=== PATIENT | female | born 1945 | race Caucasian/White ===

== ENCOUNTER → 2018-07-12 01:59 | Outpatient (CLI) | payer BC, SELFPAY ==
--- NOTE | 2018-07-12 16:19 | DI.REPORT_ITS ---
SYMPTOMS/DIAGNOSIS: SCREENING, Z12.31 MAMMOGRAMS: Mammograms were interpreted according to the usual protocol including computer analysis with CAD system, tomosynthesis and C view imaging. The breast tissue is of moderate radiodensity. There is no evidence of a mass. There are no suspicious calcifications. When compared with a previous examination, there is a question regarding interval development of a tiny area of nodularity in the superior portion of the right breast. Further evaluation of this patient with a mediolateral compression spot film and ultrasound is recommended. SUMMARY: Category 0. Breast density category B. MQSA ASSESSMENT OF FINDINGS: Incomplete: Needs additional imaging evaluation. Category 0. Patient will receive a letter notifying them of these results. BI-RADS category B. There are scattered areas of fibroglandular density.
== END ==
PROVIDERS: PCP Family Medicine; Visit Provider Family Medicine
DX: Z12.31 Encounter for screening mammogram for malignant neoplasm of breast (principal); R92.8 Other abnormal and inconclusive findings on diagnostic imaging of breast
CPT/HCPCS: 77063; 77067

== ENCOUNTER 2018-07-18 06:25 | Outpatient (CLI) | payer BC, SELFPAY ==
--- NOTE | 2018-07-18 13:50 | DI.MAMMO_ITS ---
SYMPTOMS/DIAGNOSIS: F/U MAMMO, NODULARITY ADDITIONAL MAMMOGRAPHIC VIEWS RIGHT BREAST: Additional images are interpreted according to the usual protocol including tomosynthesis and 2D imaging. Additional mammographic views were obtained to evaluate suboptimally defined nodular radiodensity identified on recent mammogram in the superior posterior aspect of the right breast on MLO view. Tomographic spot compression view shows 4 mm in diameter well circumscribed nodule with a clearly defined hilum. This appears to have been present on multiple previous examinations and is unchanged or smaller on today's examination. The findings are consistent with an intramammary lymph node. CONCLUSION: No specific evidence of malignancy. Follow up mammogram requested in 12 months. Category 2. Breast density Category B. SA ASSESSMENT OF FINDINGS: Negative with benign findings. Category 2. Patient will receive a letter notifying them of these results. BI-RADS category B. There are scattered areas of fibroglandular density.
== END 2018-07-18 06:45 ==
PROVIDERS: PCP Family Medicine; Visit Provider Family Medicine
DX: Z12.31 Encounter for screening mammogram for malignant neoplasm of breast (principal); R92.8 Other abnormal and inconclusive findings on diagnostic imaging of breast; N60.81 Other benign mammary dysplasias of right breast
CPT/HCPCS: 77063; 77067

== ENCOUNTER 2018-09-09 00:11 | Outpatient (CLI) | payer BC, SELFPAY ==
[2018-09-09 09:34] LABS: Abs Immature Grans 0.03 k/cumm (0.0-0.09); Absolute Basophil Count 0.03 k/cumm (0.0-0.2); Absolute Eosinophil Count 0.47 k/cumm (0.0-0.7); Absolute Lymphocyte Count 1.67 k/cumm (1.2-3.4); Absolute Monocyte Count 0.69 k/cumm (0.11-0.7); Absolute Neutrophil Count 3.04 k/cumm (1.2-6.7); Basophils % 0.5; Eosinophils % 7.9; HCT 39.7 % (36.0-46.0); HGB 13.2 g/dL (12.0-15.5); Immature Grans % 0.5; Lymphocytes % 28.2; Mean Corp. HGB Concentration 33.2 g/dL (32.0-36.0); Mean Corpuscular Hemoglobin 31.1 pg (27.0-33.0); Mean Corpuscular Volume 93.4 fL (80-95); Mean Platelet Volume 9.2 fL (8.0-11.0); Monocytes % 11.6; Neutrophils % 51.3; Platelet Count 254 x1000/uL (130-400); RBC 4.25 m/cumm (4.00-5.20); RBC Distribution Width 14.2 % (11.7-14.6); White Blood Cell Count 5.93 k/cumm (4.4-10.8)
[2018-09-09 10:47] LABS: ALT 25 U/L (12-78); AST 19 U/L (15-37); Albumin 3.6 g/dL (3.4-5.0); Alkaline Phosphatase 127 U/L (46-116); Anion Gap 10.9 mmol/L (3-11); BUN 13 mg/dL (7-18); Bilirubin, Total 0.6 mg/dL (0.2-1.0); C-Reactive Protein 0.36 mg/dL (0.0-0.3); CO2 28.1 mmol/L (21.0-32.0); CREATININE 0.98 mg/dL (0.55-1.02); Calcium 9.3 mg/dL (8.5-10.1); Chloride 103 mmol/L (98-107); Estimated GFR 55.63 (mL/min/1.73m2); Glucose 82 mg/dL (70-100); Sodium 142 mmol/L (136-145); Total Protein 6.3 g/dL (6.4-8.2)
[2018-09-09 10:50] LABS: ESR 20 MM/HR (0-30)
== END 2018-09-09 00:31 ==
PROVIDERS: PCP Family Medicine; Visit Provider Internal Medicine
DX: M06.00 Rheumatoid arthritis without rheumatoid factor, unspecified site (principal)
CPT/HCPCS: 36415; 80053; 85652; 85025; 86140

== ENCOUNTER 2018-09-19 01:05 | Outpatient (CLI) | payer BC, SELFPAY ==
--- NOTE | 2018-09-19 17:05 | DI.DEXA_ITS ---
SYMPTOM/DIAGNOSIS: BONE DISORDER, M89.9 DEXA SCAN: Dexa scan was performed according to the usual protocol. The scanogram is unremarkable. For the left forearm, a T score of -2.4 and a Z score of -0.2 are consistent with osteoporosis and a high fracture risk. For the left hip, a T score of - 1.4 and a Z score of 0.2 are indicative of osteopenia and an increased fracture risk. For the lumbar spine, a T score of 0.3 and a Z score of 2.6 are within the normal range.
== END 2018-09-19 01:25 ==
PROVIDERS: PCP Family Medicine; Visit Provider Internal Medicine
DX: M81.0 Age-related osteoporosis without current pathological fracture (principal); M85.88 Other specified disorders of bone density and structure, other site
CPT/HCPCS: 77080

== ENCOUNTER 2018-12-12 01:36 | Outpatient (CLI) | payer BC, SELFPAY ==
[2018-12-12 10:09] LABS: Abs Immature Grans 0.02 k/cumm (0.0-0.09); Absolute Basophil Count 0.03 k/cumm (0.0-0.2); Absolute Eosinophil Count 0.32 k/cumm (0.0-0.7); Absolute Monocyte Count 0.55 k/cumm (0.11-0.7); Absolute Neutrophil Count 4.66 k/cumm (1.2-6.7); Basophils % 0.4; Eosinophils % 4.3; HCT 41.6 % (36.0-46.0); HGB 13.9 g/dL (12.0-15.5); Immature Grans % 0.3; Lymphocytes % 24.4; Mean Corp. HGB Concentration 33.4 g/dL (32.0-36.0); Mean Corpuscular Hemoglobin 31.4 pg (27.0-33.0); Mean Corpuscular Volume 94.1 fL (80-95); Monocytes % 7.5; Neutrophils % 63.1; Platelet Count 228 x1000/uL (130-400); RBC 4.42 m/cumm (4.00-5.20); RBC Distribution Width 13.9 % (11.7-14.6); White Blood Cell Count 7.38 k/cumm (4.4-10.8)
[2018-12-12 10:56] LABS: ESR 14 MM/HR (0-30)
[2018-12-12 11:40] LABS: ALT 33 U/L (12-78); AST 27 U/L (15-37); Albumin 3.7 g/dL (3.4-5.0); Alkaline Phosphatase 112 U/L (46-116); BUN 21 mg/dL (7-18); Bilirubin, Total 0.9 mg/dL (0.2-1.0); C-Reactive Protein 0.23 mg/dL (0.0-0.3); CREATININE 0.96 mg/dL (0.55-1.02); Calcium 8.9 mg/dL (8.5-10.1); Chloride 105 mmol/L (98-107); Estimated GFR 56.97 (mL/min/1.73m2); Glucose 77 mg/dL (70-100); Potassium 3.9 mmol/L (3.5-5.1); Sodium 142 mmol/L (136-145); Total Protein 6.6 g/dL (6.4-8.2)
== END 2018-12-12 01:56 ==
PROVIDERS: PCP Family Medicine; Visit Provider Internal Medicine
DX: M06.00 Rheumatoid arthritis without rheumatoid factor, unspecified site (principal)
CPT/HCPCS: 36415; 80053; 85652; 85025; 86140

== ENCOUNTER 2019-01-08 14:44 | Outpatient (CLI) | payer BC, SELFPAY ==
--- NOTE | 2019-01-08 12:00 | DI.RAD_ITS ---
SYMPTOMS/DIAGNOSIS: KNEE PAIN X 1 WEEK, M25.562 LEFT KNEE: The joint spaces are well maintained. There is mild spurring at the articular aspect of the patella and quadriceps insertion on the patella. No joint effusion is seen. The bones appear normally mineralized. IMPRESSION: Mild patellofemoral degenerative changes.
[2019-01-08 13:13] LABS: Hemoglobin A1C 5.6 % (4.5-6.2)
[2019-01-08 14:17] LABS: Vitamin D 25 Total 75.2 ng/ml (30-100)
== END 2019-01-08 15:04 ==
PROVIDERS: PCP Family Medicine; Visit Provider Family Medicine
DX: M25.562 Pain in left knee (principal); M17.12 Unilateral primary osteoarthritis, left knee; R73.09 Other abnormal glucose; E55.9 Vitamin D deficiency, unspecified
CPT/HCPCS: 36415; 73562; 82306; 83036

== ENCOUNTER 2019-03-10 07:28 | Outpatient (CLI) | payer BC, SELFPAY ==
[2019-03-10 09:51] LABS: Abs Immature Grans 0.02 k/cumm (0.0-0.09); Absolute Basophil Count 0.02 k/cumm (0.0-0.2); Absolute Eosinophil Count 0.23 k/cumm (0.0-0.7); Absolute Lymphocyte Count 1.84 k/cumm (1.2-3.4); Absolute Monocyte Count 0.68 k/cumm (0.11-0.7); Absolute Neutrophil Count 2.82 k/cumm (1.2-6.7); Basophils % 0.4; Eosinophils % 4.1; HCT 41.4 % (36.0-46.0); HGB 14.1 g/dL (12.0-15.5); Immature Grans % 0.4; Lymphocytes % 32.8; Mean Corp. HGB Concentration 34.1 g/dL (32.0-36.0); Mean Corpuscular Hemoglobin 31.4 pg (27.0-33.0); Mean Corpuscular Volume 92.2 fL (80-95); Mean Platelet Volume 9.3 fL (8.0-11.0); Monocytes % 12.1; Neutrophils % 50.2; Platelet Count 229 x1000/uL (130-400); RBC 4.49 m/cumm (4.00-5.20); RBC Distribution Width 13.5 % (11.7-14.6); White Blood Cell Count 5.61 k/cumm (4.4-10.8)
[2019-03-10 10:27] LABS: ESR 14 MM/HR (0-30)
[2019-03-10 10:31] LABS: ALT 23 U/L (12-78); AST 19 U/L (15-37); Albumin 3.9 g/dL (3.4-5.0); Alkaline Phosphatase 94 U/L (46-116); Anion Gap 10.4 mmol/L (3-11); BUN 19 mg/dL (7-18); Bilirubin, Total 0.7 mg/dL (0.2-1.0); C-Reactive Protein 0.19 mg/dL (0.0-0.3); CO2 25.6 mmol/L (21.0-32.0); CREATININE 0.94 mg/dL (0.55-1.02); Chloride 106 mmol/L (98-107); Estimated GFR 58.37 (mL/min/1.73m2); Glucose 95 mg/dL (70-100); Potassium 4.3 mmol/L (3.5-5.1); Sodium 142 mmol/L (136-145); Total Protein 6.7 g/dL (6.4-8.2)
== END 2019-03-10 07:48 ==
PROVIDERS: PCP Family Medicine; Visit Provider Internal Medicine
DX: M06.00 Rheumatoid arthritis without rheumatoid factor, unspecified site (principal)
CPT/HCPCS: 36415; 80053; 85652; 85025; 86140

== ENCOUNTER 2019-06-15 07:43 | Outpatient (CLI) | payer BC, SELFPAY ==
[2019-06-15 08:08] LABS: Abs Immature Grans 0.01 k/cumm (0.0-0.09); Absolute Basophil Count 0.02 k/cumm (0.0-0.2); Absolute Eosinophil Count 0.24 k/cumm (0.0-0.7); Absolute Lymphocyte Count 1.64 k/cumm (1.2-3.4); Absolute Monocyte Count 0.64 k/cumm (0.11-0.7); Absolute Neutrophil Count 3.68 k/cumm (1.2-6.7); Basophils % 0.3; Eosinophils % 3.9; HCT 43.6 % (36.0-46.0); HGB 14.5 g/dL (12.0-15.5); Immature Grans % 0.2; Lymphocytes % 26.3; Mean Corp. HGB Concentration 33.3 g/dL (32.0-36.0); Mean Corpuscular Hemoglobin 31.2 pg (27.0-33.0); Mean Corpuscular Volume 93.8 fL (80-95); Mean Platelet Volume 9.3 fL (8.0-11.0); Monocytes % 10.3; Platelet Count 243 x1000/uL (130-400); RBC 4.65 m/cumm (4.00-5.20); RBC Distribution Width 13.7 % (11.7-14.6); White Blood Cell Count 6.23 k/cumm (4.4-10.8)
[2019-06-15 09:35] LABS: ESR 16 mm/hr (0-30)
[2019-06-15 10:01] LABS: ALT 27 U/L (12-78); AST 17 U/L (15-37); Albumin 4.1 g/dL (3.4-5.0); Alkaline Phosphatase 86 U/L (46-116); Anion Gap 8.7 mmol/L (3-11); BUN 21 mg/dL (7-18); Bilirubin, Total 0.8 mg/dL (0.2-1.0); CO2 28.3 mmol/L (21.0-32.0); CREATININE 1.14 mg/dL (0.55-1.02); Calcium 9.1 mg/dL (8.5-10.1); Chloride 103 mmol/L (98-107); Estimated GFR 46.72 (mL/min/1.73m2); Glucose 94 mg/dL (70-100); Potassium 4.2 mmol/L (3.5-5.1); Sodium 140 mmol/L (136-145); Total Protein 6.9 g/dL (6.4-8.2)
== END 2019-06-15 08:03 ==
PROVIDERS: PCP Family Medicine; Visit Provider Internal Medicine
DX: M06.00 Rheumatoid arthritis without rheumatoid factor, unspecified site (principal); Z79.899 Other long term (current) drug therapy
CPT/HCPCS: 36415; 80053; 85652; 85025; 86140

== ENCOUNTER 2019-07-20 03:48 | Outpatient (CLI) | payer BC, SELFPAY ==
[2019-07-20 07:43] LABS: Abs Immature Grans 0.01 k/cumm (0.0-0.09); Absolute Basophil Count 0.02 k/cumm (0.0-0.2); Absolute Eosinophil Count 0.31 k/cumm (0.0-0.7); Absolute Lymphocyte Count 1.53 k/cumm (1.2-3.4); Absolute Monocyte Count 0.53 k/cumm (0.11-0.7); Absolute Neutrophil Count 2.67 k/cumm (1.2-6.7); Basophils % 0.4; Eosinophils % 6.1; HGB 13.4 g/dL (12.0-15.5); Immature Grans % 0.2; Lymphocytes % 30.2; Mean Corp. HGB Concentration 33.5 g/dL (32.0-36.0); Mean Corpuscular Hemoglobin 31.5 pg (27.0-33.0); Mean Corpuscular Volume 94.1 fL (80-95); Mean Platelet Volume 9.3 fL (8.0-11.0); Monocytes % 10.5; Neutrophils % 52.6; Platelet Count 228 x1000/uL (130-400); RBC 4.25 m/cumm (4.00-5.20); RBC Distribution Width 13.4 % (11.7-14.6); White Blood Cell Count 5.07 k/cumm (4.4-10.8)
[2019-07-20 08:30] LABS: ESR 11 mm/hr (0-30)
[2019-07-20 09:13] LABS: ALT 29 U/L (14-59); AST 23 U/L (15-37); Albumin 3.8 g/dL (3.4-5.0); Alkaline Phosphatase 71 U/L (46-116); Anion Gap 8.4 mmol/L (3-11); BUN 15 mg/dL (7-18); Bilirubin, Total 0.6 mg/dL (0.2-1.0); C-Reactive Protein 0.23 mg/dL (0.0-0.3); CO2 27.6 mmol/L (21.0-32.0); CREATININE 1.06 mg/dL (0.55-1.02); Calcium 8.8 mg/dL (8.5-10.1); Chloride 108 mmol/L (98-107); Estimated GFR 50.81 (mL/min/1.73m2); Glucose 91 mg/dL (70-100); Potassium 4.5 mmol/L (3.5-5.1); Sodium 144 mmol/L (136-145); Total Protein 6.5 g/dL (6.4-8.2)
== END 2019-07-20 04:08 ==
PROVIDERS: PCP Family Medicine; Referring Provider Family Medicine; Visit Provider Internal Medicine
DX: M06.00 Rheumatoid arthritis without rheumatoid factor, unspecified site (principal); Z79.899 Other long term (current) drug therapy
CPT/HCPCS: 36415; 80053; 85652; 85025; 86140

== ENCOUNTER 2019-07-30 00:59 | Outpatient (CLI) | payer BC, SELFPAY ==
--- NOTE | 2019-07-30 15:22 | DI.RAD_ITS ---
EXAM: XR LUMBAR SPINE COMPLETE CLINICAL HISTORY: LOW BACK AND LT LEG PAIN,M54.5,G89.29 TECHNIQUE: COMPARISON: No exams were available for comparison FINDINGS: Five views were obtained. There is a mild left convex lumbar scoliosis . There are moderate hypertr ophic degenerative changes of the facet joints and vertebral endplates throughout the lumbar spine. No compression fracture seen. Multilevel disc space loss of height noted. No gross spondylolysis or spondylolisthesis. Mild DJD of the SI joints and hips noted. IMPRESSION: Moderate degenerative changes of the lumbar spine.
--- NOTE | 2019-07-30 15:22 | DI.RAD_ITS ---
EXAM: XR HIP PELVIS ADULT BL CLINICAL HISTORY: BILAT HIP PAIN, M25.559 TECHNIQUE: COMPARISON: No exams were available for comparison FINDINGS: Four views were obtained. There is moderate loss of cartilaginous joint spaces of both hips. Modera te hypertrophic spurring of the acetabula and femoral heads noted. Mild DJD of the SI joints bilater ally. IMPRESSION: Moderate DJD both hands.
== END 2019-07-30 01:19 ==
PROVIDERS: PCP Family Medicine; Visit Provider Family Medicine
DX: M25.551 Pain in right hip (principal); M25.552 Pain in left hip; M16.0 Bilateral primary osteoarthritis of hip; M53.3 Sacrococcygeal disorders, not elsewhere classified; M54.5 Low back pain; M79.605 Pain in left leg; G89.29 Other chronic pain; M47.26 Other spondylosis with radiculopathy, lumbar region
CPT/HCPCS: 73521; 72110

== ENCOUNTER 2019-10-15 00:55 | Outpatient (CLI) | payer BC, SELFPAY ==
[2019-10-15] MEDS: methylPREDNISolone ACETATE 80 MG/ML VIAL IM ×2 (12:58→13:02)
[2019-10-15] MEDS: Bupivacaine 0.5% Pres-Free 10 ML VIAL IJ ×2 (12:59→13:03)
[2019-10-15] MEDS: Omnipaque 300 MG/ML 10 ML BTL IJ ×2 (13:01→13:03)
--- NOTE | 2019-10-15 13:28 | DI.RAD_ITS ---
EXAM: RF JOINT INJECTION FLUORO GUID CLINICAL HISTORY: HIP PAIN, ARTHRITIS, M16.10 TECHNIQUE: 2D and realtime digital imaging was performed. COMPARISON: No exams were available for comparison FINDINGS: Fluoroscopy was utilized by Dr. Hedrick during the performance of a right hip injection. Please ref er to the procedure report for complete details. Fluoro Time: 10.4 seconds
--- NOTE | 2019-10-15 13:32 | DI.RAD_ITS ---
EXAM: RF JOINT INJECTION FLUORO GUID CLINICAL HISTORY: HIP PAIN, ARTHRITIS, M16.10 TECHNIQUE: 2D and realtime digital imaging was performed. COMPARISON: No exams were available for comparison FINDINGS: Fluoroscopy was utilized by Dr. Hedrick during the performance of a left hip injection. Please refe r to the procedure report for complete details. Fluoro Time: 9.9 seconds
--- NOTE | 2019-10-15 17:30 | W.PROCNOTE ---
Date of service: 10/15/19 Time of Service: 12:30 Procedure Note Date of procedure: 10/15/19 Procedure: Bilateral hip Injection with Fluoroscopic Guidance Surgeon/Proceduralist/Physician: Raymond Hedrick Procedure Diagnosis: Bilateral hip Osteoarthritis Procedure Indications: Shona has had persistent pain of both hip and groin. Noninvasive measures have been tried. To serve as both diagnostic and therapeutic, an injection under fluoroscopy was recommended. I had discussed the risks of the procedure and the patient elected to proceed. Procedure Description: Shona was greeted in the flouroscopy room. The consent was reviewed with the patient and signed. The patient was then placed in the supine position on the fluoroscopy table. The LEFT hip was then prepped with Chloraprep. The anterolateral injection starting point was identiifed by bony landmarks and fluoroscopy. The skin and soft tissue in the tract of the injection was anesthetized with 1% Lidocaine. A spinal needle was then inserted deep into the hip joint at the level of the lateral femoral neck under fluoroscopic guidance. A small amount of Omnipaque solution was injected to confirm intraarticular placement. Once confirmed, the hip was injected with 5cc of 0.5% Bupivacaine and 80mg of Depo-Medrol. A bandaid was placed on the injection site. The RIGHT hip was then prepped with Chloraprep. The anterolateral injection starting point was identiifed by bony landmarks and fluoroscopy. The skin and soft tissue in the tract of the injection was anesthetized with 1% Lidocaine. A spinal needle was then inserted deep into the hip joint at the level of the lateral femoral neck under fluoroscopic guidance. A small amount of Omnipaque solution was injected to confirm intraarticular placement. Once confirmed, the hip was injected with 5cc of 0.5% Bupivicaine and 80mg of Depo-Medrol. A bandaid was placed on the injection site. Shona tolerated the procedure well and noted slight improvement in pre-injection pain.
== END 2019-10-15 01:15 ==
PROVIDERS: PCP Family Medicine; Visit Provider Student in an Organized Health Care Education/Training Program
DX: M25.551 Pain in right hip (principal); M25.552 Pain in left hip; M16.0 Bilateral primary osteoarthritis of hip
CPT/HCPCS: 20610 ×2; 77002; J1040

== ENCOUNTER 2019-12-29 01:49 | Outpatient (CLI) | payer BC, SELFPAY ==
[2019-12-29 10:31] LABS: Abs Immature Grans 0.02 k/cumm (0.0-0.09); Absolute Basophil Count 0.02 k/cumm (0.0-0.2); Absolute Eosinophil Count 0.23 k/cumm (0.0-0.7); Absolute Lymphocyte Count 1.57 k/cumm (1.2-3.4); Absolute Monocyte Count 0.68 k/cumm (0.11-0.7); Absolute Neutrophil Count 3.57 k/cumm (1.2-6.7); Basophils % 0.3; Eosinophils % 3.8; HCT 40.3 % (36.0-46.0); HGB 13.3 g/dL (12.0-15.5); Immature Grans % 0.3 %; Lymphocytes % 25.8; Mean Corpuscular Hemoglobin 31.7 pg (27.0-33.0); Mean Platelet Volume 9.3 fL (8.0-11.0); Monocytes % 11.2; Neutrophils % 58.6; Platelet Count 213 x1000/uL (130-400); RBC Distribution Width 13.7 % (11.7-14.6); White Blood Cell Count 6.09 k/cumm (4.4-10.8)
[2019-12-29 10:44] LABS: C-Reactive Protein 0.27 mg/dL (0.0-0.3)
[2019-12-29 10:46] LABS: ALT 29 U/L (14-59); AST 24 U/L (15-37); Albumin 4.1 g/dL (3.4-5.0); Alkaline Phosphatase 66 U/L (46-116); Anion Gap 10.7 mmol/L (3-11); BUN 14 mg/dL (7-18); Bilirubin, Total 0.9 mg/dL (0.2-1.0); CO2 26.3 mmol/L (21.0-32.0); CREATININE 1.03 mg/dL (0.55-1.02); Calcium 8.4 mg/dL (8.5-10.1); Chloride 107 mmol/L (98-107); Estimated GFR 52.38 (mL/min/1.73m2); Glucose 77 mg/dL (74-106); Potassium 4.1 mmol/L (3.5-5.1); Sodium 144 mmol/L (136-145); Total Protein 6.4 g/dL (6.4-8.2)
[2019-12-29 11:59] LABS: ESR 15 mm/hr (0-30)
== END 2019-12-29 02:09 ==
PROVIDERS: Internal Medicine; PCP Family Medicine; Visit Provider Family Medicine
DX: M06.00 Rheumatoid arthritis without rheumatoid factor, unspecified site (principal); Z79.899 Other long term (current) drug therapy; I10 Essential (primary) hypertension; M16.10 Unilateral primary osteoarthritis, unspecified hip
CPT/HCPCS: 36415; 80053; 85652; 85025; 86140

== ENCOUNTER 2020-03-28 02:17 | Outpatient (CLI) | payer BC, SELFPAY ==
[2020-03-28 09:52] LABS: Abs Immature Grans 0.02 k/cumm (0.0-0.09); Absolute Basophil Count 0.02 k/cumm (0.0-0.2); Absolute Eosinophil Count 0.36 k/cumm (0.0-0.7); Absolute Lymphocyte Count 2.02 k/cumm (1.2-3.4); Absolute Monocyte Count 0.85 k/cumm (0.11-0.7); Absolute Neutrophil Count 4.37 k/cumm (1.2-6.7); Basophils % 0.3; Eosinophils % 4.7; HCT 39.9 % (36.0-46.0); HGB 13.4 g/dL (12.0-15.5); Immature Grans % 0.3 %; Lymphocytes % 26.4; Mean Corp. HGB Concentration 33.6 g/dL (32.0-36.0); Mean Corpuscular Hemoglobin 31.9 pg (27.0-33.0); Mean Platelet Volume 9.2 fL (8.0-11.0); Monocytes % 11.1; Neutrophils % 57.2; Platelet Count 232 x1000/uL (130-400); RBC Distribution Width 13.5 % (11.7-14.6); White Blood Cell Count 7.64 k/cumm (4.4-10.8)
[2020-03-28 10:46] LABS: ALT 28 U/L (14-59); AST 24 U/L (15-37); Alkaline Phosphatase 67 U/L (46-116); Anion Gap 5.7 mmol/L (3-11); BUN 21 mg/dL (7-18); Bilirubin, Total 0.7 mg/dL (0.2-1.0); C-Reactive Protein 0.17 mg/dL (0.0-0.3); CO2 28.3 mmol/L (21.0-32.0); CREATININE 1.08 mg/dL (0.55-1.02); Calcium 8.7 mg/dL (8.5-10.1); Chloride 107 mmol/L (98-107); Estimated GFR 49.59 (mL/min/1.73m2); Glucose 81 mg/dL (74-106); Potassium 4.8 mmol/L (3.5-5.1); Sodium 141 mmol/L (136-145); Total Protein 6.5 g/dL (6.4-8.2)
[2020-03-28 10:55] LABS: ESR 16 mm/hr (0-30)
[2020-03-28 10:56] LABS: Calculated LDL 82 mg/dL (<100); Cholesterol 153 mg/dL (<200); HDL Cholesterol 59 mg/dL (40-60); Triglyceride 60 mg/dL (<150)
== END 2020-03-28 02:37 ==
PROVIDERS: PCP Family Medicine; Visit Provider Internal Medicine
DX: M06.00 Rheumatoid arthritis without rheumatoid factor, unspecified site (principal); Z79.899 Other long term (current) drug therapy; I10 Essential (primary) hypertension
CPT/HCPCS: 36415; 80053; 80061; 85652; 85025; 86140

== ENCOUNTER 2020-05-08 12:27 | Outpatient (CLI) | payer BC, SELFPAY ==
--- NOTE | 2020-05-08 12:15 | DI.RAD_ITS ---
EXAM: XR PELVIS AP CLINICAL HISTORY: OA hips TECHNIQUE: COMPARISON: CR XR HIP PELVIS ADULT BL from 07/30/2019 FINDINGS: Single AP view of the hips was. The cartilaginous joint spaces of both hips show moderate narrowing. There is moderate hypertrophic marginal osteophyte formation acetabula and femoral heads bilaterall y. Findings show little if any interval change in comparison with prior films of July 2019. IMPRESSION: Moderate bilateral hip DJD.
== END 2020-05-08 12:47 ==
PROVIDERS: PCP Family Medicine; Referring Provider Family Medicine; Visit Provider Physician Assistant
DX: M16.0 Bilateral primary osteoarthritis of hip (principal)
CPT/HCPCS: 72170

== ENCOUNTER 2020-05-23 06:21 | Day surgery (SDC) | payer BC, SELFPAY ==
[2020-05-23 06:35] VITALS: BP 161/85; PULSE 75; RESP 18; TEMP 36.4; O2SAT 99
[2020-05-23] MEDS: Tetracaine 0.5% 4 ML BTL OS (07:22)
[2020-05-23] MEDS: Lidocaine 2% Jelly 6 ML SYR (07:23)
[2020-05-23] MEDS: Balanced Salt Soln.-PLUS 500 ML BAG (07:32)
[2020-05-23] MEDS: Lidocaine 1% Pres-Free 5 ML VIAL (07:32)
[2020-05-23] MEDS: Moxifloxacin-PF 1 MG/ML VIAL (07:38)
--- NOTE | 2020-05-23 08:07 | W.PM.DSUDISC ---
Discharge Plan Disposition Patient Disposition: HOME Condition: Good Discharge Details Attending Provider: Abisai Kramer Primary Care Provider: Kiera Ji Home Meds and New Rx's Prescriptions: No Action alendronate 70 mg tablet 70 mg PO QWEEK Qty: 24 RF: 3 TheraTears 0.25 % drops 1 drp ophthalmic (eye) BID RF: 0 multivitamin [Daily Multi-Vitamin] 1 EACH tablet 1 ea PO DAILY RF: 0 calcium carbonate-vitamin D3 1 EACH tablet 1 ea PO DAILY RF: 0 vitamin B complex [B Complex-Vitamin B12] 1 EACH tablet 1 ea PO DAILY RF: 0 cholecalciferol (vitamin D3) 5,000 UNIT capsule 5,000 unit PO DAILY RF: 0 aspirin 325 MG tablet,delayed release (DR/EC) 325 mg PO DAILY RF: 0 atorvastatin 10 mg tablet 10 mg PO QHS Qty: 90 RF: 4 magnesium 250 mg tablet 250 mg PO BID RF: 0 losartan 100 mg tablet 100 mg PO DAILY Qty: 90 RF: 12 folic acid 1 MG tablet 1 mg PO DAILY RF: 0 methotrexate sodium 2.5 mg tablet 12.5 mg PO .WEEKLY RF: 0 Discharge Instructions Stand Alone Forms: Post-op Block Cataract, Post-op Topical Cataract, Osman Early (DSU) Discharge Orders Discharge Orders: Discharge Order (Routine); Ordered 05/23/20 Ordered By: Abisai Kramer DS: Diagnosis Discharge Diagnosis (1) Nuclear sclerotic cataract of left eye: Status: Resolved
--- NOTE | 2020-05-23 08:09 | W.PM.OP ---
Date of service: 05/23/20 Time of Service: 08:09 Operative Note Operative Note DATE OF PROCEDURE: 05/23/20 PRE-OP DIAGNOSIS: Nuclear cataract, left eye POST-OP DIAGNOSIS: same PROCEDURE: Cataract extraction using phacoemulsification with intraocular lens implant, left eye SURGEON: Abisai Kramer ANESTHESIA: MAC and local (sub-tenon's anesthetic infiltration) ESTIMATED BLOOD LOSS: 0 PATHOLOGY: none sent COMPLICATIONS: None Patient was transported to: same day Patient's condition: stable Implants: Gurwinder [employer] Gurw[employer] / [employer] Tecnis ZCB00 Indications: Progressive decreased vision due to cataract, left eye Procedure Description: CATARACT SURGERY OPERATIVE REPORT PREOPERATIVE DIAGNOSIS: Nuclear cataract, left eye POSTOPERATIVE DIAGNOSIS: Same OPERATION: Cataract extraction using phacoemulsification with posterior chamber intraocular lens implant, left eye. IOL: IOL Registered Public Health Nurse/Model: [employer] Vision / KYE Tecnis ZCB00 IOL Power: + 22.0 diopters IOL Serial Number: [id number] Optic Diameter: 6.0mm Haptic/Overall Diameter: 13.0mm PHACO INFO: Sher Nanalysisurion Vision System with OZil and Active Fluidics Cumulative Dispersed Energy (CDE): 5.96 seconds SURGEON: Abisai Kramer MD, ÁNGEL ANESTHESIA: Monitored Anesthesia Care (MAC), with local sub-tenon's anesthetic infiltration COMPLICATIONS: None SPECIMENS: None INDICATIONS FOR PROCEDURE: The patient is a 74-year-old lady with history of diminished visual acuity in her left eye. She is noted to have a moderate nuclear cataract. The option of cataract surgery was offered to the patient and she wished to proceed. PROCEDURE: The correct surgical eye was identified and marked as the left eye and the pupil was dilated in the preoperative area using mydriatics and cycloplegics. The dilated pupil size was 7.0 mm. Oral sedation was administered in the form of an Imprimis MKO Melt (midazolam 3mg/ketamine 25mg/ondansetron 2mg). The patient was brought to the operating room where cardiopulmonary monitoring was instituted and surgical time-out was performed, confirming the correct operative eye and IOL power. Topical anesthesia was administered and ophthalmic povidone-iodine 5% was instilled into the conjunctival fornices. Lidocaine gel was applied to the cornea and the joseline-ocular area was prepped with Betadine 10% solution and draped in the usual sterile fashion for intraocular surgery, including an aperture drape. A Tegaderm transparent film dressing was cut in half and used to cover the lashes and lid margins. Care was taken to sequester the lashes and lid margins under the Tegaderm dressing. A lid speculum was placed between the lids of the operative eye and the Cedrick-Randi operating microscope was maneuvered into position. Rigoberto scissors were then used to make a conjunctival buttonhole approximately 6mm posterior to the limbus in the inferonasal quadrant. Blunt dissection was carried out to expose bare sclera, and a blunt-tipped sub-tenon?s anesthesia cannula was introduced and passed posteriorly along the globe where non-preserved plain lidocaine was injected into posterior sub-Tenon?s space. A sideport knife was used to make a paracentesis port superior/superiortemporally. Intraocular phenylephrine/lidocaine was injected into the anterior chamber. The anterior chamber was then filled with Healon Pro. A 2.4mm keratome knife was used to create a half-thickness groove at the limbus and then to construct a three-plane near-clear corneal tunnel extending 2.0mm into clear cornea in the temporal position. . A flap was raised on the anterior capsule and capsulorhexis forceps were used to complete a continuous curvilinear capsulorhexis of 5.0 mm. Balanced salt solution was then used to perform cortical cleaving hydrodissection and nuclear hydrodelineation until the lens could be freely rotated within the capsular bag. The lens nucleus was then disassembled and removed within the capsular bag and iris plane using phacoemulsification. Residual cortical material was removed using the 45-degree angled silicone I/A tip with 0.3mm port. The posterior capsule was carefully polished to remove as much residual lens epithelial cells as safely possible. The capsular bag was then inflated and the anterior chamber deepened with viscoelastic. The lens implant described above was inserted into the capsular bag using the KYE [place] Injector. A Kuglen hook was used to dial the IOL into position. Residual viscoelastic was then removed first from posterior to the IOL, then from the anterior chamber using the I/A handpiece. The lens implant was noted to center nicely within the capsular bag. The incisions were stromally hydrated, and the anterior chamber was reformed using BSS. Then 0.5cc of moxifloxacin 1.0mg/ml were injected into the capsular bag and anterior chamber. The incisions were checked with a Weck spear and found to be secure. Several drops of ophthalmic povidone-iodine 5% were then applied to the eye followed by two drops of Imprimis combination prednisolone/moxifloxacin/nepafenac solution. The drapes were removed and a clear plastic protective eye shield was placed over the eye. The patient was then returned to [facility] Surgery in stable condition.
[2020-05-23 08:30] VITALS: BP 131/66; PULSE 70; RESP 16; TEMP 36.3; O2SAT 99
== END 2020-05-23 08:40 | disposition home or self-care (01) ==
PROVIDERS: PCP Family Medicine; Visit Provider Ophthalmology
PROC: (CPT 66984; principal; 2020-05-23 07:30)
DX: H25.12 Age-related nuclear cataract, left eye (principal); I10 Essential (primary) hypertension
CPT/HCPCS: 66984; V2632

== ENCOUNTER 2020-06-06 02:19 | Outpatient (CLI) | payer BC, SELFPAY ==
[2020-06-06 10:02] LABS: HGB 13.6 g/dL (12.0-15.5); Mean Corp. HGB Concentration 33.2 g/dL (32.0-36.0); Mean Corpuscular Hemoglobin 31.3 pg (27.0-33.0); Mean Corpuscular Volume 94.3 fL (80-95); Mean Platelet Volume 9.1 fL (8.0-11.0); Platelet Count 254 x1000/uL (130-400); RBC 4.35 m/cumm (4.00-5.20); White Blood Cell Count 6.71 k/cumm (4.4-10.8)
[2020-06-06 10:53] LABS: Anion Gap 9.9 mmol/L (3-11); BUN 15 mg/dL (7-18); CO2 26.1 mmol/L (21.0-32.0); CREATININE 1.03 mg/dL (0.55-1.02); Chloride 109 mmol/L (98-107); Estimated GFR 52.38 (mL/min/1.73m2); Glucose 85 mg/dL (74-106); Potassium 4.1 mmol/L (3.5-5.1); Sodium 145 mmol/L (136-145)
== END 2020-06-06 02:39 ==
PROVIDERS: PCP Family Medicine; Visit Provider Student in an Organized Health Care Education/Training Program
DX: M16.0 Bilateral primary osteoarthritis of hip (principal)
CPT/HCPCS: 36415; 80048; 85027; 86850; 86900; 86901

== ENCOUNTER 2020-06-06 09:51 | Day surgery (SDC) | payer BC, SELFPAY ==
[2020-06-06 10:00] VITALS: BP 160/87; PULSE 78; RESP 16; TEMP 36.1; O2SAT 97
[2020-06-06] MEDS: Midazolam/Ketamine/Ondansetron (3/25/2MG) 1 TAB 1 EACH SL (11:10)
--- NOTE | 2020-06-06 11:12 | W.PM.DSUDISC ---
Discharge Plan Disposition Patient Disposition: HOME Condition: Good Discharge Details Reason For Visit: CATARACT OD Attending Provider: Abisai Kramer Primary Care Provider: Kiera Ji Home Meds and New Rx's Prescriptions: No Action alendronate 70 mg tablet 70 mg PO QWEEK Qty: 24 RF: 3 TheraTears 0.25 % drops 1 drp ophthalmic (eye) BID RF: 0 multivitamin [Daily Multi-Vitamin] 1 EACH tablet 1 ea PO DAILY RF: 0 calcium carbonate-vitamin D3 1 EACH tablet 1 ea PO DAILY RF: 0 vitamin B complex [B Complex-Vitamin B12] 1 EACH tablet 1 ea PO DAILY RF: 0 cholecalciferol (vitamin D3) 5,000 UNIT capsule 5,000 unit PO DAILY RF: 0 aspirin 325 MG tablet,delayed release (DR/EC) 325 mg PO DAILY RF: 0 atorvastatin 10 mg tablet 10 mg PO QHS Qty: 90 RF: 4 magnesium 250 mg tablet 250 mg PO BID RF: 0 folic acid 1 MG tablet 1 mg PO DAILY RF: 0 methotrexate sodium 2.5 mg tablet 12.5 mg PO .WEEKLY RF: 0 losartan 100 mg tablet 100 mg PO HS RF: 0 Discharge Instructions Stand Alone Forms: Post-op Topical CataractOsman (DSU) DS: Diagnosis Discharge Diagnosis (1) Nuclear sclerotic cataract of right eye: Status: Resolved
[2020-06-06] MEDS: Lidocaine 2% Jelly 6 ML SYR (11:16)
[2020-06-06] MEDS: Tetracaine 0.5% 4 ML BTL OD (11:16)
[2020-06-06] MEDS: Balanced Salt Soln.-PLUS 500 ML BAG (11:22)
[2020-06-06] MEDS: Lidocaine 1% Pres-Free 5 ML VIAL (11:22)
[2020-06-06] MEDS: Moxifloxacin-PF 1 MG/ML VIAL (11:29)
--- NOTE | 2020-06-06 11:41 | ROE_ITS ---
Date of service: 06/06/20 Time of Service: 11:41 Operative Note Operative Note DATE OF PROCEDURE: 06/06/20 PRE-OP DIAGNOSIS: Nuclear cataract, right eye POST-OP DIAGNOSIS: same PROCEDURE: Cataract extraction using phacoemulsification with intraocular lens implant, right eye SURGEON: Abisai Kramer ANESTHESIA: MAC and local (sub-tenon's anesthetic infiltration) ESTIMATED BLOOD LOSS: 0 PATHOLOGY: none sent COMPLICATIONS: None Patient was transported to: same day Patient's condition: stable Implants: Gurwinder and Gurw[employer] Vision / [employer] Tecnis ZCB00 intr aocular lens Indications: Progressive decreased vision due to cataract, right eye Procedure Description: CATARACT SURGERY OPERATIVE REPORT PREOPERATIVE DIAGNOSIS: Nuclear cataract, right eye POSTOPERATIVE DIAGNOSIS: Same OPERATION: Cataract extraction using phacoemulsification with posterior chamber intraocular lens implant, right eye. 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 Machine Operator/Model: J[employer]J Vision / KYE Tecnis ZCB00 IOL Power: + 21.50 diopters IOL Serial Number: [id number] Optic Diameter: 6.0mm Haptic/Overall Diameter: 13.0mm PHACO INFO: Sher [employer].imurion Vision System with OZil and Active Fluidics Cumulative Dispersed Energy (CDE): 3.87 seconds SURGEON: Abisai Kramer MD, ÁNGEL ANESTHESIA: Monitored Anesthesia Care (MAC), with local sub-tenon's anesthetic infiltration COMPLICATIONS: None SPECIMENS: None INDICATIONS FOR PROCEDURE: The patient is a 74-year-old lady with history of diminished visual acuity in both eyes secondary to the development of bilateral nuclear cataract. She has already undergone cataract surgery in her left eye and is doing well postoperatively. She now presents for cataract surgery in the right eye. PROCEDURE: The correct surgical eye was identified and marked as the right eye and the pupil was dilated in the preoperative area using mydriatics and cycloplegics. The dilated pupil size was 7.0 mm. Oral sedation was administered in the form of an Imprimis MKO Melt (midazolam 3mg/ketamine 25mg/ondansetron 2mg). The patient was brought to the operating room where cardiopulmonary monitoring was instituted and surgical time-out was performed, confirming the correct operative eye and IOL power. Topical anesthesia was administered and ophthalmic povidone-iodine 5% was instilled into the conjunctival fornices. Lidocaine gel was applied to the cornea and the joseline-ocular area was prepped with Betadine 10% solution and drap ed in the usual sterile fashion for intraocular surgery, including an aperture drape. A Tegaderm transparent film dressing was cut in half and used to cover the lashes and lid margins. Care was taken to sequester the lashes and lid margins under the Tegaderm dressing. A lid speculum was placed between the lids of the operative eye and the Cedrick-Randi operating microscope was maneuvered into position. Rigoberto scissors were then used to make a conjunctival buttonhole approximately 6mm posterior to the limbus in the inferonasal quadrant. Blunt dissection was carried out to expose bare sclera, and a blunt-tipped sub-tenon?s anesthesia cannula was introduced and passed posteriorly along the globe where non- preserved plain lidocaine was injected into posterior sub-Tenon?s space. A sideport knife was used to make a paracentesis port inferiortemporally. Intraocular phenylephrine/lidocaine was injected into the anterior chamber. The anterior chamber was then filled with Healon Pro. A 2.4mm keratome knife was used to create a half-thickness groove at the limbus and then to construct a three-plane near-clear corneal tunnel extending 2.0mm into clear cornea in the superiortemporal position. . A flap was raised on the anterior capsule and capsulorhexis forceps were used to complete a continuous curvilinear capsulorhexis of 5.0 mm. Balanced salt solution was then used to perform cortical cleaving hydrodissection and nuclear hydrodelineation until the lens could be freely rotated within the capsular bag. The lens nucleus was then disassembled and removed within the capsular bag and iris plane using phacoemulsification. Residual cortical material was removed using the I/A handpiece. The posterior capsule was carefully polished to remove as much residual lens epithelial cells as safely possible. The capsular bag was then inflated and the anterior chamber deepened with viscoelastic. The lens implant described above was inserted into the capsular bag using the KYE [place] Injector. A Kuglen hook was used to dial the IOL into position. Residual viscoelastic was then removed first from posterior to the IOL, then from the anterior chamber using the I/A handpiece. The lens implant was noted to center nicely within the capsular bag. The incisions were stromally hydrated, and the anterior chamber was reformed using BSS. Then 0.5cc of moxifloxacin 1.0mg/ml were injected into the capsular bag and anterior chamber. The incisions were checked with a Weck spear and found to be secure. Several drops of ophthalmic povidone-iodine 5% were then applied to the eye followed by two drops of Imprimis combination prednisolone/moxifloxacin/nepafenac solution. The drapes were removed and a clear plastic protective eye shield was placed over the eye. The patient was then returned to Same Day Surgery in stable condition.
[2020-06-06 12:22] VITALS: BP 137/68; PULSE 71; RESP 16; TEMP 35.1; O2SAT 96
== END 2020-06-06 12:22 | disposition home or self-care (01) ==
PROVIDERS: PCP Family Medicine; Visit Provider Ophthalmology
PROC: (CPT 66984; principal; 2020-06-06 12:30)
DX: H25.11 Age-related nuclear cataract, right eye (principal); Z96.1 Presence of intraocular lens; Z98.42 Cataract extraction status, left eye; I10 Essential (primary) hypertension
CPT/HCPCS: 66984; V2632

== ENCOUNTER 2020-06-07 07:18 | Outpatient (CLI) | payer BC, SELFPAY ==
[2020-06-11 03:23] LABS: COVID-19 RT-PCR Result NEGATIVE (Negative)
== END 2020-06-07 07:38 ==
PROVIDERS: PCP Family Medicine; Visit Provider Student in an Organized Health Care Education/Training Program
DX: M16.0 Bilateral primary osteoarthritis of hip (principal); Z01.818 Encounter for other preprocedural examination
CPT/HCPCS: U0003

== ENCOUNTER 2020-06-11 06:04 | Inpatient (IN) | payer BC, MEDICARE, SELFPAY ==
[2020-06-11] VITALS (18 sets, daily range): BP systolic 70–131; BP diastolic 36–74; PULSE 62–81; RESP 14–22; TEMP 35.5–36.8; O2SAT 95–99
[2020-06-11] MEDS: Celecoxib 200 MG CAP 400 MG PO (06:34)
[2020-06-11] MEDS: Acetaminophen 500 MG TAB 1000 MG PO ×2 (06:34→14:44)
[2020-06-11] MEDS: Lactated Ringers 1,000 ML 80 ML IV ×2 (06:35→11:34)
[2020-06-11] MEDS: ceFAZolin 2 GM/50 ML BAG IVPB (07:32)
--- NOTE | 2020-06-11 08:55 | DI.RAD_ITS ---
EXAM: XR HIP LT IN OR CLINICAL HISTORY: OSTEOARTHRITIS LEFT HIP. TECHNIQUE: 2D and realtime digital imaging was performed. COMPARISON: CR XR PELVIS AP from 05/08/2020 FINDINGS: Fluoroscopy was provided in the OR. Hard copy images show placement of a right hip prosthesis. The components appear well aligned Please see procedure note for details. Fluoro time: 33.3 sec RADIATION DOSE DELIVERED:
[2020-06-11] MEDS: Ketorolac 30 MG/ML VIAL (09:44)
[2020-06-11] MEDS: Bupivacaine 0.25% Pres-Free 30 ML VIAL (09:44)
--- NOTE | 2020-06-11 10:25 | DI.RAD_ITS ---
EXAM: XR HIP RT IN OR CLINICAL HISTORY: OSTEOARTHRITIS RIGHT HIP. TECHNIQUE: 2D and realtime digital imaging was performed. COMPARISON: No exams were available for comparison FINDINGS: Fluoroscopy was provided in the OR. Hard copy images show placement of a right hip prosthesis. Please see procedure note for details. Fluoro Time: 46.4 seconds RADIATION DOSE DELIVERED:
--- NOTE | 2020-06-11 10:59 | W.PM.DS.N ---
Date of service: 06/11/20 Time of Service: 15:15 DS: Diagnosis Discharge Diagnosis (1) Degenerative joint disease of right hip: Status: Chronic (2) Degenerative joint disease of left hip: Status: Chronic Discharge Plan Disposition Patient Disposition: HOME Condition: Good Discharge Details Reason For Visit: BILAT HIP Admit Date/Time: 06/11/20 06:04 Admit Provider: Raymond Hedrick Attending Provider: Raymond Hedrick Primary Care Provider: Kiera Ji [facility] Hospital Course: Patient was admitted to the medical/surgical floor following the procedure. The surgery was tolerated well without any notable medical, surgical, or anesthetic complications. Mobilization began postoperatively. The lynn catheter was removed and voiding spontaneously. Vitals were stable. Physical therapy worked with the patient and was cleared for discharge home. No acute medical issues. Pain was controlled on oral regimen. Home Meds and New Rx's Prescriptions: New celecoxib 200 mg capsule 200 mg PO BID PRN (Reason: pain) Qty: 60 RF: 1 acetaminophen 500 mg tablet 1,000 mg PO Q8H PRN (Reason: pain) Qty: 90 RF: 3 pantoprazole 40 mg tablet,delayed release (DR/EC) 40 mg PO DAILY Qty: 30 RF: 0 docusate sodium [Colace] 100 mg capsule 100 mg PO BID PRNQty: 10 RF: 0 tramadol 50 mg tablet 50 mg PO Q4H PRN PRNQty: 14 RF: 0 Continued alendronate 70 mg tablet 70 mg PO QWEEK Qty: 24 RF: 3 TheraTears 0.25 % drops 1 drp ophthalmic (eye) BID RF: 0 multivitamin [Daily Multi-Vitamin] 1 EACH tablet 1 ea PO DAILY RF: 0 calcium carbonate-vitamin D3 1 EACH tablet 1 ea PO DAILY RF: 0 vitamin B complex [B Complex-Vitamin B12] 1 EACH tablet 1 ea PO DAILY RF: 0 cholecalciferol (vitamin D3) 5,000 UNIT capsule 5,000 unit PO DAILY RF: 0 atorvastatin 10 mg tablet 10 mg PO QHS Qty: 90 RF: 4 magnesium 250 mg tablet 250 mg PO BID RF: 0 folic acid 1 MG tablet 1 mg PO DAILY RF: 0 methotrexate sodium 2.5 mg tablet 12.5 mg PO .WEEKLY RF: 0 losartan 100 mg tablet 100 mg PO HS RF: 0 Discontinued aspirin 325 MG tablet,delayed release (DR/EC) 325 mg PO DAILY RF: 0 Discharge Instructions Additional Instructions: Dr. Hedrick's Total Hip Discharge Instructions Activity: The most important activity is to walk. You should try to take short walks a few times a day. You have no restrictions on movement or positioning, but do not try to force what you do. You will find some stiffness and weakness with hip flexion (lifting your knee). Do not try to strengthen this too early, continue to practice walking and stairs and this will come. - Outpatient physical therapy can be helpful to help return you to a normal gait and improve your flexibility and strength. This can start around 2 weeks. For most patients, it?s not necessary. Usually this is determined at the time of discharge or at the first post-operative visit. - You should wear the LATONYA hose on both legs for 2 weeks. You may remove those at night. These prevent blood pooling and swelling. Dressing: Keep the surgical dressing in place for at least one week, although it may stay in place untill follow-up. It may get wet after 3 days but avoid soaking the dressing. If it gets wet, just lightly pat dry. Most people prefer to cover the dressing with some ClingWrap, Saran Wrap, to keep it dry. After the first week it may be removed if desired and then replaced with light gauze and tape or nothing. It is important to always keep some gauze or the dressing between skin folds, especially when you are sitting, so the incision is not folded over on itself at the belly fold. Medications: - You should take Tylenol and an anti-inflammatory Celebrex as your primary pain control medications - You have been prescribed a stronger pain medication Tramadol for breakthrough pain, take as needed as prescribed. This is a very light pain medication, and if it is not enough, please call Dr. Hedrick. - You have also been prescribed a stomach acid reduction agent Pantoprozole to help reduce stomach acid and reflux. - You will be taking Rivaroxaban 10mg daily for DVT prevention for 30 days. This is a stronger blood clot preventer given your surgery and history of DVT. - If you have constipation you should take Colace or Miralax (both [id number]). It takes most people 3-4 days to have a bowel movement. Follow-up: 2 weeks. If you have any acute concerns or questions, please do not hesitate to contact the office at [phone]. You may contact Dr. Hedrick with any questions after hours through the hospital at [phone] or on his cell phone at [phone]. Referrals: Raymond Hedrick MD [ [facility] STAFF PHYSICIAN] - 06/26/20 11:00 am Activity:: Activity as Tolerated Equipment/Supplies:: Walker Diet:: As Tolerated Discharge Orders Discharge Orders: Discharge Order (Routine); Ordered 06/11/20 Ordered By: Raymond Hedrick DS: Summary Status at Discharge Functional status at discharge: uses cane/walker Overall status at discharge: patient is progressing back to baseline Mental Status: mental status grossly normal Speech and Movement: speech and movement normal Mood: congruent mood Affect: normal affect Exam Psych Mental Status: mental status grossly normal Speech and Movement: speech and movement normal Mood: congruent mood Affect: normal affect DS: Data Vitals/I&O Vitals and I&O: Vital Signs Temperature 36.3 C L 06/11/20 06:18 Pulse 77 06/11/20 06:18 Pulse Rhythm Regular 06/11/20 06:18 Respiratory Rate 18 06/11/20 06:18 Blood Pressure 131/74 06/11/20 06:18 Pulse Oximetry 97 06/11/20 06:18 Oxygen Delivery Method Room Air 06/11/20 06:18 Oxygen Flow Rate 0 06/11/20 06:18 Intake & Output 06/10/20 06/10/20 06/11/20 11:59 23:59 11:59 Intake Total 970 / 970 Output Total 550 / 550 Balance 420 / 420 Weight 67.3 kg Intake: IV 970 / 970 Output: Urine 200 / 200 Estimated Blood Loss 350 / 350 Other: Urine Color Yellow Urine Appearance Cloudy [facility] Medical History Cough due to JONNY inhibitor (Resolved) 10/24/17 Degenerative joint disease of left hip (Chronic) Degenerative joint disease of right hip (Chronic) Disturbance of skin sensation (Resolved) Diverticulosis (Chronic) DVT of lower extremity (deep venous thrombosis) (Resolved) 08/29/17 Family history of diabetes mellitus (Chronic) Hyperlipidemia (Chronic) Hypertension (Chronic) Impacted cerumen of both ears (Inactive) Lumbar stenosis with neurogenic claudication (Chronic 05/03/17) Osteopenia (Chronic) Overweight (Resolved) Overweight (Inactive) Pain in posterior left lower extremity (Resolved) 07/06/17 Pain in right shoulder (Chronic) Polymyalgia rheumatica (Chronic) 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 MEJIA 10/31/17 B/L; DR. MEJIA Pyoderma and Abcesses Sinus Endoscopy resulting in all teeth being pulled VAGINAL 1965 1967 1972 Family History Mother , age 57 Diabetes Heart disease Hyperlipidemia Stroke Sister Diabetes Heart disease Hyperlipidemia Breast cancer Sister Diabetes Breast cancer Heart disease Hyperlipidemia Brother Diabetes Myocardial infarction Lozano's lung Heart disease Hypertension Brother Diabetes Myocardial infarction Heart disease Hyperlipidemia Maternal Aunt Breast cancer FAMILY HISTORY Essential hypertension Father , age 82 Heart disease Myocardial infarction Diabetes Stroke Son No problems noted. Son No problems noted. Daughter No problems noted. Social History Smoking/Tobacco Use Status: Never Alcohol Intake: never Drug use: Never Substance use type: does not use Caregiver/Support person: Yes Household members: spouse Do you need help understanding health information?: Often Pets and animals: Yes Pets and animals: dog(s) Sexually active: No Current gender identity: female What is your relationship status?: How often do you talk on the phone with friends or family?: twice per week How often do you get together with friends or relatives?: decline to answer How often do you attend mormon or religion services?: decline to answer Do you belong to any clubs or organized social groups?: yes Panel score (0-1 are the most socially isolated patients): 2 What type of physical activity do you participate in: decline to answer Duration: decline to answer Frequency: decline to answer Pooja/Buddhist: No preference Special pooja needs: No Seatbelt use: always Helmet use: Yes Helmet use: always Drive intox or ride w/intox route driver coin machines: No Do you feel safe at home: Yes Do you feel safe in your relationship?: Yes
[2020-06-11] MEDS: Phenylephrine 800 MCG/10 ML SYR 160 MCG IVP (11:40)
--- NOTE | 2020-06-11 13:45 | PT.INIE ---
Date of service: 06/11/20 Time of Service: 13:45 PT Notes Visit Reasons: BILAT HIP Physical Therapy Inpatient Initial Evaluation Date: 06/11/2020 Referring Doctor: Raymond Hedrick MD PT Orders: PT CONSULT: Status post Ortho surgery. Status post bilateral SWATHI. Precautions: Fall. Standard. WBAT on BLE. Patient Profile/Admitting Diagnosis: Jayda is a 74-year-old female with degenerative joint disease of B hip status post bilateral total hip arthroplasty on postoperative day 0. PMHX: Medical History (Updated 05/30/20 @ 10:35 by Brionna Hoffman) Cough due to JONNY inhibitor (Resolved) 10/24/17 Degenerative joint disease of left hip (Chronic) Degenerative joint disease of right hip (Chronic) Disturbance of skin sensation (Resolved) Diverticulosis (Chronic) DVT of lower extremity (deep venous thrombosis) (Resolved) 08/29/17 Family history of diabetes mellitus (Chronic) Hyperlipidemia (Chronic) Hypertension (Chronic) Impacted cerumen of both ears (Inactive) Lumbar stenosis with neurogenic claudication (Chronic 05/03/17) Osteopenia (Chronic) Overweight (Resolved) Overweight (Inactive) Pain in posterior left lower extremity (Resolved) 07/06/17 Pain in right shoulder (Chronic) Polymyalgia rheumatica (Chronic) 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 MEJIA 10/31/17 B/L; DR. MEJIA Pyoderma and Abcesses Sinus Endoscopy resulting in all teeth being pulled VAGINAL 1965 1967 1972 Social History/Home Situation: Lives with in private home with 2 steps to enter. Independent with all ADLs prior to surgery without assistive ambulatory device nor adaptive equipment. Worked at the [email or web address] for over 20 years. Has very good family support. Equipment Owned/DME: 4-wheeled walker Subjective: Patient reports 1?2/10 pain in bilateral hips which she describes as a pulling sensation especially with ambulation and stair negotiation. She denies headache, chest pain, and dizziness throughout session. She stated that she has been having injections to bilateral hip but has been having difficulty with weightbearing and mobility ADL performance for the past couple of years bbut she decided to have surgery to both hips. Objective: General Observation: Mepilex Ag over surgical incisions. Simon catheter in place. IV in the right UE. Mental Status: Alert and oriented x4 Pain: 1?2/10 in B hips ROM: Right Upper Extremity: Shoulder Flexion WFL. Shoulder abduction WFL. Elbow flexion WFL. Wrist flexion WFL. Opening and closing of hand WFL. Left Upper Extremity: Shoulder Flexion WFL. Shoulder abduction WFL. Elbow flexion WFL. Wrist flexion WFL. Opening and closing of hand WFL. Right Lower Extremity: Hip flexion WFL. Hip abduction WFL. Knee flexion WFL. Ankle dorsiflexion WFL. Ankle plantarflexion WFL. Left Lower Extremity: Hip flexion WFL. Hip abduction WFL. Knee flexion WFL. Ankle dorsiflexion WFL. Ankle plantarflexion WFL. Strength: Right Upper Extremity: Shoulder flexors 5/5. Shoulder abductors 5/5. Elbow flexors 5/5. Elbow extensors 5/5. Blood Bank Coordinator strong. Left Upper Extremity: Shoulder flexors 5/5. Shoulder abductors 5/5. Elbow flexors 5/5. Elbow extensors 5/5. Blood Bank Coordinator strong. Right Lower Extremity: Hip flexors 4/5. Hip abductors 4/5. Knee flexors 4/5. Knee extensors 4/5. Ankle dorsiflexors 5/5. Ankle plantarflexors 5/5. Left Lower Extremity:Hip flexors 4/5. Hip abductors 4/5. Knee flexors 4/5. Knee extensors 4/5. Ankle dorsiflexors 5/5. Ankle plantarflexors 5/5. Sensation: Intact as to pain and pressure on bilateral lower extremities. Denies numbness and tingling from hips down the feet. Bed Mobility/Transfers: Rolling supervision Supine to sit supervision Sit to supine supervision Sit to stand standby assist Stand to sit standby assist Bed to chair standby assist Chair to bed standby assist Gait: 50 feet x 2 using front wheeled walker with a step through gait pattern requiring IV pole management and contact-guard assist of PT. Patient appeared hesitant with each leg advancement at the start but was able to feel more comfortable during her second trip back from the therapy room to her room. Patient also tolerated up-and-down six 4-inch steps and four 6-inch steps while holding onto bilateral rails requiring standby assist with step to gait pattern.No increase in pain reported. No dizziness, headache, and chest pain reported. THERA EX: Patient tolerated seated level exercises consisting of LA cues x10, hip flexion x10, and ankle pumping x 10 as well asked standing level exercises consisting of bilateral heel raises x10, high marches x10, and partial knee bends x10 without undue difficulty and shortness of breath. Balance: Static Sitting: Normal Dynamic Sitting: Normal Static Standing: Fair Dynamic Standing: Fair Special Tests: Mobility Limitations Standardized Measure [facility] AM-PAC 6 clicks Basic Mobility Inpatient Short Form: Raw Score: 22 CMS Score: 21% deficit Informed Consent/Education: Patient instructed in purpose of PT consult and plan of care. Assessment: Wood demonstrates functional mobility decline requiring the use of walker for all mobility ADL performance, limited activity tolerance, difficulty with walking, and impairment with balance resulting from postoperative status. Jayda is a 74-year-old female with degenerative joint disease of B hip status post bilateral total hip arthroplasty on postoperative day 0. Patient presents with clinical signs and symptoms consistent with current/admitting diagnoses that have resulted to mobility limitations, gait instability, generalized weakness, and impairment of motor control as demonstrated by the following impairment level findings: 1. Decreased strength to B hips/knees major muscle groups 2. Impaired sitting/standing balance 3. Impaired activity tolerance Impairments are contributing to the following functional limitations: 1. Inability to safely ambulate without assistive device and physical assistance 2. Increase completion time for mobility ADL performance 3. Increased fall risk 4. Inability to negotiate steps alone safely Patient is assessed as a 55427 moderate complexity based on the following: History: 74 [id number] with impairment level findings, functional limitations, and past medical history as indicated above Examination: Demonstrable impairment in strength, balance, and mobility level with underlying impairments and functional limitations as documented above Presentation:Evolving Decision Makin moderate complexity Goals: N/A. PT consult only. Plan of Care/Treatment Plan: N/A. PT consult only. DISCHARGE RECOMMENDATIONS: May discharge to home once medically cleared by orthopedic surgeon. Outpatient PT services to facilitate return to premorbid independent level. TREATMENT CODE/TIME: 74253 x 20 minutes, 48429 x 25 minutes, and 7110 x 10 minutes beginning at 13:45 PM. Thank you for the opportunity to participate in the care of this patient. Sonia Borrego PT, DPT, CLT [facility] [place], [place]
[2020-06-11] MEDS: ceFAZolin 1 GM/50 ML BAG IVPB (14:45)
--- NOTE | 2020-06-11 16:06 | ROE_ITS ---
Date of service: 06/11/20 Time of Service: 10:51 Operative Note Operative Note DATE OF PROCEDURE: 06/11/20 PRE-OP DIAGNOSIS: Bilateral Hip Osteoarthritis POST-OP DIAGNOSIS: same PROCEDURE: Bilateral Anterior Total Hip Arthroplasty SURGEON: Raymond Hedrick [employer] SET UP OPERATOR: Brionna Hoffmna ANESTHESIA: spinal ESTIMATED BLOOD LOSS: 350 PATHOLOGY: none sent COMPLICATIONS: None Patient was transported to: PACU Patient's condition: stable Implants: RIGHT: 1. Depuy Redrock Acetabular Component, 50 mm 2. Depuy Acetabular Liner, [id number] 3. Depuy Corail coxa vara femoral Stem, Size 12 4. Depuy Altrx Ceramic Femoral Head, Size 32+9mm LEFT: 1. Depuy Redrock Acetabular Component, 50mm 2. Depuy Acetabular Liner, [id number] 3. Depuy Corail High Offset Femoral Stem, Size 12 4. Depuy Altrx Ceramic Femoral Head, Size 32+5mm Indications: I have seen Shona in clinic for symptoms of hip arthritis, confirmed with radiographic findings. Shona has exhausted nonoperative methods and was having significant limitations in daily function and desired better function and less pain. I discussed the technical details of a hip replacement. I explained the risks of the procedure to include, but not limited to, bleeding, infection, pain, stiffness, fracture, damage to nerves and vessels, damage to muscles and tendons, loosening, instability, leg length inequality, need for repeat procedure, blood clot and cardiopulmonary demise. Despite these risks, Shona elected to proceed. Findings: There was significant signs of arthritis throughout both hips. Procedure Description: Shona was greeted in the preoperative holding area where the correct side was identified and marked. The consent was reviewed with the patient and signed. The history and physical was updated. All questions were answered. Shona was taken back to the operating room. A spinal anesthestic was then administered. The patient was placed into the supine position on the operating room table. The patient was then positioned onto the ARCH table. Both feet were wrapped with Webrill cotton wrap along with Coban. LEFT Side The feet were placed in specialized boots for the ARCH table, well seated within the boot and secured. SCDs were applied. The patient was then slid down onto a peroneal post and the nonoperative leg was secured in a leg tse attached to the table. The operative side was placed into the ARCH table attachment and bed height and positioning was secured. A preoperative AP pelvis was obtained to serve as a reference for determining leg lengths. Prophylactic antibiotics in the form of Cefazolin were administered. 1g of Tranxemic Acid was given intravenously within 30 minutes of incision. The left leg was then prepped with Chloraprep and draped in a standard fashion. A second prep with Chloraprep was performed prior to placement of a shower-curtain type drape with Iodine impregnated skin protection. A timeout to confirm correct identity, side and site, procedure, allergies, anesthesia, and medical concerns was performed. An obliquely oriented incision was made starting lateral to the ASIS and running distal over the Tensor Fascia Rebecca (TFL) muscle belly toward the fibular head, approximately 10cm. The skin and soft tissue was dissected sharply, through Khari?s fascia, and to the fascia of the TFL. With the fascia and superior border of the IT band identified, the fascia was incised with a new knife just above any perforators from the IT band. The TFL muscle belly was bluntly dissected away from the fascia and moved laterally. The fat between TFL and rectus was identified to ensure the dissection was not within the TFL. Blunt dissection created space between abductors and the capsule and retractor was placed over the lateral femoral neck. The fibers of the rectus femoris tendon were identified and these were freed from the anterior capsule. A second cobra retractor was placed around the medial femoral neck. The TFL was further retracted laterally to show the deep fascia. Careful dissection through this layer identified three main crossing vessels of the lateral femoral circumflex. These were cauterized in multiple locations and then cut without any noticeable bleeding. The TFL was further released bluntly from the deep fascia to expose anterior hip capsule and fat The Eduardo orthopaedic retractor was then placed beneath the TFL and against sartorius and medial soft tissues to protect and retract the soft tissues. A T-capsulotomy was then performed starting at the superior lateral acetabulum and moving distally to the intertrochanteric ridge. These capsular flaps were tagged with a No. 1 Ethibond and elevated from within. The capsular flaps were released to the shoulder of the lateral neck and to the lesser trochanter to give excellent visualization of the proximal femur. A neck osteotomy was performed using an oscillating saw based on preoperative templates. This cut started in the shoulder and of the lateral neck and exited medially. The saw was at all times directed medially to avoid injury to the greater trochanter. 6cm of traction was applied to the leg and the osteotomy opened. The femoral head was removed with a corkscrew, making sure to protect the TFL on its exit. This was measured on the back table to determing the starting reamer size. Portions of the rectus obscuring visualization were minimally elevated off the superior acetabulum. An anterior retractor was placed over the anterior wall between capsule and labrum and attached to the Gripper retraction system. A posterior retractor was placed similarly. This provided excellent visualization. The contents of the cotyloid fossa were removed with electrocautery and the labrum was removed with a knife. There was a notable floor osteophyte. Acetabular reaming began with a 46mm reamer. This first reaming was directed anterior to posterior and medial to get down to the true floor. This was i nspected and reamed until the true floor was reached. The anterior retractor was then released and entry and exit was provided by traction on the capsular flaps. I then reamed sequentially up to a 50mm reamer where good fit was obtained. The larger reamers were oriented based on anatomical reference of the anterior and lateral torres to ensure proper abduction and anteversion. Positioning and size was confirmed with the fluoroscopy. A 50mm Depuy Redrock acetabular component was selected. The acetabulum was reamed around the periphery with the selected acetabular size to prevent a rim fit. The deep tissues were irrigated. The acetabular component was then impacted in a position of about 40-45 degrees of abduction and 15-20 degrees of anteversion, using the patient?s anatomy as the ultimate landmark. Fluoroscopy was used to confirm this. There was excellent annealing furnace operator of the acetabular component and the inserting handle was removed. A primary acetabular screw was placed into the ilium by drilling through one of the holes in the acetabular component. This was measured and an approrpriately sized screw was placed with excellent purchase. It was checked not to be proud. The acetabular liner, Depuy [id number] polyethylene liner, was inserted and lined up with the tines of the acetabular component. There was no soft tissue interposition. The liner was then impacted into position and confirmed to be well-seated. A portion of the joseline-articular cocktail was then injected around the acetabulum into the capsule and periosteum. This cocktail consisted of 50cc of 0.25% Bupivicaine and 20cc of Exparel, expanded to a total of 120cc. Traction was released from the femur. The leg was rotated to 120 degrees. Any remaining medial capsule was released until the lesser trochanter was easily palpable. A Quintanilla retractor was placed medially. The lateral capsule was further released into the shoulder to allow access to the greater trochanter. A Quintanilla retractor was placed over the greater trochanter which allowed the trochanter to flip in front of the capsule for excellent exposure. The leg was brought down into maximal extension and 20 degrees of adduction while ensuring there was no impingement on the acetabulum. Any remnant capsule within the trochanter was released. Piriformis and obturator externis were identified and protected. There was excellent access to the proximal femur. The lateral neck remnant was removed with a rongeur. A blunt canal probe was used to identify the canal and trajectory for later broaching. A box osteotome initiated the broach course. A small curved rasp and a curved curette were used to work laterally. Broaching then began with a size 8 Corail broach. This was inserted manually around the trochanter and into the canal before mallet blows. The broach was seated to a few millimeters below the cut level based on the neck cut and the preoperative template. Sequential broaching was continued with the Gini [employer] Jonyse pneumatic broaching device until a tight fit was obtained with good rotational control of the femur. A trial standard 125 neck was inserted along with a +5 trial head. The leg was brought out of extension and adduction and then reduced with traction and internal rotation. The leg was only partially stable anteriorly in a position of 30 degrees of extension and 90 degrees of external rotation. So I changed the neck option to a high offset to add leg length and offset. Fluoroscopy was used to ensure there was no fracture and the stem was seated well. Leg lengths were checked with an AP pelvis and pelvic reference points. ThisNext navigation system was used to confirm appropriate positioning and leg length and offset. Once content with the desired offset and leg lengths, the leg was brought back into extension, external rotation and adduction. These values were used to match for the right side to follow. The periosteum and surrounding tissue was injected with remaining portion of the joseline-articular cocktail. The proximal femur was irrigated as well as the deep tissues. The Depuy Corail High Offset stem, size 12, was then manually inserted into the proximal femur making sure to control rotation. It was then malleted into position with light blows, giving breaks to allow bone expansion and decrease risk of fracture. The selected Depuy Altrx Ceramic Head, size 32+5mm, was then placed onto the clean and dry trunnion and secured with impaction onto the tapered fit. The leg was brought back out of extension and adduction and reduced with traction and internal rotation. Stability was confirmed with no shuck at 90 degrees of external rotation and 30 degrees of extension. No impingement through range of motion arc. Final x-ray images were obtained with fluoroscopy to confirm adequate positioning and no intraoperative fracture. The deep tissues were thoroughly irrigated with Irrisept chlorhexadine solution. The capsule was then reapproximated with the previously placed Ethibond sutures. The TFL fascia was finally closed with a No. 2 Stratafix, barbed suture. Deep tissues were then reapproximated with 0 Vicryl and a running 2-0 Vicryl. The skin was closed with a running 4-0 Monocryl in a subcuticular fashion. This was reinforced with skin glue. A Mepilex silver dressing was applied. RIGHT Side Keeping the back table sterile, the drapes were removed, light handles changed, and fluoroscopy switched rooms sides. The arch table was disconnected and the legs were placed back onto the bed extension. The boots were switched, placing the operative side into ARCH table attachment and the other boot into the well leg tse. A preoperative AP pelvis was obtained to serve as a reference for determining leg lengths. The right leg was then prepped with Chloraprep and draped in a standard fashion. A second prep with Chloraprep was performed prior to placement of a shower-curtain type drape with Iodine impregnated skin protection. A timeout was once again performed to ensure that there were no issues to proceed. The second dose of TXA 1g was administered intravenously. An obliquely oriented incision was made starting lateral to the ASIS and running distal over the Tensor Fascia Rebecca (TFL) muscle belly toward the fibular head, approximately 10cm. The skin and soft tissue was dissected sharply, through Khari?s fascia, and to the fascia of the TFL. With the fascia and superior border of the IT band identified, the fascia was incised with a new knife just above any perforators from the IT band. The TFL muscle belly was bluntly dissected away from the fascia and moved laterally. The fat between TFL and rectus was identified to ensure the dissection was not within the TFL. Blunt dissection created space between abductors and the capsule and retractor was placed over the lateral femoral neck. The fibers of the rectus femoris tendon were identified and these were freed from the anterior capsule. A second cobra retractor was placed around the medial femoral neck. The TFL was further retracted laterally to show the deep fascia. Careful dissection through this layer identified three main crossing vessels of the lateral femoral circumflex. These were cauterized in multiple locations and then cut without any noticeable bleeding. The TFL was further released bluntly from the deep fascia to expose anterior hip capsule and fat The Eduardo orthopaedic retractor was then placed beneath the TFL and against sartorius and medial soft tissues to protect and retract the soft tissues. A T-capsulotomy was then performed starting at the superior lateral acetabulum and moving distally to the intertrochanteric ridge. These capsular flaps were tagged with a No. 1 Ethibond and elevated from within. The capsular flaps were released to the shoulder of the lateral neck and to the lesser trochanter to give excellent visualization of the proximal femur. A neck osteotomy was performed using an oscillating saw based on preoperative templates. This cut started in the shoulder and of the lateral neck and exited medially. The saw was at all times directed medially to avoid injury to the greater trochanter. 6cm of traction was applied to the leg and the osteotomy opened. The femoral head was removed with a corkscrew, making sure to protect the TFL on its exit. This was measured on the back table to determing the starting reamer size. Portions of the rectus obscuring visualization were minimally elevated off the superior acetabulum. An anterior retractor was placed over the anterior wall between capsule and labrum and attached to the Gripper retraction system. A posterior retractor was placed similarly. This provided excellent visualization. The contents of the cotyloid fossa were removed with electrocautery and the labrum was removed with a knife. There was a notable floor osteophyte. There was significant chondromalacia of the superior acetabulum. Acetabular reaming began with a 46mm reamer. This first reaming was directed anterior to posterior and medial to get down to the true floor. This was inspected and reamed until the true floor was reached. The anterior retractor was then released and entry and exit was provided by traction on the capsular flaps. I then reamed sequentially up to a 49mm reamer where good fit was obtained. The larger reamers were oriented based on anatomical reference of the anterior and lateral torres to ensure proper abduction and anteversion. Positioning and size was confirmed with the fluoroscopy. A 50mm Depuy Redrock acetabular component was selected. The acetabulum was reamed around the periphery with the selected acetabular size to prevent a rim fit. The deep tissues were irrigated. The acetabular component was then impacted in a position of about 40-45 degrees of abduction and 15-20 degrees of anteversion, using the patient?s anatomy as the ultimate landmark. Fluoroscopy was used to confirm this. There was excellent annealing furnace operator of the acetabular component and the inserting handle was removed. The acetabular liner, Depuy [id number] polyethylene liner, was inserted and lined up with the tines of the acetabular component. There was no soft tissue interposition. The liner was then impacted into position and confirmed to be well-seated. A portion of the joseline-articular cocktail was then injected around the acetabulum into the capsule and periosteum. This cocktail consisted of 50cc of 0.25% Bupivicaine and 20cc of Exparel, expanded to a total of 120cc. Traction was released from the femur. The leg was rotated to 120 degrees. Any remaining medial capsule was released until the lesser trochanter was easily palpable. A Quintanilla retractor was placed medially. The lateral capsule was fur ther released into the shoulder to allow access to the greater trochanter. A Quinatnilla retractor was placed over the greater trochanter which allowed the trochanter to flip in front of the capsule for excellent exposure. The leg was brought down into maximal extension and 20 degrees of adduction while ensuring there was no impingement on the acetabulum. Any remnant capsule within the trochanter was released. Piriformis and obturator externis were identified and protected. There was excellent access to the proximal femur. The lateral neck remnant was removed with a rongeur. A blunt canal probe was used to identify the canal and trajectory for later broaching. A box osteotome initiated the broach course. A small curved rasp and a curved curette were used to work laterally. Broaching then began with a size 8 Corail broach. This was inserted manually around the trochanter and into the canal before mallet blows. The broach was seated to a few millimeters below the cut level based on the neck cut and the preoperative template. Sequential broaching was continued with the Gini & Jonyse pneumatic broaching device until a tight fit was obtained with good rotational control of the femur. A trial Cox[place]ara neck was inserted along with a +5 trial head. The leg was brought out of extension and adduction and then reduced with traction and internal rotation. The leg was stable anteriorly in a position of 30 degrees of extension and 90 degrees of external rotation. Fluoroscopy was used to ensure there was no fracture and the stem was seated well. Leg lengths were checked with an AP pelvis and pelvic reference points. ThisNext navigation system was used to confirm appropriate positioning and leg length and offset. +9 head would better match this side to the other. Once content with the desired offset and leg lengths, the leg was brought back into extension, external rotation and adduction. The periosteum and surrounding tissue was injected with remaining portion of the joseline-articular cocktail. The proximal femur was irrigated as well as the deep tissues. The Depuy Corail Cox[place] stem, size 12, was then manually inserted into the proximal femur making sure to control rotation. It was then malleted into position with light blows, giving breaks to allow bone expansion and decrease risk of fracture. The selected Depuy Altrx Ceramic Head, size 32+9mm, was then placed onto the clean and dry trunnion and secured with impaction onto the tapered fit. The leg was brought back out of extension and adduction and reduced with traction and internal rotation. Stability was confirmed with no shuck at 90 degrees of external rotation and 30 degrees of extension. No impingement through range of motion arc. Final x-ray images were obtained with fluoroscopy to confirm adequate positioning and no intraoperative fracture. The deep tissues were thoroughly irrigated with Irrisept chlorhexadine solution. The capsule was then reapproximated with the previously placed Ethibond sutures. The TFL fascia was finally closed with a No. 2 Stratafix, barbed suture. Deep tissues were then reapproximated with 0 Vicryl and a running 2-0 Vicryl. The skin was closed with a running 4-0 Monocryl in a subcuticular fashion. This was reinforced with skin glue. A Mepilex silver dressing was applied. At the end of the case, all counts were correct. Shona was transferred to the hospital bed without difficulty and suffering no apparent complication. Shona has a good prognosis. Physical therapy will start today and without restrictions, weight-bearing as tolerated. Rivaroxaban 10mg daily will be used for DVT prophylaxis.
== END 2020-06-11 16:35 | disposition home or self-care (01) | DRG 462 ==
LOC: PDS 11:02 → MS 11:17
PROVIDERS: Admitting Provider Student in an Organized Health Care Education/Training Program; PCP Family Medicine; Visit Provider Student in an Organized Health Care Education/Training Program
PROC: 0SR90JZ Replacement of Right Hip Joint with Synthetic Substitute, Open Approach (ICD-10-PCS; CPT 27130; principal; 2020-06-11 07:30)
DX: M16.11 Unilateral primary osteoarthritis, right hip (principal); M16.12 Unilateral primary osteoarthritis, left hip; M25.551 Pain in right hip; M25.552 Pain in left hip; Z96.641 Presence of right artificial hip joint; Z96.642 Presence of left artificial hip joint; Z86.718 Personal history of other venous thrombosis and embolism; Z79.82 Long term (current) use of aspirin; I10 Essential (primary) hypertension
CPT/HCPCS: 27130; 97110; 97162; 97530; NC; 73501; J0171; J0690; J1885; J2001; J2250; J2370; J2405; J3010

== ENCOUNTER 2020-06-20 15:04 | Outpatient (CLI) | payer BC, MEDICARE, SELFPAY ==
--- NOTE | 2020-06-20 11:30 | DI.US_ITS ---
EXAM: US EXTREMITY VENOUS BI CLINICAL HISTORY: LLE swelling, pain, h/o bilateral SWATHI, I82.409, M79.605, ? DVT. TECHNIQUE: Ultrasound performed using standard protocol. COMPARISON: US LEFT EXTREMITY ULTRASOUND from 12/26/2017 FINDINGS: Duplex venous ultrasound was performed according to the usual protocol. The deep veins are freely com pressible throughout and there is normal flow augmentation with manual calf compression. 2D and Doppl er evaluation are unremarkable. IMPRESSION: No evidence of deep venous thrombosis of the right or left lower extremity DATA REPOSITORY:
== END 2020-06-20 15:24 ==
PROVIDERS: PCP Family Medicine; Visit Provider Student in an Organized Health Care Education/Training Program
DX: R60.0 Localized edema (principal); M79.605 Pain in left leg
CPT/HCPCS: 93970

== ENCOUNTER 2020-06-26 09:31 | Outpatient (CLI) | payer BC, SELFPAY ==
--- NOTE | 2020-06-26 11:00 | DI.RAD_ITS ---
EXAM: XR HIP PELVIS ADULT BL CLINICAL HISTORY: s/p SWATHI TECHNIQUE: COMPARISON: CR XR PELVIS AP from 05/08/2020 FINDINGS: Three views were obtained. There are hip prostheses in position bilaterally. The components appear well seated bilaterally. There is mild sclerosis at the pubic symphysis. No other significant bony abnormality seen. IMPRESSION:
== END 2020-06-26 09:51 ==
PROVIDERS: PCP Family Medicine; Visit Provider Physician Assistant
DX: Z96.643 Presence of artificial hip joint, bilateral (principal)
CPT/HCPCS: 73521

== ENCOUNTER 2020-07-30 11:49 | Outpatient (CLI) | payer BC, SELFPAY ==
--- NOTE | 2020-07-30 15:35 | DI.MAMMO_ITS ---
EXAM: MAMMO SCREENING CLINICAL HISTORY: screening,Z12.39 TECHNIQUE: Mammograms were interpreted according to the usual protocol including computer analysis w [employer] CAD system, tomosynthesis and C-view imaging. COMPARISON: FINDINGS: The breasts are of moderate density with fairly symmetrical distribution of fibroglandular tissue. N o dominant mass or clumped microcalcification is identified in either breast. Current examination is compared with previous examinations including June 2018 and there has been no gross interval colon e appearance in comparison with previous studies. IMPRESSION: No specific evidence of malignancy at this time. Routine screening examinations are suggested at yea rly intervals due to the family history of breast carcinoma. BI-RADS Category 1 - Negative Breast Density - Category B - Scattered areas of fibroglandular density
== END 2020-07-30 12:09 ==
PROVIDERS: PCP Family Medicine; Visit Provider Family Medicine
DX: Z12.31 Encounter for screening mammogram for malignant neoplasm of breast (principal); R92.2 Inconclusive mammogram; Z80.3 Family history of malignant neoplasm of breast
CPT/HCPCS: 77063; 77067

== ENCOUNTER 2021-06-11 11:03 | Outpatient (CLI) | payer BC, SELFPAY ==
--- NOTE | 2021-06-11 09:15 | DI.RAD_ITS ---
Exam(s) XR HIP RT COMPLETE AP PELVIS EXAM: XR HIP RT COMPLETE AP PELVIS CLINICAL HISTORY: 1 year fu. TECHNIQUE: 2D digital imaging was performed. COMPARISON: CR XR HIP PELVIS ADULT BL from 06/26/2020 FINDINGS: Compared to June 2020 there are bilateral hip prostheses again noted. The left hip acetabular cup is again noted be supported by a singular vertical screw. Appearance prostheses unchanged. No fract ures or loosening. There is no radiographic evidence of osteomyelitis. 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 IMPRESSION: DATA REPOSITORY: RADIATION DOSE DELIVERED:
--- NOTE | 2021-06-11 09:15 | DI.RAD_ITS ---
Exam(s) XR HIP LT 1V EXAM: XR HIP LT 1V CLINICAL HISTORY: follow up. TECHNIQUE: 2D digital imaging was performed. COMPARISON: CR XR HIP PELVIS ADULT BL from 06/26/2020 CR XR HIP RT COMPLETE AP PELVIS from 06/11/2021 FINDINGS: Left hip prostheses components appears satisfactory position alignment. No fracture or loosening mitch dent. No significant change compared to June 2020. IMPRESSION: DATA REPOSITORY: RADIATION DOSE DELIVERED:
== END 2021-06-11 11:04 | disposition home or self-care (01) ==
LOC: DIORS 11:03
PROVIDERS: PCP Family Medicine; Referring Provider Family Medicine; Visit Provider Physician Assistant Surgical
DX: M86.68 Other chronic osteomyelitis, other site; Z96.643 Presence of artificial hip joint, bilateral
CPT/HCPCS: 73501; 73502

== ENCOUNTER 2021-08-11 04:29 | Outpatient (CLI) | payer BC, SELFPAY ==
[2021-08-11 10:33] LABS: ALT 26 U/L (14-59); AST 23 U/L (15-37); Albumin 3.9 g/dL (3.4-5.0); Alkaline Phosphatase 76 U/L (46-116); Anion Gap 9.2 mmol/L (3-11); BUN 20 mg/dL (7-18); Bilirubin, Total 0.9 mg/dL (0.2-1.0); CO2 26.8 mmol/L (21.0-32.0); CREATININE 1.1 mg/dL (0.55-1.02); Calcium 9.1 mg/dL (8.5-10.1); Calculated LDL 146 mg/dL (<100); Chloride 106 mmol/L (98-107); Cholesterol 217 mg/dL (<200); Estimated GFR 48.29 (mL/min/1.73m2); Glucose 88 mg/dL (74-106); HDL Cholesterol 51 mg/dL (40-60); Potassium 4.1 mmol/L (3.5-5.1); Sodium 142 mmol/L (136-145); Total Protein 6.6 g/dL (6.4-8.2); Triglyceride 100 mg/dL (<150)
== END 2021-08-11 04:30 | disposition home or self-care (01) ==
LOC: LBO 04:29
PROVIDERS: PCP Family Medicine; Visit Provider Family Medicine
DX: I10 Essential (primary) hypertension (principal); E78.2 Mixed hyperlipidemia
CPT/HCPCS: 36415; 80053; 80061

== ENCOUNTER 2021-10-13 21:30 | Emergency (ER) | payer BC, SELFPAY ==
[2021-10-13 21:34] VITALS: BP 159/67; PULSE 76; RESP 18; TEMP 36.4; O2SAT 98
--- NOTE | 2021-10-13 22:02 | W.ED.GENAD ---
Discharge Plan Disposition Patient Disposition: HOME Condition: Stable Discharge Details Clinical Impression: Edema, peripheral Primary Care Provider: Kiera Ji ED Provider: Julianna Flores Home Meds and New Rx's Prescriptions: Continued TheraTears 0.25 % drops 1 drp ophthalmic (eye) BID RF: 0 folic acid 1 mg tablet 1 mg PO DAILY Qty: 90 RF: 4 hydrochlorothiazide 12.5 mg tablet 12.5 mg PO QAM Qty: 90 RF: 4 losartan 100 mg tablet 100 mg PO HS Qty: 90 RF: 4 oxybutynin chloride 10 mg tablet extended release 24hr 10 mg PO DAILY Qty: 90 RF: 12 atorvastatin 10 mg tablet 10 mg PO QHS Qty: 90 RF: 4 Hold Instructions: Home Medication placed on hold at Doctor's office methotrexate sodium 2.5 mg tablet 10 mg PO .WEEKLY Qty: 75 RF: 5 multivitamin [Daily Multi-Vitamin] 1 EACH tablet 1 ea PO DAILY RF: 0 calcium carbonate-vitamin D3 1 EACH tablet 1 ea PO DAILY RF: 0 cholecalciferol (vitamin D3) 5,000 UNIT capsule 5,000 unit PO DAILY RF: 0 magnesium 250 mg tablet 250 mg PO BID RF: 0 acetaminophen 500 mg tablet 1,000 mg PO Q8H PRN (Reason: pain) Qty: 90 RF: 3 Discharge Instructions Additional Instructions: You have declined taking a blood thinner after a preliminary ultrasound, you are pending formal ultrasound, ultrasound will contact you tomorrow, please go to the appointment If you do not hear from US by 9:00am, I recommend calling ultrasound to be sure you are evaluated Should you develop chest pain, shortness of breath, please. Evaluated in the emergency room Please call your doctor after appointment regarding the swelling in your extremities if you tested negative for DVT or blood clot blood pressure rechecked by pcp Referrals: Kiera Ji MD, [place] [Primary Care Provider] - Medical Decision Making <IVANA Ramirez - Last Filed: 10/13/21 22:40> Thank to Dr. Hook documentation Preliminary ultrasound was performed in the emergency room, pending formal evaluation tomorrow I recommended Eliquis administration in the interim, however patient has declined, her son-in-law, Cheo, nurse area field worker with this facility does not question her decision She will be stable from tomorrow present to the emergency room for repeat assessment post ultrasound She has not been supplied with any anticoagulation at this time, she does understand the risk associated with DVT including pulmonary embolism She is alert, oriented, of decisional capacity Her vitals are stable aside from mild hypertension There is no significant evidence of volume overload on today's exam, her lungs are clear to auscultation, she is not hypoxic, and her vitals are essentially within normal limits Should she have a normal ultrasound, she will need to follow-up with her primary care physician regarding peripheral edema, compression stockings recommended and elevation of lower extremity with continuation of her hctz Medical Records Medical records reviewed: Yes I reviewed the patient's medical records. Lab Data Lab results reviewed: Yes I reviewed the patient's lab results. <Eduardo Hook DO - Last Filed: 10/13/21 22:23> Case was managed by IVANA Flores. I was asked to evaluate the patient after the patient's son specifically requested that I evaluate the patient for possible DVT. I did discuss with the patient and the patient's son who is at bedside that this is only a notably limited ultrasound evaluation and certainly not a formal ultrasound evaluation. Bedside ultrasound was performed, and I evaluated both legs for evidence of DVT. Ultrasound was performed up to the midshaft thigh from the foot, and no evidence of large DVT was noted. No evidence of arterial compromise was noted. Dorsalis pedis pulses were +1 bilaterally, and good color flow was noted on the film. No evidence of cellulitis on exam, no evidence of other significant clinical abnormality. No severe pitting edema. No focal neurologic deficit in the lower extremities. Please refer to the remainder of the management of the case by Julianna Flores. HPI <IVANA Ramirez - Last Filed: 10/13/21 22:40> General Mode of arrival: ambulatory. Date/Time Provider Initiated Documentation: 10/13/21 21:32. Limitations to Documentation: no limitations. Information obtained by: patient. HPI Narrative: 76-year-old female presents with report of bilateral peripheral edema. Patient denies any calf pain or shortness of breath. She denies any dizziness or weakness. She has a history of DVT and has been off her Eliquis for approximately 1 year and doing quite well. Today when she arrived home from work she took off her socks and noticed some swelling. She has been paresthesias at her right lower extremity overlying the area of swelling. She is taking her hydrochlorothiazide as prescribed. She denies known history of CHF. She denies any recent flights, surgeries, long drives. She otherwise feels quite well. Related Data Home Medications Medication Instructions Recorded Confirmed calcium carbonate-vitamin D3 1 ea PO DAILY 03/28/17 10/13/21 multivitamin [Daily Multi-Vitamin] 1 ea PO DAILY 03/28/17 10/13/21 cholecalciferol (vitamin D3) 5,000 unit PO DAILY 08/29/17 10/13/21 magnesium 250 mg tablet 250 mg PO BID tab 09/28/19 10/13/21 carboxymethylcellulose sodium 0.25 1 drp OPHTHALMIC (EYE) BID 05/15/20 10/13/21 % eye drops acetaminophen 500 mg tablet 1,000 mg PO Q8H PRN #90 tab 06/11/20 10/13/21 atorvastatin 10 mg tablet 10 mg PO QHS #90 tab 04/28/21 10/13/21 methotrexate sodium 2.5 mg tablet 10 mg PO .WEEKLY #75 tab 06/08/21 10/13/21 folic acid 1 mg tablet 1 mg PO DAILY #90 tab 08/18/21 10/13/21 hydrochlorothiazide 12.5 mg tablet 12.5 mg PO QAM #90 tab 08/18/21 10/13/21 losartan 100 mg tablet 100 mg PO HS #90 tab 08/18/21 10/13/21 oxybutynin chloride 10 mg 10 mg PO DAILY #90 tab 08/18/21 10/13/21 tablet,extended release 24 hr Previous Rx's Medication Instructions Recorded acetaminophen 500 mg tablet 1,000 mg PO Q8H PRN #90 tab 06/11/20 atorvastatin 10 mg tablet 10 mg PO QHS #90 tab 04/28/21 methotrexate sodium 2.5 mg tablet 10 mg PO .WEEKLY #75 tab 06/08/21 folic acid 1 mg tablet 1 mg PO DAILY #90 tab 08/18/21 hydrochlorothiazide 12.5 mg tablet 12.5 mg PO QAM #90 tab 08/18/21 losartan 100 mg tablet 100 mg PO HS #90 tab 08/18/21 oxybutynin chloride 10 mg 10 mg PO DAILY #90 tab 08/18/21 tablet,extended release 24 hr Allergies Allergy/AdvReac Type Severity Reaction Status Date / Time lisinopril AdvReac Intermediate cough Verified 10/13/21 21:38 hydrocodone bitartrate AdvReac Unknown [place] like Verified 10/13/21 21:38 [From Vicodin] worms were climbing on her legs Penicillins AdvReac Unknown Gets yeast Verified 10/13/21 21:38 infections tetracycline AdvReac per pt. Verified 10/13/21 21:38 I get very bad infections General Stated Complaint: Vascular KATHARINA: 3 Review of Systems <IVANA Ramirez - Last Filed: 10/13/21 22:40> All systems reviewed & are unremarkable except as noted in HPI and below PFSH <IVANA Ramirez - Last Filed: 10/13/21 22:40> Medical History Cough due to JONNY inhibitor 10/24/17 Degenerative joint disease of right hip Disturbance of skin sensation Diverticulosis DVT of lower extremity (deep venous thrombosis) 08/29/17 Family history of diabetes mellitus Hyperlipidemia Hypertension Impacted cerumen of both ears Lumbar stenosis with neurogenic claudication (05/03/17) Osteopenia Overweight Overweight Pain in posterior left lower extremity 07/06/17 Pain in right shoulder Polymyalgia rheumatica Pronation of both feet (07/03/18) Right rotator cuff tendonitis Sciatica, right side Urge incontinence Vitamin D deficiency (05/31/17) Surgical History History of bilateral total hip arthroplasty (06/11/20) History of cataract surgery Bilateral cataract 05/2020 Left ankle fracture 2003 Nuclear sclerotic cataract of left eye s/p cataract Open Carpal Tunnel release 06/09/17 B/L;DR. MEJIA 10/31/17 B/L; DR. MEJIA Pyoderma and Abcesses Sinus Endoscopy resulting in all teeth being pulled VAGINAL 1965 1967 1972 Family History Mother , age 57 Diabetes Heart disease Hyperlipidemia Stroke Sister Diabetes Heart disease Hyperlipidemia Breast cancer Sister Diabetes Breast cancer Heart disease Hyperlipidemia Brother Diabetes Myocardial infarction Lozano's lung Heart disease Hypertension Brother Diabetes Myocardial infarction Heart disease Hyperlipidemia Maternal Aunt Breast cancer FAMILY HISTORY Essential hypertension Father , age 82 Heart disease Myocardial infarction Diabetes Stroke Son No problems noted. Son No problems noted. Daughter No problems noted. Social History (Updated 08/22/21 @ 11:19 by Yocasta Marroquin) Smoking/Tobacco Use Status: Never Second Hand Exposure: Yes Smoking risk assessment performed?: Yes Alcohol Intake: never Drug use: Never Substance use type: does not use Household members: spouse Pets and animals: Yes Pets and animals: dog(s) Sexually active: No Do you think of yourself as: straight/heterosexual Current gender identity: female What is your relationship status?: How often do you talk on the phone with friends or family?: twice per week How often do you get together with friends or relatives?: once per week How often do you attend confucianism or alevism services?: 4 or more times per year Do you belong to any clubs or organized social groups?: yes Panel score (0-1 are the most socially isolated patients): 4 Seatbelt use: always Helmet use: Yes Helmet use: always 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 Do you feel safe at home: Yes Do you feel safe in your relationship?: Yes Exam <IVANA Ramirez - Last Filed: 10/13/21 22:40> Const General: cooperative, comfortable and no acute distress Neck Neck: no JVD Resp Effort & Inspection: normal respiratory effort Auscultation: clear to auscultation bilaterally Cardio Rate: regular rate Rhythm: regular rhythm Skin General skin exam: no rashes or lesions noted Neuro General: patient alert and patient oriented x3 Cranial Nerves: CN's II-XI intact bilaterally Cognition: normal cognition Speech: speech normal Gait: normal gait Sensory Exam: no sensory deficits noted Other: Strength and sensation intact distally Extrem Other: Dorsalis pedis pulse intact bilateral lower extremities, 1+ edema to bilateral lower extremities, no calf tenderness Course <IVANA Ramirez - Last Filed: 10/13/21 22:40> Vital Signs Vital signs: Vital Signs Temperature 36.4 C L 10/13/21 21:34 Pulse 76 10/13/21 21:34 Respiratory Rate 18 10/13/21 21:34 Blood Pressure 159/67 H 10/13/21 21:34 Pulse Oximetry 98 10/13/21 21:34 Temperature 36.4 C L 10/13/21 21:34 Temperature Source Temporal Artery Scan 10/13/21 21:34 Pulse 76 10/13/21 21:34 Respiratory Rate 18 10/13/21 21:34 Respiratory Effort Non-Labored 10/13/21 21:38 Blood Pressure 159/67 H 10/13/21 21:34 Pulse Oximetry 98 10/13/21 21:34 Oxygen Delivery Method Room Air 10/13/21 21:34 Oxygen Flow Rate 0 10/13/21 21:34 Pain Level 4 10/13/21 21:34
--- NOTE | 2021-10-13 22:34 | NUR.NOTE ---
Requisition for bilat us faxed to for 10/14/21 appt for hx of DVT. Patient will f/u in ED.Nursing Note:
== END 2021-10-13 22:56 | disposition home or self-care (01) ==
PROVIDERS: Emergency Provider Physician Assistant; PCP Family Medicine
DX: R60.0 Localized edema (principal); R20.2 Paresthesia of skin; Z86.718 Personal history of other venous thrombosis and embolism
CPT/HCPCS: 99282; 99283

== ENCOUNTER 2021-11-12 03:12 | Outpatient (CLI) | payer BC, SELFPAY ==
[2021-11-12 07:43] LABS: Abs Immature Grans 0.03 10^3/uL (0.0-0.06); Absolute Basophil Count 0.03 10^3/uL (0.0-0.2); Absolute Lymphocyte Count 1.75 10^3/uL (1.2-3.4); Absolute Neutrophil Count 3.39 10^3/uL (1.2-6.7); Basophils % 0.5; Eosinophils % 4.9; HCT 44.6 % (36.0-46.0); HGB 14.7 g/dL (11.2-15.7); Immature Grans % 0.5; Lymphocytes % 28.7; MCH 31.3 pg (27.0-33.0); MCV 95.1 fL (80-95); MPV 9.5 fL (8.0-11.0); Monocytes % 9.8; Neutrophils % 55.6; Nucleated RBC 0 %; Platelet Count 207 10^3/uL (130-400); RBC 4.69 10^6/uL (3.93-5.22); RDW 13.4 % (11.7-14.6); RDW-SD 46.5 fL
[2021-11-12 08:03] LABS: ALT 26 U/L (14-59); AST 23 U/L (15-37); Albumin 3.8 g/dL (3.4-5.0); Alkaline Phosphatase 76 U/L (46-116); Anion Gap 8.7 mmol/L (3-11); BUN 21 mg/dL (7-18); Bilirubin, Total 0.7 mg/dL (0.2-1.0); CO2 28.3 mmol/L (21.0-32.0); CREATININE 1.3 mg/dL (0.55-1.02); Calcium 10.4 mg/dL (8.5-10.1); Chloride 105 mmol/L (98-107); Estimated GFR 39.82 (mL/min/1.73m2); Glucose 94 mg/dL (74-106); Potassium 4.2 mmol/L (3.5-5.1); Sodium 142 mmol/L (136-145); Total Protein 7.1 g/dL (6.4-8.2)
== END 2021-11-12 03:13 | disposition home or self-care (01) ==
LOC: LBO 03:13
PROVIDERS: PCP Family Medicine; Visit Provider Internal Medicine
DX: M06.09 Rheumatoid arthritis without rheumatoid factor, multiple sites (principal)
CPT/HCPCS: 36415; 80053; 85025

== ENCOUNTER 2022-02-15 04:22 | Outpatient (CLI) | payer BC, SELFPAY ==
[2022-02-15 13:11] LABS: HCT 40.6 % (36.0-46.0); HGB 13.2 g/dL (11.2-15.7); MCH 31.5 pg (27.0-33.0); MCHC 32.5 % (32.0-36.0); MCV 96.9 fL (80-95); MPV 8.5 fL (8.0-11.0); Platelet Count 204 10^3/uL (130-400); RBC 4.19 10^6/uL (3.93-5.22); RDW 13.3 % (11.7-14.6); RDW-SD 47.3 fL; WBC 7.43 10^3/uL (4.4-10.8)
[2022-02-15 14:50] LABS: ALT 29 U/L (14-59); AST 23 U/L (15-37); Alkaline Phosphatase 85 U/L (46-116); BUN 24 mg/dL (7-18); Bilirubin, Total 0.7 mg/dL (0.2-1.0); CREATININE 1.2 mg/dL (0.55-1.02); Calcium 9.2 mg/dL (8.5-10.1); Chloride 104 mmol/L (98-107); Estimated GFR 43.68 (mL/min/1.73m2); Glucose 94 mg/dL (74-106); Potassium 3.5 mmol/L (3.5-5.1); Sodium 143 mmol/L (136-145); Total Protein 6.8 g/dL (6.4-8.2)
== END 2022-02-15 04:23 | disposition home or self-care (01) ==
LOC: LBO 04:22
PROVIDERS: PCP Family Medicine; Visit Provider Internal Medicine
DX: I10 Essential (primary) hypertension (principal)
CPT/HCPCS: 36415; 80053; 85027

== ENCOUNTER 2022-05-28 02:03 | Outpatient (CLI) | payer BC, SELFPAY ==
[2022-05-28 09:56] LABS: Abs Immature Grans 0.03 10^3/uL (0.0-0.06); Absolute Basophil Count 0.04 10^3/uL (0.0-0.2); Absolute Eosinophil Count 0.36 10^3/uL (0.0-0.7); Absolute Lymphocyte Count 1.94 10^3/uL (1.2-3.4); Absolute Neutrophil Count 3.78 10^3/uL (1.2-6.7); Basophils % 0.6; Eosinophils % 5.2; HCT 36.8 % (36.0-46.0); HGB 12.5 g/dL (11.2-15.7); Immature Grans % 0.4; Lymphocytes % 27.9; MCH 31.8 pg (27.0-33.0); MCV 94 fL (80-95); MPV 9.1 fL (8.0-11.0); Monocytes % 11.5; Neutrophils % 54.4; Platelet Count 245 10^3/uL (130-400); RBC 3.93 10^6/uL (3.93-5.22); RDW-SD 47.4 fL; WBC 6.95 10^3/uL (4.4-10.8)
[2022-05-28 10:13] LABS: ALT 24 U/L (14-59); AST 22 U/L (15-37); Albumin 3.6 g/dL (3.4-5.0); Alkaline Phosphatase 82 U/L (46-116); Anion Gap 7.2 mmol/L (3-11); BUN 16 mg/dL (7-18); Bilirubin, Total 0.6 mg/dL (0.2-1.0); CO2 28.8 mmol/L (21.0-32.0); CREATININE 1.1 mg/dL (0.55-1.02); Calcium 8.9 mg/dL (8.5-10.1); Chloride 105 mmol/L (98-107); Estimated GFR 48.29 (mL/min/1.73m2); Glucose 89 mg/dL (74-106); Potassium 3.7 mmol/L (3.5-5.1); Sodium 141 mmol/L (136-145); Total Protein 6.7 g/dL (6.4-8.2)
== END 2022-05-28 02:04 | disposition home or self-care (01) ==
LOC: LBO 02:03
PROVIDERS: PCP Family Medicine; Visit Provider Internal Medicine
DX: M06.09 Rheumatoid arthritis without rheumatoid factor, multiple sites (principal)
CPT/HCPCS: 36415; 80053; 85025

== ENCOUNTER 2022-07-15 05:20 | Outpatient (CLI) | payer BC, SELFPAY ==
[2022-07-15 14:49] LABS: Abs Immature Grans 0.03 10^3/uL (0.0-0.06); Absolute Basophil Count 0.04 10^3/uL (0.0-0.2); Absolute Eosinophil Count 0.31 10^3/uL (0.0-0.7); Absolute Lymphocyte Count 2.01 10^3/uL (1.2-3.4); Absolute Monocyte Count 0.91 10^3/uL (0.1-0.8); Absolute Neutrophil Count 4.96 10^3/uL (1.2-6.7); Basophils % 0.5; Eosinophils % 3.8; HGB 13.3 g/dL (11.2-15.7); Immature Grans % 0.4; Lymphocytes % 24.3; MCH 31.8 pg (27.0-33.0); MCHC 34.1 % (32.0-36.0); MCV 93 fL (80-95); MPV 9.1 fL (8.0-11.0); Platelet Count 237 10^3/uL (130-400); RBC 4.18 10^6/uL (3.93-5.22); RDW 13.7 % (11.7-14.6); RDW-SD 46.4 fL; WBC 8.26 10^3/uL (4.4-10.8)
[2022-07-15 15:10] LABS: ALT 31 U/L (14-59); AST 25 U/L (15-37); Albumin 3.8 g/dL (3.4-5.0); Alkaline Phosphatase 87 U/L (46-116); BUN 18 mg/dL (7-18); Bilirubin, Total 0.4 mg/dL (0.2-1.0); Calcium 9.1 mg/dL (8.5-10.1); Chloride 106 mmol/L (98-107); Glucose 77 mg/dL (74-106); Sodium 143 mmol/L (136-145); Total Protein 7.1 g/dL (6.4-8.2)
[2022-07-15 15:15] LABS: CREATININE 1.1 mg/dL (0.55-1.02); Estimated GFR 52.08 (mL/min/1.73m2)
== END 2022-07-15 05:21 | disposition home or self-care (01) ==
LOC: LBO 05:20
PROVIDERS: PCP Family Medicine; Visit Provider Internal Medicine
DX: M06.09 Rheumatoid arthritis without rheumatoid factor, multiple sites (principal)
CPT/HCPCS: 36415; 80053; 85025

== ENCOUNTER 2022-11-04 02:22 | Outpatient (CLI) | payer BC, SELFPAY ==
[2022-11-04 16:14] LABS: Abs Immature Grans 0.04 10^3/uL (0.0-0.06); Absolute Basophil Count 0.09 10^3/uL (0.0-0.2); Absolute Eosinophil Count 0.43 10^3/uL (0.0-0.7); Absolute Lymphocyte Count 2.42 10^3/uL (1.2-3.4); Absolute Monocyte Count 0.98 10^3/uL (0.1-0.8); Absolute Neutrophil Count 4.45 10^3/uL (1.2-6.7); Basophils % 1.1; Eosinophils % 5.1; HCT 38.1 % (36.0-46.0); HGB 12.7 g/dL (11.2-15.7); Immature Grans % 0.5; Lymphocytes % 28.8; MCH 31.4 pg (27.0-33.0); MCHC 33.3 % (32.0-36.0); MCV 94 fL (80-95); MPV 8.6 fL (8.0-11.0); Monocytes % 11.7; Neutrophils % 52.8; Platelet Count 285 10^3/uL (130-400); RBC 4.05 10^6/uL (3.93-5.22); RDW 13.9 % (11.7-14.6); RDW-SD 46.9 fL; WBC 8.41 10^3/uL (4.4-10.8)
[2022-11-04 16:36] LABS: ALT 24 U/L (14-59); AST 24 U/L (15-37); Albumin 3.7 g/dL (3.4-5.0); Alkaline Phosphatase 93 U/L (46-116); Anion Gap 11.3 mmol/L (3-11); BUN 26 mg/dL (7-18); Bilirubin, Total 0.4 mg/dL (0.2-1.0); CO2 23.7 mmol/L (21.0-32.0); CREATININE 1.3 mg/dL (0.55-1.02); Calcium 9.4 mg/dL (8.5-10.1); Chloride 105 mmol/L (98-107); Estimated GFR 42.35 (mL/min/1.73m2); Glucose 114 mg/dL (74-106); Sodium 140 mmol/L (136-145); Total Protein 7.2 g/dL (6.4-8.2)
== END 2022-11-04 02:23 | disposition home or self-care (01) ==
LOC: LBO 02:22
PROVIDERS: PCP Family Medicine; Visit Provider Internal Medicine
DX: M06.09 Rheumatoid arthritis without rheumatoid factor, multiple sites (principal)
CPT/HCPCS: 36415; 80053; 85025

== ENCOUNTER 2022-11-16 04:01 | Outpatient (CLI) | payer BC, SELFPAY ==
[2022-11-16 12:45] LABS: Anion Gap 9.6 mmol/L (3-11); BUN 19 mg/dL (7-18); CO2 25.4 mmol/L (21.0-32.0); CREATININE 1.2 mg/dL (0.55-1.02); Calcium 9.4 mg/dL (8.5-10.1); Chloride 107 mmol/L (98-107); Estimated GFR 46.62 (mL/min/1.73m2); Glucose 108 mg/dL (74-106); Sodium 142 mmol/L (136-145)
== END 2022-11-16 04:02 | disposition home or self-care (01) ==
LOC: LOS 04:01
PROVIDERS: PCP Family Medicine; Visit Provider Family Medicine
DX: E87.6 Hypokalemia (principal)
CPT/HCPCS: 36415; 80048

== ENCOUNTER 2023-03-07 01:36 | Outpatient (CLI) | payer BC, SELFPAY ==
[2023-03-07 14:48] LABS: Abs Immature Grans 0.05 10^3/uL (0.0-0.06); Absolute Basophil Count 0.06 10^3/uL (0.0-0.2); Absolute Eosinophil Count 0.42 10^3/uL (0.0-0.7); Basophils % 0.7; Eosinophils % 4.8; HCT 41.5 % (36.0-46.0); HGB 14.1 g/dL (11.2-15.7); Immature Grans % 0.6; Lymphocytes % 28.6; MCV 94 fL (80-95); MPV 8.7 fL (8.0-11.0); Monocytes % 10.3; Platelet Count 232 10^3/uL (130-400); RDW 12.9 % (11.7-14.6); RDW-SD 44.3 fL; WBC 8.73 10^3/uL (4.4-10.8)
[2023-03-07 15:48] LABS: ALT 24 U/L (14-59); AST 21 U/L (15-37); Albumin 3.8 g/dL (3.4-5.0); Alkaline Phosphatase 103 U/L (46-116); Anion Gap 8.7 mmol/L (3-11); BUN 18 mg/dL (7-18); Bilirubin, Total 0.6 mg/dL (0.2-1.0); CO2 29.3 mmol/L (21.0-32.0); CREATININE 1.2 mg/dL (0.55-1.02); Chloride 103 mmol/L (98-107); Estimated GFR 46.62 (mL/min/1.73m2); Glucose 94 mg/dL (74-106); Sodium 141 mmol/L (136-145); Total Protein 7.4 g/dL (6.4-8.2)
== END 2023-03-07 01:37 | disposition home or self-care (01) ==
LOC: LBO 01:36
PROVIDERS: PCP Family Medicine; Visit Provider Internal Medicine
DX: M06.09 Rheumatoid arthritis without rheumatoid factor, multiple sites (principal)
CPT/HCPCS: 36415; 80053; 85025

== ENCOUNTER 2023-03-30 00:36 | Outpatient (CLI) | payer BC, SELFPAY ==
--- NOTE | 2023-03-30 15:15 | DI.RAD_ITS ---
Exam(s) XR LUMBAR SPINE COMPLETE EXAM: XR LUMBAR SPINE COMPLETE CLINICAL HISTORY: LOW BACK PAIN and left leg pain,SPINAL STENOSIS,M48.062. TECHNIQUE: 2D digital imaging was performed. Five views. COMPARISON: CR XR LUMBAR SPINE COMPLETE from 07/30/2019 FINDINGS: BONES: No fracture or destructive lesion. Vertebral body heights are maintained. Endplate osteophyte s throughout, greatest on the right side which are bridging at L1-2 and L2-3. Prominent facet hypert rophy identified L2-3 through L5-S1, greater on the left.. Bilateral hip prostheses now present. DISKS: narrowing of the L1-2 through L5-S1 disc spaces. The narrowing is asymmetric toward the rig ht from L 1 2 through L 4 5 and asymmetric toward the left at L5-S1. ALIGNMENT: Stable mild levoscoliosis. SOFT TISSUE: Calcification in the aorta which is not dilated. IMPRESSION: Grossly stable severe degenerative disc changes and facet degenerative changes. DATA REPOSITORY: RADIATION DOSE DELIVERED:
== END 2023-03-30 00:56 ==
LOC: DI 00:36
PROVIDERS: PCP Family Medicine; Visit Provider Family Medicine
DX: M47.816 Spondylosis without myelopathy or radiculopathy, lumbar region (principal); R41.3 Other amnesia
CPT/HCPCS: 72110

== ENCOUNTER 2023-03-30 03:30 | Outpatient (CLI) | payer BC, SELFPAY ==
[2023-03-30 15:45] LABS: TSH (W/Ref FT4) 1.29 uIU/mL (0.36-3.74)
== END 2023-03-30 03:31 | disposition home or self-care (01) ==
LOC: LBO 03:30
PROVIDERS: PCP Family Medicine; Visit Provider Family Medicine
DX: I10 Essential (primary) hypertension (principal); R41.3 Other amnesia
CPT/HCPCS: 36415; 84443

== ENCOUNTER 2023-06-13 14:55 | Outpatient (CLI) | payer BC, SELFPAY ==
--- NOTE | 2023-06-13 | DI.RAD_ITS ---
Exam(s) XR FOOT RT COMPLETE EXAM: XR FOOT RT COMPLETE CLINICAL HISTORY: RHEUMATOID ARTHRITIS OF MULTIPLE SITES WI NEGATIVE RHEUMATOID FACTOR,M06.09. TECHNIQUE: 2D digital imaging was performed. COMPARISON: No exams were available for comparison FINDINGS: 3 views No evidence of fracture or diastasis of the Lisfranc joint. Bone density normal. No osseous lesions nor erosions. No pes planus. Great toe metatarsophalangeal joint appears unremarkable. No vascula r calcification evident in the foot. IMPRESSION: No significant osseous findings in the foot. DATA REPOSITORY: RADIATION DOSE DELIVERED:
== END 2023-06-13 15:15 ==
LOC: DI 14:56
PROVIDERS: PCP Family Medicine; Visit Provider Internal Medicine
DX: M06.09 Rheumatoid arthritis without rheumatoid factor, multiple sites (principal)
CPT/HCPCS: 73630

== ENCOUNTER 2023-06-14 04:07 | Outpatient (CLI) | payer BC, SELFPAY ==
[2023-06-14 12:15] LABS: Abs Immature Grans 0.03 10^3/uL (0.0-0.06); Absolute Basophil Count 0.06 10^3/uL (0.0-0.2); Absolute Eosinophil Count 0.27 10^3/uL (0.0-0.7); Absolute Lymphocyte Count 2.01 10^3/uL (1.2-3.4); Absolute Monocyte Count 0.96 10^3/uL (0.1-0.8); Absolute Neutrophil Count 4.71 10^3/uL (1.2-6.7); Basophils % 0.7; Eosinophils % 3.4; HCT 39.8 % (36.0-46.0); HGB 13.4 g/dL (11.2-15.7); Immature Grans % 0.4; MCHC 33.7 % (32.0-36.0); MCV 95 fL (80-95); MPV 8.7 fL (8.0-11.0); Monocytes % 11.9; Neutrophils % 58.6; Platelet Count 238 10^3/uL (130-400); RBC 4.19 10^6/uL (3.93-5.22); RDW 12.8 % (11.7-14.6); RDW-SD 44.2 fL; WBC 8.04 10^3/uL (4.4-10.8)
[2023-06-14 12:50] LABS: ALT 19 U/L (14-59); AST 20 U/L (15-37); Albumin 3.6 g/dL (3.4-5.0); Alkaline Phosphatase 87 U/L (46-116); Anion Gap 7.1 mmol/L (3-11); BUN 15 mg/dL (7-18); Bilirubin, Total 0.7 mg/dL (0.2-1.0); CO2 28.9 mmol/L (21.0-32.0); Calcium 8.9 mg/dL (8.5-10.1); Chloride 105 mmol/L (98-107); Estimated GFR 58.02 (mL/min/1.73m2); Glucose 80 mg/dL (74-106); Potassium 3.5 mmol/L (3.5-5.1); Sodium 141 mmol/L (136-145); Total Protein 6.6 g/dL (6.4-8.2)
== END 2023-06-14 04:08 | disposition home or self-care (01) ==
PROVIDERS: PCP Family Medicine; Visit Provider Internal Medicine
DX: M06.09 Rheumatoid arthritis without rheumatoid factor, multiple sites (principal); E87.6 Hypokalemia
CPT/HCPCS: 36415; 80053; 85025

== ENCOUNTER 2023-08-30 17:33 | Outpatient (CLI) | payer BC, SELFPAY ==
[2023-08-30 15:14] LABS: Abs Immature Grans 0.03 10^3/uL (0.0-0.06); Absolute Basophil Count 0.06 10^3/uL (0.0-0.2); Absolute Eosinophil Count 0.37 10^3/uL (0.0-0.7); Absolute Lymphocyte Count 2.29 10^3/uL (1.2-3.4); Absolute Monocyte Count 0.87 10^3/uL (0.1-0.8); Absolute Neutrophil Count 4.08 10^3/uL (1.2-6.7); Basophils % 0.8; Eosinophils % 4.8; HCT 39.6 % (36.0-46.0); HGB 13.2 g/dL (11.2-15.7); Immature Grans % 0.4; Lymphocytes % 29.7; MCH 31.4 pg (27.0-33.0); MCHC 33.3 % (32.0-36.0); MCV 94 fL (80-95); MPV 9.4 fL (8.0-11.0); Monocytes % 11.3; Platelet Count 238 10^3/uL (130-400); RDW 13.4 % (11.7-14.6); RDW-SD 45.9 fL
[2023-08-30 16:41] LABS: ALT 19 U/L (14-59); AST 17 U/L (15-37); Albumin 3.7 g/dL (3.4-5.0); Alkaline Phosphatase 98 U/L (46-116); Anion Gap 9.1 mmol/L (3-11); BUN 21 mg/dL (7-18); Bilirubin, Total 0.4 mg/dL (0.2-1.0); CO2 27.9 mmol/L (21.0-32.0); CREATININE 1.4 mg/dL (0.55-1.02); Calcium 9.6 mg/dL (8.5-10.1); Chloride 104 mmol/L (98-107); Estimated GFR 38.51 (mL/min/1.73m2); Glucose 113 mg/dL (74-106); Potassium 3.6 mmol/L (3.5-5.1); Sodium 141 mmol/L (136-145); Total Protein 6.9 g/dL (6.4-8.2)
== END 2023-08-30 17:34 | disposition home or self-care (01) ==
LOC: LBO 17:33
PROVIDERS: PCP Family Medicine; Visit Provider Internal Medicine
DX: M06.09 Rheumatoid arthritis without rheumatoid factor, multiple sites (principal)
CPT/HCPCS: 36415; 80053; 85025

== ENCOUNTER 2023-12-01 05:02 | Outpatient (CLI) | payer BC, SELFPAY ==
[2023-12-01 15:33] LABS: Abs Immature Grans 0.03 10^3/uL (0.0-0.06); Absolute Basophil Count 0.04 10^3/uL (0.0-0.2); Absolute Eosinophil Count 0.37 10^3/uL (0.0-0.7); Absolute Lymphocyte Count 2.06 10^3/uL (1.2-3.4); Absolute Monocyte Count 0.64 10^3/uL (0.1-0.8); Absolute Neutrophil Count 3.86 10^3/uL (1.2-6.7); Basophils % 0.6; Eosinophils % 5.3; HCT 40.1 % (36.0-46.0); HGB 13.6 g/dL (11.2-15.7); Immature Grans % 0.4; Lymphocytes % 29.4; MCH 32.2 pg (27.0-33.0); MCHC 33.9 % (32.0-36.0); MCV 95 fL (80-95); MPV 9.1 fL (8.0-11.0); Monocytes % 9.1; Neutrophils % 55.2; Platelet Count 233 10^3/uL (130-400); RBC 4.23 10^6/uL (3.93-5.22); RDW 13.2 % (11.7-14.6); RDW-SD 45.5 fL
[2023-12-01 16:04] LABS: ALT 23 U/L (14-59); AST 20 U/L (15-37); Albumin 3.8 g/dL (3.4-5.0); Alkaline Phosphatase 90 U/L (46-116); Anion Gap 8.2 mmol/L (3-11); BUN 22 mg/dL (7-18); Bilirubin, Total 0.7 mg/dL (0.2-1.0); CO2 28.8 mmol/L (21.0-32.0); CREATININE 1.4 mg/dL (0.55-1.02); Calcium 9.6 mg/dL (8.5-10.1); Chloride 103 mmol/L (98-107); Estimated GFR 38.51 (mL/min/1.73m2); Glucose 157 mg/dL (74-106); Sodium 140 mmol/L (136-145); Total Protein 7.3 g/dL (6.4-8.2)
[2023-12-01 16:32] LABS: Potassium 2.9 mmol/L (3.5-5.1)
== END 2023-12-01 05:03 | disposition home or self-care (01) ==
LOC: LBO 05:02
PROVIDERS: PCP Family Medicine; Visit Provider Internal Medicine
DX: E87.6 Hypokalemia (principal); M06.09 Rheumatoid arthritis without rheumatoid factor, multiple sites
CPT/HCPCS: 36415; 80053; 85025

== ENCOUNTER 2023-12-05 09:03 | Outpatient (CLI) | payer BC, SELFPAY ==
[2023-12-05 12:34] LABS: ALT 22 U/L (14-59); AST 23 U/L (15-37); Albumin 3.6 g/dL (3.4-5.0); Alkaline Phosphatase 83 U/L (46-116); Anion Gap 3.9 mmol/L (3-11); BUN 14 mg/dL (7-18); Bilirubin, Total 0.7 mg/dL (0.2-1.0); CO2 29.1 mmol/L (21.0-32.0); CREATININE 1.1 mg/dL (0.55-1.02); Calcium 9.2 mg/dL (8.5-10.1); Chloride 107 mmol/L (98-107); Estimated GFR 51.43 (mL/min/1.73m2); Glucose 95 mg/dL (74-106); Potassium 4.7 mmol/L (3.5-5.1); Sodium 140 mmol/L (136-145); Total Protein 6.9 g/dL (6.4-8.2)
== END 2023-12-05 09:04 | disposition home or self-care (01) ==
LOC: LOS 09:03
PROVIDERS: PCP Family Medicine; Referring Provider Family Medicine; Visit Provider Family Medicine
DX: I10 Essential (primary) hypertension (principal)
CPT/HCPCS: 36415; 80053

== ENCOUNTER 2024-03-20 05:49 | Outpatient (CLI) | payer BC, SELFPAY ==
[2024-03-20 15:16] LABS: Abs Immature Grans 0.03 10^3/uL (0.0-0.06); Absolute Basophil Count 0.05 10^3/uL (0.0-0.2); Absolute Eosinophil Count 0.39 10^3/uL (0.0-0.7); Absolute Lymphocyte Count 2.13 10^3/uL (1.2-3.4); Absolute Monocyte Count 0.55 10^3/uL (0.1-0.8); Basophils % 0.8 %; Eosinophils % 6.3 %; HCT 39.5 % (36.0-46.0); HGB 13.5 g/dL (11.2-15.7); Immature Grans % 0.5 %; Lymphocytes % 34.6 %; MCHC 34.2 % (32.0-36.0); MCV 94 fL (80-95); Monocytes % 8.9 %; Neutrophils % 48.9 %; Platelet Count 214 10^3/uL (130-400); RBC 4.22 10^6/uL (3.93-5.22); RDW 13.2 % (11.7-14.6); RDW-SD 44.9 fL; WBC 6.15 10^3/uL (4.4-10.8)
[2024-03-20 15:54] LABS: ALT 27 U/L (14-59); AST 22 U/L (15-37); Albumin 3.6 g/dL (3.4-5.0); Alkaline Phosphatase 93 U/L (46-116); Anion Gap 9.7 mmol/L (3-11); BUN 17 mg/dL (7-18); Bilirubin, Total 0.5 mg/dL (0.2-1.0); CO2 26.3 mmol/L (21.0-32.0); Calcium 9.1 mg/dL (8.5-10.1); Chloride 110 mmol/L (98-107); Estimated GFR 57.66 (mL/min/1.73m2); Glucose 104 mg/dL (74-106); Potassium 4.1 mmol/L (3.5-5.1); Sodium 146 mmol/L (136-145); Total Protein 6.6 g/dL (6.4-8.2)
== END 2024-03-20 05:50 | disposition home or self-care (01) ==
LOC: LBO 05:49
PROVIDERS: PCP Family Medicine; Visit Provider Internal Medicine
DX: E87.6 Hypokalemia (principal); M06.09 Rheumatoid arthritis without rheumatoid factor, multiple sites
CPT/HCPCS: 36415; 80053; 85025

== ENCOUNTER 2024-06-25 08:13 | Day surgery (SDC) | payer BC, SELFPAY ==
[2024-06-25 08:54] VITALS: BP 174/68; PULSE 70; RESP 18; TEMP 36.4; O2SAT 98
[2024-06-25] MEDS: Lactated Ringers 1,000 ML 80 ML IV (09:20)
--- NOTE | 2024-06-25 10:14 | W.ANESPRE ---
General Info Date of Service Date Performed: 06/25/24 Height: 5 ft 1.5 in Weight: 68.1 kg Body Mass Index (BMI): 27.8 Surgical Procedure: Operation Date: 06/25/24 10:10 Proposed Procedure Side Surgeon p Bladder Installation- Botox Jonas Farah MD Meds Allergies and Home Medications Allergies Allergy/AdvReac Type Severity Reaction Status Date / Time lisinopril AdvReac Intermediate cough Verified 06/25/24 08:46 hydrocodone bitartrate (From AdvReac Unknown [place] like Verified 06/25/24 08:46 Vicodin) worms were climbing on her legs Penicillins AdvReac Unknown Gets yeast Verified 06/25/24 08:46 infections tetracycline AdvReac per pt. Verified 06/25/24 08:46 I get very bad infections Home Medication ?Medication ?Instructions ?Recorded calcium carbonate 1,000 mg-vitamin 1 ea PO DAILY 03/28/17 D3 20 mcg (800 unit) tablet multivitamin (Daily Multi-Vitamin 1 ea PO DAILY 03/28/17 tablet) magnesium 250 mg tablet 250 mg PO BID 09/28/19 carboxymethylcellulose sodium 0.25 1 drp ophthalmic (eye) BID 05/15/ % eye drops (TheraTears) methotrexate sodium 2.5 mg tablet 10 mg (4 x 2.5 mg) PO .WEEKLY #75 11/04/22 tabs atorvastatin 40 mg tablet 40 mg PO QHS #90 tabs 10/03/23 folic acid 1 mg tablet 1 mg PO DAILY #90 tabs 10/03/23 losartan 100 mg tablet 100 mg PO HS #90 tabs 10/03/23 potassium chloride 10 mEq 10 - 20 meq (1 - 2 x 10 mEq) PO 12/06/23 capsule,extended release DAILY #180 caps acetaminophen 500 mg tablet 500 mg PO Q6H PRN 06/25/24 (Tylenol Extra Strength) Current Visit Medications: Current Medications Generic Name Dose Route Start Last Admin Trade Name Freq PRN Reason Stop Dose Admin OnabotulinumtoxinA 100 units/ 0 units 06/25/24 06:00 Sodium Chloride 20 ml IJ 06/25/24 16:00 TODAY TICO Ringer's Solution 1,000 mls @ 80 mls/hr 06/25/24 06:00 06/25/24 09:20 IV 07/22/24 23:59 80 mls/hr INFUSION TICO Administration Cefazolin Sodium/Dextrose 2 gm in 50 mls @ 100 mls/hr 06/25/24 06:00 Ancef Duplex IVPB 06/25/24 16:00 PREOP TICO IV Miscellaneous Supplies 1 each 06/25/24 06:00 Iv Access IV 07/22/24 23:59 DIRECTED TICO Sodium Chloride 0 ml 06/25/24 06:00 Normal Saline Flush 10 Ml Syr IV 07/22/24 23:59 PRN PRN Sodium Chloride 0 ml 06/25/24 06:00 Normal Saline 10 Ml Vial IJ 07/22/24 23:59 DIRECTED PRN Sterile Water 0 ml 06/25/24 06:00 Water,Injection,Sterile 10 Ml Vial IJ 07/22/24 23:59 DIRECTED PRN PFSH Active Problems Active Problems: Problem Status Onset Code Asymmetrical sensorineural hearing loss Acute H90.3 Cerumen impaction Acute H61.20 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 Eye abnormality Acute Q15.9 Memory changes Acute R41.3 Urinary incontinence Acute R32 Deep vein thrombosis (DVT) of lower extremity Acute 08/29/17 I82.409 Diverticulosis Chronic K57.90 Hypertension Chronic I10 Lumbar stenosis with neurogenic claudication Chronic 05/03/17 M48.062 Osteopenia Chronic M85.80 Vitamin D deficiency Chronic 05/31/17 E55.9 Medical History Medical History Hypokalemia Edema, peripheral Right rotator cuff tendonitis Degenerative joint disease of right hip Impacted cerumen of both ears Bilateral edema of lower extremity (04/01/17) Overweight Pain in posterior left lower extremity (07/06/17) Skin sensation disturbance Disturbance of skin sensation Overweight Pain in posterior left lower extremity 07/06/17 DVT of lower extremity (deep venous thrombosis) 08/29/17 Cough due to JONNY inhibitor 10/24/17 Knee pain, bilateral Family history of diabetes mellitus Hyperlipidemia Pain in right shoulder Polymyalgia rheumatica Pronation of both feet (07/03/18) Sciatica, right side Urge incontinence Surgical History Surgical History History of nasal surgery Nasal Reconstruction due to breathing issues History of bilateral total hip arthroplasty (06/11/20) History of cataract surgery Bilateral cataract 05/2020 Nuclear sclerotic cataract of right eye Nuclear sclerotic cataract of left eye s/p cataract VAGINAL 1965 1967 1972 Sinus Endoscopy resulting in all teeth being pulled Pyoderma and Abcesses Open Carpal Tunnel release 06/09/17 B/L;DR. MEJIA 10/31/17 B/L; DR. MEJIA Left ankle fracture 2003 Tobacco Smoking/Tobacco Use Status: Never Passive smoking exposure: Yes Second hand exposure: Yes Alcohol Alcohol Intake: never Substance Use Substance use: Never Substance use type: does not use Vital Signs and Lab Results Vital Signs Most Recent Vital Signs in EMR: Most Recent Vital Signs Temp Pulse Resp BP Pulse Ox 36.4 C L 70 18 174/68 H 98 06/25/24 08:54 06/25/24 08:54 06/25/24 08:54 06/25/24 08:54 06/25/24 08:54 Lab Results Blood Type / Crossmatch: No Data to Display Complete Blood Count: No Data to Display Complete Metabolic Panel: No Data to Display Liver Function Panel: No Data to Display Coagulation Panel: No Data to Display Cardiac Panel: No Data to Display Arterial Blood Gas: No Data to Display Venous Blood Gas: No Data to Display Pancreas Panel: No Data to Display Thyroid Panel: No Data to Display Infectious Disease: No Data to Display Blood Cultures: No Data to Display Toxicology Panel: No Data to Display Imaging and Studies Imaging and Studies Study information below may be from another EMR and interpreted by another provider. Please see original notes in EMR for more complete details. Echocardiogram Summary: 04/19/2017: Summary: 1. Left ventricle: The cavity size was normal. There was mild focal basal hypertrophy of the septum. Systolic function was normal. The estimated ejection fraction was 55-60%. Wall motion was normal; there were no regional wall motion abnormalities. 2. Right ventricle: The cavity size was normal. Systolic function was normal. 3. Mitral valve: There was mild regurgitation. 4. Pulmonary arteries: Pulmonary systolic pressure was within the normal range, in the range of 25mm Hg to 30mm Hg. 5. Inferior vena cava: The vessel was normal in size. The respirophasic diameter changes were in the normal range (greater than or equal to 50%), consistent with normal central venous pressure. Anesthesia Assessment and Plan Anesthesia History Personal History: No History of Anesthesia Complications Family History: No Family History of Anesthesia Complications Exercise Tolerance Exercise Tolerance: Metabolic Equivalents>4 Pertinent Negatives Pertinent Negatives: No Symptoms of GERD, No Major Cardiovascular Symptoms or Complaints and No Major Pulmonary Symptoms or Complaints Cardiac & Pulmonary Exam Cardiac Exam: Normal S1/S2 Heart Sounds Pulmonary Exam: Clear Bilateral Breath Sounds Implantable Cardiac Device Does patient have a Pacemaker or an ICD?: No Airway Exam Known Difficult Airway: No Mallampati Class: 2 Mouth Opening: Normal (> 3cm) Thyromental Distance: Less than 3 cm Neck Range of Motion: Full ROM Neck Circumference: Normal Teeth Condition: Removable Dentures/Plates Upper and Removable Dentures/Plates Lower ASA Classification ASA Score: ASA 2 Emergency Case?: No NPO Status NPO Status: NPO Clears >2 hours, Solids >8 hours Anesthesia Plan Resuscitation Status: Full Code Anesthesia Technique: General Anesthesia Airway Planned: Natural Airway Monitors Used: Standard Monitors
--- NOTE | 2024-06-25 11:21 | HPE_ITS ---
Date of service: 06/25/24 Time of Service: 11:21 Assessment and Plan Assessment and plan (1) Urinary incontinence: Status: Acute Assessment and plan: Her most bothersome symptom is urgency incontinence due to overactive bladder. She has failed behavioral modification, pelvic floor physical therapy and oral medications. 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 History of Present Illness History of Present Illness Chief Complaint: Urgency Incontinence due to overactive bladder Narrative: This is a 78-year-old woman who has a long history of urinary incontinence. She has features of both urgency incontinence and stress incontinence, but it is the urgency incontinence that is most bothersome for her. She has no neurologic issues. In the past, she has tried behavioral modification and pelvic floor physical therapy. She was unable to tolerate anticholinergics due to side effects. She was unable to tolerate beta 3 agonist due to prohibitive cost. 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 Review of Systems Narrative: No fevers or chills Hearing loss. No vision change or dysphasia No diabetes or thyroid No shortness of breath, cough or hemoptysis No chest pain or palpitations No nausea, vomiting, hepatitis, ulcers, jaundice, diarrhea or constipation No seizures, strokes or peripheral neuropathy Hx DVT. No bleeding disorders or anemia Lumbar stenosis. Hx PMR. No gout PFSH All Active Problems Asymmetrical sensorineural hearing loss (Acute) Cerumen impaction (Acute) Grief (Chronic) Eye abnormality (Acute) Memory changes (Acute) MMSE 29/30 Urinary incontinence (Acute) Deep vein thrombosis (DVT) of lower extremity (Acute 08/29/17) Left leg - 3 years ago Diverticulosis (Chronic) Hypertension (Chronic) Lumbar stenosis with neurogenic claudication (Chronic 05/03/17) Osteopenia (Chronic) Vitamin D deficiency (Chronic 05/31/17) Medical History Hypokalemia Edema, peripheral Right rotator cuff tendonitis Degenerative joint disease of right hip Impacted cerumen of both ears Bilateral edema of lower extremity (04/01/17) Overweight Pain in posterior left lower extremity (07/06/17) Skin sensation disturbance Disturbance of skin sensation Overweight Pain in posterior left lower extremity 07/06/17 DVT of lower extremity (deep venous thrombosis) 08/29/17 Cough due to JONNY inhibitor 10/24/17 Knee pain, bilateral Family history of diabetes mellitus Hyperlipidemia Pain in right shoulder Polymyalgia rheumatica Pronation of both feet (07/03/18) Sciatica, right side Urge incontinence Surgical History History of nasal surgery Nasal Reconstruction due to breathing issues History of bilateral total hip arthroplasty (06/11/20) History of cataract surgery Bilateral cataract 05/2020 Nuclear sclerotic cataract of right eye Nuclear sclerotic cataract of left eye s/p cataract VAGINAL 1965 1967 1972 Sinus Endoscopy resulting in all teeth being pulled Pyoderma and Abcesses Open Carpal Tunnel release 06/09/17 B/L;DR. MEJIA 10/31/17 B/L; DR. MEJIA Left ankle fracture 2003 Family History Mother , age 57 Diabetes Heart disease Hyperlipidemia Stroke Sister Diabetes Heart disease Hyperlipidemia Breast cancer Sister Diabetes Breast cancer Heart disease Hyperlipidemia Brother Diabetes Myocardial infarction Lozano's lung Heart disease Hypertension Brother Diabetes Myocardial infarction Heart disease Hyperlipidemia Maternal Aunt Breast cancer FAMILY HISTORY Essential hypertension Father , age 82 Heart disease Myocardial infarction Diabetes Stroke Son No problems noted. Son No problems noted. Daughter No problems noted. Social History Smoking/Tobacco Use Status: Never Second Hand Exposure: Yes Smoking risk assessment performed?: Yes Alcohol Intake: never Drug use: Never Substance use type: does not use Adopted: No Caregiver/Support person: No Foster care: No Household members: spouse Housing: house Number of Children: 8 number of grandchildren: 15 Communication Needs: None Education Level: college Do you need help understanding health information?: Often Pets and animals: Yes Pets and animals: dog(s) Sexually active: No Do you think of yourself as: straight/heterosexual Current gender identity: female What is your relationship status?: How often do you talk on the phone with friends or family?: once per week How often do you get together with friends or relatives?: once per week How often do you attend confucianist or lutheran services?: 1-3 times per year Do you belong to any clubs or organized social groups?: yes Panel score (0-1 are the most socially isolated patients): 2 What type of physical activity do you participate in: walking Duration: 15-30 minutes/day Pooja/Evangelical: Latter-Day Special pooja needs: No Agree to transfusion: Yes Seatbelt use: always Helmet use: Yes Helmet use: always Drive intox or ride w/intox courtesy driver: No Working smoke detector in home: Yes Carbon monox detector in home: Yes Firearms in home: Yes Firearms unloaded and locked: Yes Do you feel safe at home: Yes Do you feel safe in your relationship?: Yes Would you like helpful sources: No Meds Allergies and Home Medications Allergies Allergy/AdvReac Type Severity Reaction Status Date / Time lisinopril AdvReac Intermediate cough Verified 06/25/24 08:46 hydrocodone bitartrate (From AdvReac Unknown [place] like Verified 06/25/24 08:46 Vicodin) worms were climbing on her legs Penicillins AdvReac Unknown Gets yeast Verified 06/25/24 08:46 infections tetracycline AdvReac per pt. Verified 06/25/24 08:46 I get very bad infections Home Medications ?Medication ?Instructions ?Recorded ?Confirmed ?Type calcium carbonate 1,000 mg-vitamin 1 ea PO DAILY 03/28/17 06/25/24 History D3 20 mcg (800 unit) tablet multivitamin (Daily Multi-Vitamin 1 ea PO DAILY 03/28/17 06/25/24 History tablet) magnesium 250 mg tablet 250 mg PO BID 09/28/19 06/25/24 History carboxymethylcellulose sodium 0.25 1 drp ophthalmic (eye) BID 05/15/20 06/25/24 History % eye drops (TheraTears) methotrexate sodium 2.5 mg tablet 10 mg (4 x 2.5 mg) PO .WEEKLY #75 11/04/22 06/25/24 Rx tabs atorvastatin 40 mg tablet 40 mg PO QHS #90 tabs 10/03/23 06/25/24 Rx folic acid 1 mg tablet 1 mg PO DAILY #90 tabs 10/03/23 06/25/24 Rx losartan 100 mg tablet 100 mg PO HS #90 tabs 10/03/23 06/25/24 Rx potassium chloride 10 mEq 10 - 20 meq (1 - 2 x 10 mEq) PO 12/06/23 06/25/24 Rx capsule,extended release DAILY #180 caps acetaminophen 500 mg tablet 500 mg PO Q6H PRN 06/25/24 06/25/24 History (Tylenol Extra Strength) Exam Const General: cooperative and comfortable Neck Neck: supple Resp Auscultation: clear to auscultation bilaterally Cardio Rate: regular rate Rhythm: regular rhythm GI Palpation: soft and no masses Neuro General: patient alert, patient awake and patient oriented x3 Results Last Vital Signs Temp 36.4 C L 06/25/24 08:54 Pulse 70 06/25/24 08:54 Resp 18 06/25/24 08:54 BP 174/68 H 06/25/24 08:54 Pulse Ox 98 06/25/24 08:54 Time Spent Time spent with Patient: <40 minutes Time was spent: other
[2024-06-25 11:24] VITALS: BMI 27.8
[2024-06-25] MEDS: ceFAZolin 2 GM/50 ML BAG IVPB (12:06)
[2024-06-25] MEDS: BOTULINUM TOXIN TYPE A 100 UNITS, Normal Saline 20 ML IJ (12:19)
[2024-06-25] MEDS: Lidocaine 2% Jelly 11 ML SYR (12:19)
--- NOTE | 2024-06-25 12:23 | W.PM.DSUDISC ---
Date of service: 06/25/24 Time of Service: 12:23 Discharge Plan Disposition Patient Disposition: Home Discharge Details Reason For Visit: cystoscopy with Botox injection Attending Provider: Jonas Farah Primary Care Provider: Kiera Ji Home Meds and New Rx's Prescriptions: No Action TheraTears 0.25 % drops 1 drp ophthalmic (eye) BID folic acid 1 mg tablet 1 mg PO DAILY Qty: 90 4RF losartan 100 mg tablet 100 mg PO HS Qty: 90 4RF atorvastatin 40 mg tablet 40 mg PO QHS Qty: 90 4RF multivitamin [Daily Multi-Vitamin] 1 EACH tablet 1 ea PO DAILY calcium carbonate-vitamin D3 1 EACH tablet 1 ea PO DAILY magnesium 250 mg tablet 250 mg PO BID methotrexate sodium 2.5 mg tablet 10 mg PO .WEEKLY Qty: 75 5RF potassium chloride 10 mEq capsule, extended release 10 - 20 meq PO DAILY Qty: 180 4RF Rx Instructions: take more if advised by JMTunde. acetaminophen [Tylenol Extra Strength] 500 mg tablet 500 mg PO Q6H PRN Discharge Instructions Additional Instructions: call office in 1 week to give us a progress report followup appt 6 months Discharge Orders Discharge Orders: Discharge Order (Routine); Ordered 06/25/24 Ordered By: Jonas Farah DS: Diagnosis Discharge Diagnosis (1) Urinary incontinence: Status: Acute
--- NOTE | 2024-06-25 12:25 | ROE_ITS ---
Date of service: 06/25/24 Time of Service: 12:26 Operative Note Operative Note DATE OF PROCEDURE: 06/25/24 PRE-OP DIAGNOSIS: Overactive bladder POST-OP DIAGNOSIS: same PROCEDURE: Cystoscopy, transurethral injection of Botox into the detrusor muscle SURGEON: Jonas Farah ANESTHESIA TYPE: Local By Surgeon and General:No Airway Refer to Anesthesia Record ESTIMATED BLOOD LOSS: 5 PATHOLOGY: none sent COMPLICATIONS: None Patient was transported to: same day Patient's condition: stable Implants: 100 units of Botox into the detrusor muscle Indications: This is a 78-year-old woman who has a history of mixed urinary incontinence. Her urgency incontinence related to overactive bladder is her most significant symptom. She has failed behavioral modification, pelvic floor physical therapy and oral medications. She presents now for Botox injection into the detrusor muscle Findings: Cystocele Normal bladder mucosa Procedure Description: The patient was given IV antibiotics and brought to the operating room on 06/25/2024. After successful induction of general anesthesia, she was placed in the dorsal lithotomy position. Her genitalia is prepped and draped. Pelvic examination revealed a moderate cystocele. 2% Xylocaine jelly was instilled into the urethra to act as a local anesthetic. A 20 Arabic urethrotome sheath was passed through the urethra into the bladder. We utilized a 30 degree lens to inspect the bladder mucosa. Both ureteral orifices were identified at the base of the bladder. No papillary or nodular lesions were seen. No blood was seen coming from either orifice. Using a transurethral injection system, we injected a total of 100 units of Botox into the detrusor muscle. The Botox was diluted in 20 mL solution. 1 mL was injected in 20 different locations in the bladder. We used a grid pattern of 5 horizontal injection sites and 4 vertical rows. Care was taken to avoid the ureteral orifices and bladder neck. The patient tolerated the procedure well with no complications. She was taken back to the day surgery unit in stable condition.
[2024-06-25 12:30] VITALS: BP 116/73; PULSE 68; RESP 16; TEMP 36.3; O2SAT 97
--- NOTE | 2024-06-25 12:49 | W.ANESPOSTOP ---
Postoperative Evaluation Date, Time and Location Date Performed: 06/25/24 Time Performed: 12:40 Patient Location: Day Surgery Unit Vital Signs Most Recent Imported Vital Signs: Most Recent Vital Signs Temp Pulse Resp BP Pulse Ox 36.3 C L 68 16 116/73 97 06/25/24 12:30 06/25/24 12:30 06/25/24 12:30 06/25/24 12:30 06/25/24 12:30 Pain Score Most Recent Pain Score: Most Recent Pain Score Pain Level 0 06/25/24 12:30 Assessment Mental Status: Awake (Alert & Oriented to Patient Baseline) Airway and Respiratory Function: Patent airway with normal (patient baseline) respiratory exam Cardiovascular Function: Hemodynamically Stable Hydration Status: Adequately Hydrated Nausea & Vomiting: No Nausea or Vomiting Pain: Pt. Denies Any Pain Peripheral Nerve Block: Patient did not receive a nerve block
[2024-06-25 12:55] VITALS: BP 144/59; PULSE 76; RESP 16; TEMP 36.2; O2SAT 96
== END 2024-06-25 13:20 | disposition home or self-care (01) ==
PROVIDERS: PCP Family Medicine; Visit Provider Urology
PROC: (CPT 52287; principal; 2024-06-25 10:00)
DX: N32.81 Overactive bladder (principal); N39.46 Mixed incontinence; R33.8 Other retention of urine; I10 Essential (primary) hypertension; Z86.718 Personal history of other venous thrombosis and embolism
CPT/HCPCS: 52287; J0585; J0690; J2001; J2405; J2704

== ENCOUNTER 2024-08-20 14:51 | Outpatient (CLI) | payer BC, SELFPAY ==
[2024-08-20 15:03] LABS: Abs Immature Grans 0.03 10^3/uL (0.0-0.06); Absolute Basophil Count 0.05 10^3/uL (0.0-0.2); Absolute Eosinophil Count 0.29 10^3/uL (0.0-0.7); Absolute Lymphocyte Count 2.15 10^3/uL (1.2-3.4); Absolute Monocyte Count 0.92 10^3/uL (0.1-0.8); Absolute Neutrophil Count 4.95 10^3/uL (1.2-6.7); Basophils % 0.6 %; Eosinophils % 3.5 %; HCT 40.3 % (36.0-46.0); Immature Grans % 0.4 %; Lymphocytes % 25.6 %; MCH 31.6 pg (27.0-33.0); MCHC 32.3 % (32.0-36.0); MCV 98 fL (80-95); MPV 8.8 fL (8.0-11.0); Neutrophils % 58.9 %; Platelet Count 224 10^3/uL (130-400); RBC 4.12 10^6/uL (3.93-5.22); RDW 13.1 % (11.7-14.6); RDW-SD 46.8 fL; WBC 8.39 10^3/uL (4.4-10.8)
[2024-08-20 15:49] LABS: ALT 25 U/L (14-59); AST 22 U/L (15-37); Albumin 3.5 g/dL (3.4-5.0); Alkaline Phosphatase 103 U/L (46-116); BUN 16 mg/dL (7-18); Bilirubin, Total 0.48 mg/dL (0.2-1.0); Calcium 8.9 mg/dL (8.5-10.1); Chloride 109 mmol/L (98-107); Estimated GFR 57.31 (mL/min/1.73m2); Glucose 85 mg/dL (74-106); Potassium 4.6 mmol/L (3.5-5.1); Sodium 146 mmol/L (136-145); Total Protein 6.9 g/dL (6.4-8.2)
== END 2024-08-20 14:52 | disposition home or self-care (01) ==
LOC: LBO 14:52
PROVIDERS: PCP Family Medicine; Visit Provider Internal Medicine
DX: M06.09 Rheumatoid arthritis without rheumatoid factor, multiple sites (principal)
CPT/HCPCS: 36415; 80053; 85025

== ENCOUNTER 2024-11-01 13:47 | Outpatient (CLI) | payer BC, SELFPAY ==
--- NOTE | 2024-11-01 12:15 | DI.RAD_ITS ---
Exam(s) XR SHOULDER RT COMPLETE 2+V EXAM: XR SHOULDER RT COMPLETE 2+V CLINICAL HISTORY: M25.511, M25.512 BL shoulder pain. TECHNIQUE: 2D digital imaging was performed. COMPARISON: CR XR SHOULDER LT COMPLETE 2+V from 11/01/2024 FINDINGS: Five views No evidence of fracture or dislocation or abnormal soft tissue calcifications in the subacromial spac e. Subacromial space appears unremarkable although there are downgoing osteophytes on both sides of the AC joint evident which may be causing an element of impingement on the rotator cuff mechanism. There are mild degenerative changes in the glenohumeral joint. No subluxation of the humeral head ev ident in the osseous glenoid. Bone density normal. No osseous lesions. On the axial view there is a corticated density anteriorly which probably related to the coracoid process but does not appear ac eyak IMPRESSION: No acute osseous findings in the shoulder. Degenerative changes in the AC joint noted with downgoing osteophytes as described above. DATA REPOSITORY: RADIATION DOSE DELIVERED:
--- NOTE | 2024-11-01 12:15 | DI.RAD_ITS ---
Exam(s) XR SHOULDER LT COMPLETE 2+V EXAM: XR SHOULDER LT COMPLETE 2+V CLINICAL HISTORY: M25.511, M25.512 BL shoulder pain. TECHNIQUE: 2D digital imaging was performed. COMPARISON: CR RIGHT SHOULDER COMPLETE from 05/12/2017 FINDINGS: Five views. No evidence of fracture or dislocation nor abnormal soft tissue calcifications. Subacromial space is not diminished but there are downgoing osteophytes on both sides of the AC joint which may be causin g an element of impingement upon the rotator cuff mechanism at this level. There is some degenerative changes in the glenohumeral joint with mild joint space narrowing and ther e is no osteophyte on the inferior articular surface of the humeral head noted. There is no subluxat ion of the humeral head within the osseous glenoid. No osseous lesions. Bone density normal. IMPRESSION: Degenerative changes in the AC joint, similar to the opposite side. Degenerative changes in the glenohumeral joint. The size of the osteophyte on the inferior articular surface of the humeral head on this side is larger than on the opposite-right side. DATA REPOSITORY: RADIATION DOSE DELIVERED:
== END 2024-11-01 14:07 ==
LOC: DI 13:47
PROVIDERS: PCP Family Medicine; Visit Provider Family Medicine
DX: M25.511 Pain in right shoulder (principal); M25.512 Pain in left shoulder
CPT/HCPCS: 73030

== ENCOUNTER 2024-11-28 02:53 | Outpatient (CLI) | payer OTHER, SELFPAY ==
[2024-11-28 15:04] LABS: Abs Immature Grans 0.03 10^3/uL (0.0-0.06); Absolute Basophil Count 0.06 10^3/uL (0.0-0.2); Absolute Eosinophil Count 0.26 10^3/uL (0.0-0.7); Absolute Lymphocyte Count 2.56 10^3/uL (1.2-3.4); Absolute Monocyte Count 0.85 10^3/uL (0.1-0.8); Basophils % 0.8 %; Eosinophils % 3.3 %; HCT 43.5 % (36.0-46.0); HGB 14.1 g/dL (11.2-15.7); Immature Grans % 0.4 %; Lymphocytes % 32.2 %; MCH 31.5 pg (27.0-33.0); MCHC 32.4 % (32.0-36.0); MCV 97 fL (80-95); MPV 8.8 fL (8.0-11.0); Monocytes % 10.7 %; Neutrophils % 52.6 %; Platelet Count 199 10^3/uL (130-400); RBC 4.47 10^6/uL (3.93-5.22); RDW 13.2 % (11.7-14.6); RDW-SD 46.7 fL; WBC 7.96 10^3/uL (4.4-10.8)
[2024-11-28 15:48] LABS: ALT 25 U/L (14-59); AST 26 U/L (15-37); Albumin 4.1 g/dL (3.4-5.0); Alkaline Phosphatase 100 U/L (46-116); Anion Gap 8.5 mmol/L (3-11); BUN 14 mg/dL (7-18); Bilirubin, Total 0.71 mg/dL (0.2-1.0); CO2 29.5 mmol/L (21.0-32.0); CREATININE 1.3 mg/dL (0.55-1.02); Calcium 9.3 mg/dL (8.5-10.1); Chloride 107 mmol/L (98-107); Estimated GFR 41.83 (mL/min/1.73m2); Glucose 72 mg/dL (74-106); Potassium 3.8 mmol/L (3.5-5.1); Sodium 145 mmol/L (136-145); Total Protein 7.4 g/dL (6.4-8.2)
== END 2024-11-28 02:54 | disposition home or self-care (01) ==
LOC: LBO 02:53
PROVIDERS: PCP Family Medicine; Visit Provider Internal Medicine
DX: M06.09 Rheumatoid arthritis without rheumatoid factor, multiple sites (principal)
CPT/HCPCS: 36415; 80053; 85025

== ENCOUNTER 2025-03-19 01:56 | Outpatient (CLI) | payer OTHER, SELFPAY ==
[2025-03-19 11:34] LABS: Abs Immature Grans 0.09 10^3/uL (0.0-0.06); Absolute Basophil Count 0.03 10^3/uL (0.0-0.2); Absolute Lymphocyte Count 3.16 10^3/uL (1.2-3.4); Absolute Monocyte Count 1.25 10^3/uL (0.1-0.8); Basophils % 0.2 %; Eosinophils % 0.5 %; HCT 40.4 % (36.0-46.0); HGB 13.6 g/dL (11.2-15.7); Immature Grans % 0.6 %; Lymphocytes % 21.2 %; MCH 31.9 pg (27.0-33.0); MCHC 33.7 % (32.0-36.0); MCV 95 fL (80-95); MPV 8.9 fL (8.0-11.0); Monocytes % 8.4 %; Neutrophils % 69.1 %; Platelet Count 258 10^3/uL (130-400); RBC 4.27 10^6/uL (3.93-5.22); RDW 13.6 % (11.7-14.6); RDW-SD 47.2 fL
[2025-03-19 11:36] LABS: Absolute Eosinophil Count 0.07 10^3/uL (0.0-0.7); ESR 4 mm/hr (0-30)
[2025-03-19 12:23] LABS: ALT 29 U/L (14-59); AST 21 U/L (15-37); Albumin 3.9 g/dL (3.4-5.0); Alkaline Phosphatase 93 U/L (46-116); Anion Gap 8.5 mmol/L (3-11); BUN 36 mg/dL (7-18); Bilirubin, Total 0.7 mg/dL (0.2-1.0); CO2 27.5 mmol/L (21.0-32.0); CREATININE 1.1 mg/dL (0.55-1.02); Calcium 9.5 mg/dL (8.5-10.1); Chloride 103 mmol/L (98-107); Estimated GFR 51.11 (mL/min/1.73m2); Glucose 105 mg/dL (74-106); Potassium 3.8 mmol/L (3.5-5.1); Sodium 139 mmol/L (136-145); Total Protein 6.9 g/dL (6.4-8.2)
[2025-03-19 12:27] LABS: Calculated LDL 54 mg/dL (<100); Cholesterol 149 mg/dL (<200); HDL Cholesterol 62 mg/dL (>or=50); Triglyceride 167 mg/dL (<150)
[2025-03-19 12:38] LABS: C-Reactive Protein < 0.50 mg/dL (<or=0.5); LDH 222 U/L (81-234)
[2025-03-19 13:01] LABS: Magnesium 2.3 mg/dL (1.8-2.4); Vitamin D 25 Total 61 ng/mL (30-100)
[2025-03-20 14:02] LABS: Albumin 62.6 % (55.8-66.1); Total Protein 6.4 g/dL (6.3-8.2)
== END 2025-03-19 01:57 | disposition home or self-care (01) ==
LOC: LBO 01:56
PROVIDERS: Internal Medicine; PCP Family Medicine; Visit Provider Family Medicine
DX: E55.9 Vitamin D deficiency, unspecified (principal); I10 Essential (primary) hypertension; M06.09 Rheumatoid arthritis without rheumatoid factor, multiple sites
CPT/HCPCS: 36415; 80053; 80061; 82306; 85652; 83615; 83735; 84165; 85025; 86140

== ENCOUNTER 2025-04-22 05:57 | Day surgery (SDC) | payer OTHER, SELFPAY ==
[2025-04-22 06:10] VITALS: BP 179/84; PULSE 75; RESP 16; TEMP 36.3; O2SAT 98
--- NOTE | 2025-04-22 06:48 | W.ANESPRE ---
General Info Date of Service Date Performed: 04/22/25 Height: 5 ft 1.5 in Weight: 70.125 kg Body Mass Index (BMI): 28.7 Surgical Procedure: Operation Date: 04/22/25 07:40 Proposed Procedure Side Surgeon p Cystoscopy/Injection of Botox Jonas Farah MD Actual Procedure Side Surgeon p Cystoscopy/Injection of Botox Jonas Farah MD Pre-Op Diagnosis Post-Op Diagnosis Urinary incontinence Meds Allergies and Home Medications Allergies Allergy/AdvReac Type Severity Reaction Status Date / Time lisinopril AdvReac Intermediate cough Verified 04/22/25 06:29 hydrocodone bitartrate (From AdvReac Unknown [place] like Verified 04/22/25 06:29 Vicodin) worms were climbing on her legs Penicillins AdvReac Unknown Gets yeast Verified 04/22/25 06:29 infections tetracycline AdvReac per pt. Verified 04/22/25 06:29 I get very bad infections Home Medication ?Medication ?Instructions ?Recorded calcium 1,000 mg (as 1 ea PO DAILY 03/28/17 carbonate)-vitamin D3 20 mcg (800 unit) tablet multivitamin (Daily Multi-Vitamin 1 ea PO DAILY 03/28/17 tablet) magnesium 250 mg tablet 250 mg PO BID 09/28/19 carboxymethylcellulose sodium 0.25 1 drp ophthalmic (eye) BID 05/15/20 % eye drops (TheraTears) acetaminophen 500 mg tablet 500 mg PO Q6H PRN 06/25/24 (Tylenol Extra Strength) atorvastatin 40 mg tablet 40 mg PO QHS #90 tabs 11/01/24 folic acid 1 mg tablet 1 mg PO DAILY #90 tabs 11/01/24 methotrexate sodium 2.5 mg tablet 10 mg (4 x 2.5 mg) PO .WEEKLY #75 11/01/24 tabs losartan 100 mg tablet 100 mg PO HS #90 tabs 11/21/24 prednisone 10 mg tablet 10 mg PO DAILY 04/19/25 potassium chloride 10 mEq 10 - 20 meq PO BID 04/22/25 capsule,extended release Current Visit Medications: Current Medications Generic Name Dose Route Start Last Admin Trade Name Freq PRN Reason Stop Dose Admin OnabotulinumtoxinA 100 units/ 0 units 04/22/25 06:00 Sodium Chloride 10 ml IJ 04/22/25 23:59 DIRECTED TICO Ringer's Solution 1,000 mls @ 80 mls/hr 04/22/25 06:00 IV 04/22/25 23:59 INFUSION [facility] IV Miscellaneous Supplies 1 each 04/22/25 06:00 Iv Access IV 04/22/25 23:59 DIRECTED TICO Sodium Chloride 0 ml 04/22/25 06:00 Normal Saline Flush 10 Ml Syr IV 04/22/25 23:59 PRN PRN Sodium Chloride 0 ml 04/22/25 06:00 Normal Saline 10 Ml Vial IJ 04/22/25 23:59 DIRECTED PRN Sterile Water 0 ml 04/22/25 06:00 Water,Injection,Sterile 10 Ml Vial IJ 04/22/25 23:59 DIRECTED PRN Trimethoprim/Sulfamethoxazole 1 tab 04/22/25 06:00 Sulfameth/Trimeth Ds Tab PO 04/22/25 23:59 PREOP TICO PFSH Active Problems Active Problems: Problem Status Onset Code Arthritis of both glenohumeral joints Acute M19.011, M19.012 Bilateral shoulder pain Acute M25.511, M25.512 Asymmetrical sensorineural hearing loss Acute H90.3 Cerumen impaction Acute H61.20 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 Eye abnormality Acute Q15.9 Memory changes Acute R41.3 Urinary incontinence Acute R32 Deep vein thrombosis (DVT) of lower extremity Acute 08/29/17 I82.409 Diverticulosis Chronic K57.90 Hypertension Chronic I10 Lumbar stenosis with neurogenic claudication Chronic 05/03/17 M48.062 Osteopenia Chronic M85.80 Vitamin D deficiency Chronic 05/31/17 E55.9 Medical History Medical History Hypokalemia Edema, peripheral Right rotator cuff tendonitis Degenerative joint disease of right hip Impacted cerumen of both ears Bilateral edema of lower extremity (04/01/17) Overweight Pain in posterior left lower extremity (07/06/17) Skin sensation disturbance Disturbance of skin sensation Overweight Pain in posterior left lower extremity 07/06/17 DVT of lower extremity (deep venous thrombosis) 08/29/17 Cough due to JONNY inhibitor 10/24/17 Knee pain, bilateral Family history of diabetes mellitus Hyperlipidemia Pain in right shoulder Polymyalgia rheumatica Pronation of both feet (07/03/18) Sciatica, right side Urge incontinence Surgical History Surgical History History of nasal surgery Nasal Reconstruction due to breathing issues History of bilateral total hip arthroplasty (06/11/20) History of cataract surgery Bilateral cataract 05/2020 Nuclear sclerotic cataract of right eye Nuclear sclerotic cataract of left eye s/p cataract VAGINAL 1965 1967 1972 Sinus Endoscopy resulting in all teeth being pulled Pyoderma and Abcesses Open Carpal Tunnel release 06/09/17 B/L;DR. MEJIA 10/31/17 B/L; DR. MEJIA Left ankle fracture 2003 Tobacco Smoking/Tobacco Use Status: Never Passive smoking exposure: Yes Second hand exposure: Yes Alcohol Alcohol Intake: never Substance Use Substance use: Never Substance use type: does not use Vital Signs and Lab Results Vital Signs Most Recent Vital Signs in EMR: Most Recent Vital Signs Temp Pulse Resp BP Pulse Ox 36.3 C L 75 16 179/84 H 98 04/22/25 06:10 04/22/25 06:10 04/22/25 06:10 04/22/25 06:10 04/22/25 06:10 Lab Results Blood Type / Crossmatch: No Data to Display Complete Blood Count: No Data to Display Complete Metabolic Panel: No Data to Display Liver Function Panel: No Data to Display Coagulation Panel: No Data to Display Cardiac Panel: No Data to Display Arterial Blood Gas: No Data to Display Venous Blood Gas: No Data to Display Pancreas Panel: No Data to Display Thyroid Panel: No Data to Display Infectious Disease: No Data to Display Blood Cultures: No Data to Display Toxicology Panel: No Data to Display Imaging and Studies Imaging and Studies Study information below may be from another EMR and interpreted by another provider. Please see original notes in EMR for more complete details. Echocardiogram Summary: 04/19/2017: Summary: 1. Left ventricle: The cavity size was normal. There was mild focal basal hypertrophy of the septum. Systolic function was normal. The estimated ejection fraction was 55-60%. Wall motion was normal; there were no regional wall motion abnormalities. 2. Right ventricle: The cavity size was normal. Systolic function was normal. 3. Mitral valve: There was mild regurgitation. 4. Pulmonary arteries: Pulmonary systolic pressure was within the normal range, in the range of 25mm Hg to 30mm Hg. 5. Inferior vena cava: The vessel was normal in size. The respirophasic diameter changes were in the normal range (greater than or equal to 50%), consistent with normal central venous pressure. Anesthesia Assessment and Plan Anesthesia History Personal History: No History of Anesthesia Complications Family History: No Family History of Anesthesia Complications Exercise Tolerance Exercise Tolerance: Metabolic Equivalents>4 Pertinent Negatives Pertinent Negatives: No Symptoms of GERD Cardiac & Pulmonary Exam Cardiac Exam: Normal S1/S2 Heart Sounds Pulmonary Exam: Clear Bilateral Breath Sounds Implantable Cardiac Device Does patient have a Pacemaker or an ICD?: No Airway Exam Known Difficult Airway: No Mallampati Class: 2 Mouth Opening: Normal (> 3cm) Thyromental Distance: Less than 3 cm Neck Range of Motion: Full ROM Neck Circumference: Normal Teeth Condition: Removable Dentures/Plates Upper and Removable Dentures/Plates Lower ASA Classification ASA Score: ASA 2 Emergency Case?: No NPO Status NPO Status: NPO Clears >2 hours, Solids >8 hours Anesthesia Plan Resuscitation Status: Full Code Anesthesia Technique: General Anesthesia Airway Planned: Natural Airway Monitors Used: Standard Monitors
[2025-04-22 06:49] VITALS: BMI 28.7
--- NOTE | 2025-04-22 06:55 | W.PM.HP.N ---
Date of service: 04/22/25 Time of Service: 06:55 Assessment and Plan Assessment and plan (1) Urinary incontinence: Status: Acute Assessment and plan: She has mixed urinary incontinence, but the urgency component (due to overactive bladder) is the most bothersome for her. 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 History of Present Illness History of Present Illness Chief Complaint: Overactive bladder Narrative: This is a 79-year-old woman who has a history of mixed urinary incontinence. Her urgency incontinence which is due to an overactive bladder is most bothersome for her. 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 Her last injection was over 6 months ago. As her symptoms have progressed, she is interested in a repeat injection. She is not having any dysuria or gross hematuria. Review of Systems Narrative: No fevers or chills Decreased hearing acuity. No dysphasia No diabetes or thyroid dysfunction No shortness of breath, cough or hemoptysis No chest pain or palpitations No nausea, vomiting, hepatitis, ulcers, jaundice, diarrhea or constipation No seizures, strokes or peripheral neuropathy Hx DVT. No bleeding disorders or anemia No gout PFSH All Active Problems Arthritis of both glenohumeral joints (Acute) POCUS INJECTION 12/28/24 Bilateral shoulder pain (Acute) Asymmetrical sensorineural hearing loss (Acute) Cerumen impaction (Acute) Grief (Chronic) Eye abnormality (Acute) Memory changes (Acute) MMSE 29/30 Urinary incontinence (Acute) Deep vein thrombosis (DVT) of lower extremity (Acute 08/29/17) Left leg - 3 years ago Diverticulosis (Chronic) Hypertension (Chronic) Lumbar stenosis with neurogenic claudication (Chronic 05/03/17) Osteopenia (Chronic) report says oateoporosis but the numbers are osteopenia Vitamin D deficiency (Chronic 05/31/17) Medical History Hypokalemia Edema, peripheral Right rotator cuff tendonitis Degenerative joint disease of right hip Impacted cerumen of both ears Bilateral edema of lower extremity (04/01/17) Overweight Pain in posterior left lower extremity (07/06/17) Skin sensation disturbance Disturbance of skin sensation Overweight Pain in posterior left lower extremity 07/06/17 DVT of lower extremity (deep venous thrombosis) 08/29/17 Cough due to JONNY inhibitor 10/24/17 Knee pain, bilateral Family history of diabetes mellitus Hyperlipidemia Pain in right shoulder Polymyalgia rheumatica Pronation of both feet (07/03/18) Sciatica, right side Urge incontinence Surgical History History of nasal surgery Nasal Reconstruction due to breathing issues History of bilateral total hip arthroplasty (06/11/20) History of cataract surgery Bilateral cataract 05/2020 Nuclear sclerotic cataract of right eye Nuclear sclerotic cataract of left eye s/p cataract VAGINAL 1965 1967 1972 Sinus Endoscopy resulting in all teeth being pulled Pyoderma and Abcesses Open Carpal Tunnel release 06/09/17 B/L;DR. MEJIA 10/31/17 B/L; DR. MEJIA Left ankle fracture 2003 Family History (Updated 11/01/24 @ 11:26 by Pinky Coffey) Mother , age 57 Diabetes Heart disease Hyperlipidemia Stroke Hypertension Sister Diabetes Heart disease Hyperlipidemia Breast cancer Sister Diabetes Breast cancer Heart disease Hyperlipidemia Brother Diabetes Myocardial infarction Lozano's lung Heart disease Hypertension Brother Diabetes Myocardial infarction Heart disease Hyperlipidemia Maternal Aunt Breast cancer FAMILY HISTORY Essential hypertension Father , age 82 Heart disease Myocardial infarction Diabetes Stroke Hyperlipidemia Hypertension Son No problems noted. Son No problems noted. Daughter No problems noted. Maternal Grandmother No problems noted. Maternal Grandfather No problems noted. Paternal Grandmother No problems noted. Paternal Grandfather No problems noted. 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[employer] Pets and animals: Yes Pets and animals: dog(s) Sexually active: No Do you think of yourself as: straight/heterosexual Current gender identity: female What is your relationship status?: How often do you talk on the phone with friends or family?: twice per week How often do you get together with friends or relatives?: once per week How often do you attend faith or nondenominational services?: 1-3 times per year Do you belong to any clubs or organized social groups?: yes Panel score (0-1 are the most socially isolated patients): 3 What type of physical activity do you participate in: walking and regular exercise Duration: 30-45 minutes/day Frequency: daily Pooja/Scientologist: Zoroastrian Special pooja needs: No Agree to transfusion: Yes Seatbelt use: always Helmet use: Yes Helmet use: always Drive intox or ride w/intox car pick up driver: No Working smoke detector in home: Yes Carbon monox detector in home: Yes Firearms in home: Yes Firearms unloaded and locked: Yes Do you feel safe at home: Yes Do you feel safe in your relationship?: Yes Victim of physical abuse: No Victim of emotional abuse: No Victim of sexual abuse: No Would you like helpful sources: No Meds Allergies and Home Medications Allergies Allergy/AdvReac Type Severity Reaction Status Date / Time lisinopril AdvReac Intermediate cough Verified 04/22/25 06:29 hydrocodone bitartrate (From AdvReac Unknown [place] like Verified 04/22/25 06:29 Vicodin) worms were climbing on her legs Penicillins AdvReac Unknown Gets yeast Verified 04/22/25 06:29 infections tetracycline AdvReac per pt. Verified 04/22/25 06:29 I get very bad infections Home Medications ?Medication ?Instructions ?Recorded ?Confirmed ?Type calcium 1,000 mg (as 1 ea PO DAILY 03/28/17 04/22/25 History carbonate)-vitamin D3 20 mcg (800 unit) tablet multivitamin (Daily Multi-Vitamin 1 ea PO DAILY 03/28/17 04/22/25 History tablet) magnesium 250 mg tablet 250 mg PO BID 09/28/19 04/22/25 History carboxymethylcellulose sodium 0.25 1 drp ophthalmic (eye) BID 05/15/20 04/22/25 History % eye drops (TheraTears) acetaminophen 500 mg tablet 500 mg PO Q6H PRN 06/25/24 04/22/25 History (Tylenol Extra Strength) atorvastatin 40 mg tablet 40 mg PO QHS #90 tabs 11/01/24 04/22/25 Rx folic acid 1 mg tablet 1 mg PO DAILY #90 tabs 11/01/24 04/22/25 Rx methotrexate sodium 2.5 mg tablet 10 mg (4 x 2.5 mg) PO .WEEKLY #75 11/01/24 04/22/25 Rx tabs losartan 100 mg tablet 100 mg PO HS #90 tabs 11/21/24 04/22/25 Rx prednisone 10 mg tablet 10 mg PO DAILY 04/19/25 04/22/25 History potassium chloride 10 mEq 10 - 20 meq PO BID 04/22/25 04/22/25 History capsule,extended release Exam Const General: cooperative Neck Neck: supple Resp Effort & Inspection: normal respiratory effort Auscultation: clear to auscultation bilaterally Cardio Rate: regular rate Rhythm: regular rhythm GI Inspection: normal to inspection Palpation: soft Neuro General: patient alert, patient awake and patient oriented x3 Results Last Vital Signs Temp 36.3 C L 04/22/25 06:10 Pulse 75 04/22/25 06:10 Resp 16 04/22/25 06:10 BP 179/84 H 04/22/25 06:10 Pulse Ox 98 04/22/25 06:10 Time Spent Time spent with Patient: <40 minutes Time was spent: preparing to see the patient(eg.review tests) and care coordination
[2025-04-22] MEDS: Sulfameth/Trimeth DS TAB 1 TAB PO (06:57)
[2025-04-22] MEDS: Lactated Ringers 1,000 ML 80 ML IV (07:15)
[2025-04-22] MEDS: [UNRECOGNIZED DRUG - OTHER] IJ (07:47)
[2025-04-22] MEDS: Lidocaine 2% Jelly 6 ML SYR (07:47)
[2025-04-22] MEDS: NORMAL SALINE IJ (07:47)
--- NOTE | 2025-04-22 07:57 | W.PM.DSUDISC ---
Date of service: 04/22/25 Discharge Plan Disposition Patient Disposition: Home Condition: Stable Discharge Details Reason For Visit: cystoscopy with Botox injection Attending Provider: Jonas Farah Primary Care Provider: Kiera Ji Home Meds and New Rx's Prescriptions: No Action TheraTears 0.25 % drops 1 drp ophthalmic (eye) BID methotrexate sodium 2.5 mg tablet 10 mg PO .WEEKLY Qty: 75 5RF atorvastatin 40 mg tablet 40 mg PO QHS Qty: 90 4RF folic acid 1 mg tablet 1 mg PO DAILY Qty: 90 4RF multivitamin [Daily Multi-Vitamin] 1 EACH tablet 1 ea PO DAILY calcium carbonate-vitamin D3 1 EACH tablet 1 ea PO DAILY magnesium 250 mg tablet 250 mg PO BID losartan 100 mg tablet 100 mg PO HS Qty: 90 4RF acetaminophen [Tylenol Extra Strength] 500 mg tablet 500 mg PO Q6H PRN prednisone 10 mg tablet 10 mg PO DAILY Patient Comments: TAKE 3 TABLETS BY MOUTH DAILY FOR 3 DAYS THEN 2 TABLETS DAILY FOR 3 DAYS THEN 1 TABLET DAILY FOR 3 DAYS potassium chloride 10 mEq capsule, extended release 10 - 20 meq PO BID Rx Instructions: take more if advised by JMTunde. Discharge Instructions Additional Instructions: call 1 week to give us a prgress report about symptoms followup appt 6 months Activity:: Activity as Tolerated Shower/Bathe:: 24 hours Diet:: As Tolerated Discharge Orders Discharge Orders: Discharge Order (Routine); Ordered 04/22/25 Ordered By: Jonas Farah DS: Diagnosis Discharge Diagnosis (1) Urinary incontinence: Status: Acute
--- NOTE | 2025-04-22 07:59 | ROE_ITS ---
Operative Note Operative Note PRE-OP DIAGNOSIS: Urgency Incontinence due to overactive bladder POST-OP DIAGNOSIS: same PROCEDURE: cystoscopy with transurethral injection of Botox into detrusor muscle SURGEON: Jonas Farah ANESTHESIA TYPE: Local By Surgeon and General:No Airway Refer to Anesthesia Record ESTIMATED BLOOD LOSS: 5 PATHOLOGY: none sent COMPLICATIONS: None Patient was transported to: same day Patient's condition: stable Implants: 100 Units Botox (no waste) Indications: This is a 79-year-old woman who has a history of mixed urinary incontinence. The urgency incontinence component has been the most bothersome for her. The urgency incontinence is related to an overactive bladder rather than a neurologic condition. She presents for repeat injection of Botox into the detrusor muscle. She has had benefit from previous injections and the last injection was over 6 months ago. Findings: Normal-appearing bladder Procedure Description: The patient was given a dose of oral antibiotics and brought to the operating room on 04/22/2025. After successful induction of general anesthesia, she was placed in the dorsal lithotomy position. Her genitalia was prepped and draped. 2% Xylocaine jelly was instilled into the urethra. The pelvic examination was performed and pelvic prolapse was identified. The prolapse seen to include both the anterior and posterior compartments. The degree of prolapse was out to the vaginal introitus. A 20 Portuguese urethrotome sheath was passed through the urethra into the bladder. The bladder was inspected using a 30 degree lens. Both ureteral orifices appeared normal with no blood coming from either side. The bladder appeared smooth-walled with no papillary or nodular lesions. Using a transurethral injection system, we injected a total of 100 units of Botox into the detrusor muscle. We used a grid pattern of 5 vertical rows and 4 horizontal rows to inject the Botox. We had mixed the 100 units of Botox in 10 mL of dilute and so we injected 0.5 mL in each of the 20 injection sites. We avoided both the trigone and the bladder neck with our injections. The patient tolerated the procedure well with no complications. She was taken back to the day surgery unit in stable condition. Date of Procedure: 04/22/25
[2025-04-22 08:05] VITALS: BP 96/51; PULSE 64; RESP 20; TEMP 36.3; O2SAT 94
--- NOTE | 2025-04-22 08:11 | W.ANESPOSTOP ---
Postoperative Evaluation Date, Time and Location Date Performed: 04/22/25 Time Performed: 08:11 Patient Location: Day Surgery Unit Vital Signs Most Recent Imported Vital Signs: Most Recent Vital Signs Temp Pulse Resp BP Pulse Ox 36.3 C L 75 16 179/84 H 98 04/22/25 06:10 04/22/25 06:10 04/22/25 06:10 04/22/25 06:10 04/22/25 06:10 Pain Score Most Recent Pain Score: Most Recent Pain Score Pain Level 0 04/22/25 06:10 Assessment Mental Status: Awake (Alert & Oriented to Patient Baseline) Airway and Respiratory Function: Patent airway with normal (patient baseline) respiratory exam Cardiovascular Function: Hemodynamically Stable Hydration Status: Adequately Hydrated Nausea & Vomiting: No Nausea or Vomiting Pain: Pt. Denies Any Pain Peripheral Nerve Block: Patient did not receive a nerve block
[2025-04-22 08:31] VITALS: BP 113/76; PULSE 67; RESP 18; TEMP 36.1; O2SAT 97
[2025-04-22] MEDS: Phenazopyridine 200 MG TAB PO (08:35)
== END 2025-04-22 09:15 | disposition home or self-care (01) ==
PROVIDERS: PCP Family Medicine; Visit Provider Urology
PROC: (CPT 52287; principal; 2025-04-22 07:30)
DX: N32.81 Overactive bladder (principal); N39.46 Mixed incontinence; Z79.899 Other long term (current) drug therapy; Z86.718 Personal history of other venous thrombosis and embolism; Z79.01 Long term (current) use of anticoagulants; I10 Essential (primary) hypertension
CPT/HCPCS: 52287; J0585; J2003; J2704

== ENCOUNTER 2025-05-29 01:28 | Outpatient (CLI) | payer OTHER, SELFPAY ==
--- NOTE | 2025-05-29 07:15 | DI.RAD_ITS ---
Exam(s) RF BARIUM SWALLOW EXAM: RF BARIUM SWALLOW CLINICAL HISTORY: difficulty swallowing,dysphagia,r13.10 TECHNIQUE: 2D and realtime digital imaging was performed. CONTRAST MATERIAL: Oral barium contrast was administered. COMPARISON: CR CHEST 2 VIEWS PA,LAT from 09/09/2017 FINDINGS: CHEST X-RAY: The heart and pulmonary vasculature are within normal limits. The lungs are clear. No pleural effusion or pneumothorax is present. The bones are within normal limits for the patient's age. Age-appropriate degenerative changes are seen in the cervical spine. ESOPHAGRAM: The esophagus is patent with no evidence for erosions, fold thickening, strictures, or masses. With regards to the motility, there is a normal primary stripping wave. No tertiary contractions were noted. There is a small hiatal hernia present. There is a small amount of gastroesophageal reflux that occurred during the examination. There is also small amount of aspiration that occurred during the examination. IMPRESSION: 1. There is a small hiatal hernia and mild amount of gastroesophageal reflux that occurred during the examination. 2. Small amount of aspiration that occurred once during the examination. RADIATION DOSE DELIVERED: femi Bahena=15.5 mGy
== END 2025-05-29 01:48 ==
LOC: DI 01:28
PROVIDERS: PCP Family Medicine; Visit Provider Family Medicine
DX: R13.10 Dysphagia, unspecified (principal); K21.9 Gastro-esophageal reflux disease without esophagitis
CPT/HCPCS: 74221

== ENCOUNTER 2025-07-26 15:00 | Outpatient (CLI) | payer OTHER, SELFPAY ==
[2025-07-26 14:50] LABS: Abs Immature Grans 0.03 10^3/uL (0.0-0.06); HCT 37.8 % (36.0-46.0); HGB 12.5 g/dL (11.2-15.7); Immature Grans % 0.5 %; MCH 31.6 pg (27.0-33.0); MCHC 33.1 % (32.0-36.0); MCV 96 fL (80-95); MPV 8.5 fL (8.0-11.0); Platelet Count 195 10^3/uL (130-400); RBC 3.95 10^6/uL (3.93-5.22); RDW 14.0 % (11.7-14.6); RDW-SD 48.4 fL; WBC 6.39 10^3/uL (4.4-10.8)
[2025-07-26 14:58] LABS: ESR 5 mm/hr (0-30)
[2025-07-26 16:15] LABS: ALT 28 U/L (14-59); AST 25 U/L (15-37); Albumin 3.6 g/dL (3.4-5.0); Alkaline Phosphatase 97 U/L (46-116); Anion Gap 5.0 mmol/L (3-11); BUN 21 mg/dL (7-18); Bilirubin, Total 0.6 mg/dL (0.2-1.0); CO2 29.0 mmol/L (21.0-32.0); Calcium 9.2 mg/dL (8.5-10.1); Chloride 109 mmol/L (98-107); Estimated GFR 46.05 (mL/min/1.73m2); Glucose 83 mg/dL (74-106); LDH 299 U/L (81-234); Potassium 4.3 mmol/L (3.5-5.1); Sodium 143 mmol/L (136-145); Total Protein 6.5 g/dL (6.4-8.2)
[2025-07-26 16:19] LABS: C-Reactive Protein < 0.50 mg/dL (<or=0.5)
== END 2025-07-26 15:01 | disposition home or self-care (01) ==
LOC: LBO 15:00
PROVIDERS: PCP Family Medicine; Visit Provider Internal Medicine
DX: M06.09 Rheumatoid arthritis without rheumatoid factor, multiple sites (principal)
CPT/HCPCS: 36415; 80053; 85652; 83615; 85025; 86140

== ENCOUNTER 2025-10-25 15:28 | Outpatient (CLI) | payer OTHER, SELFPAY ==
[2025-10-25 14:32] LABS: HCT 40.3 % (36.0-46.0); HGB 13.1 g/dL (11.2-15.7); MCH 31.7 pg (27.0-33.0); MCHC 32.5 % (32.0-36.0); MCV 98 fL (80-95); MPV 8.7 fL (8.0-11.0); Platelet Count 212 10^3/uL (130-400); RBC 4.13 10^6/uL (3.93-5.22); RDW 14.1 % (11.7-14.6); RDW-SD 49.8 fL; WBC 11.88 10^3/uL (4.4-10.8)
[2025-10-25 15:59] LABS: Cholesterol 146 mg/dL (<200); HDL Cholesterol 65 mg/dL (>40)
[2025-10-25 16:13] LABS: ALT 27 U/L (10-49); AST 30 U/L (<34); Albumin 4.2 g/dL (3.2-5.0); Alkaline Phosphatase 83 U/L (46-116); Anion Gap 10.5 mmol/L (3-11); BUN 19 mg/dL (9-23); Bilirubin, Total 0.4 mg/dL (0.2-1.2); CO2 22.5 mmol/L (20.0-31.0); Calcium 8.9 mg/dL (8.3-10.6); Chloride 112 mmol/L (98-107); Glucose 104 mg/dL (74-106); Potassium 4.5 mmol/L (3.5-5.1); Sodium 145 mmol/L (136-145); Total Protein 6.6 g/dL (5.7-8.2)
[2025-10-25 20:16] LABS: C-Reactive Protein < 0.50 mg/dL (<=0.50)
== END 2025-10-25 15:29 | disposition home or self-care (01) ==
LOC: LBO 15:28
PROVIDERS: PCP Family Medicine; Visit Provider Internal Medicine
DX: I10 Essential (primary) hypertension (principal); R13.10 Dysphagia, unspecified; M35.3 Polymyalgia rheumatica; M06.09 Rheumatoid arthritis without rheumatoid factor, multiple sites
CPT/HCPCS: 80053; 80061; 85027; 86140

== ENCOUNTER 2025-11-04 08:02 | Day surgery (SDC) | payer OTHER, SELFPAY ==
[2025-11-04 08:05] VITALS: BP 143/79; PULSE 103; RESP 18; TEMP 36.2; O2SAT 96
[2025-11-04] MEDS: Lactated Ringers 1,000 ML 80 ML IV (08:40)
[2025-11-04] MEDS: Sulfameth/Trimeth DS TAB 1 TAB PO (09:09)
--- NOTE | 2025-11-04 10:11 | W.PM.HP.N ---
Date of service: 11/04/25 Time of Service: 10:11 Assessment and Plan Assessment and plan (1) Urinary incontinence: Status: Acute (2) Overactive bladder: Status: Acute Assessment and plan: We will plan to repeat her injection of Botox into the detrusor muscle History of Present Illness History of Present Illness Chief Complaint: Urgency Incontinence due to overactive bladder Narrative: This is a 80-year-old woman who has a history of mixed urgency and stress urinary incontinence. The urgency incontinence was most bothersome for her. She failed behavioral modification and oral medications. She was treated with an injection of Botox into the detrusor muscle over 6 months ago. She noticed an improvement in her frequency, urgency and incontinence following the procedure. She had no adverse reactions. She has noticed progressive symptoms including incontinence, so she presents for repeat Botox injection. She has no episodes of retention. She has no dysuria or gross hematuria. Review of Systems Narrative: No fevers or chills Decreased hearing acuity. No vision change No diabetes or thyroid dysfunction No shortness of breath or hemoptysis No chest pain or palpitations GERD. No hepatitis, ulcers, jaundice No seizures, strokes or peripheral neuropathy Hx DVT. No bleeding disorders or anemia No gout PFSH All Active Problems (Updated 11/04/25 @ 10:16 by Jonas Farah MD) Overactive bladder (Acute) GERD (gastroesophageal reflux disease) (Chronic) Aspiration into respiratory tract (Acute) Difficulty swallowing (Acute) Arthritis of both glenohumeral joints (Acute) POCUS INJECTION 12/28/24 Bilateral shoulder pain (Acute) Asymmetrical sensorineural hearing loss (Acute) Cerumen impaction (Acute) Grief (Chronic) Eye abnormality (Acute) Memory changes (Acute) MMSE 29/30 Urinary incontinence (Acute) Deep vein thrombosis (DVT) of lower extremity (Acute 08/29/17) Left leg - 3 years ago Diverticulosis (Chronic) Hypertension (Chronic) Lumbar stenosis with neurogenic claudication (Chronic 05/03/17) Osteopenia (Chronic) report says oateoporosis but the numbers are osteopenia Vitamin D deficiency (Chronic 05/31/17) Medical History (Updated 11/04/25 @ 10:16 by Jonas Farah MD) Hypokalemia Edema, peripheral Right rotator cuff tendonitis Degenerative joint disease of right hip Impacted cerumen of both ears Bilateral edema of lower extremity (04/01/17) Overweight Pain in posterior left lower extremity (07/06/17) Skin sensation disturbance Disturbance of skin sensation Overweight Pain in posterior left lower extremity 07/06/17 DVT of lower extremity (deep venous thrombosis) 08/29/17 Cough due to JONNY inhibitor 10/24/17 Knee pain, bilateral Family history of diabetes mellitus Hyperlipidemia Pain in right shoulder Polymyalgia rheumatica Pronation of both feet (07/03/18) Sciatica, right side Urge incontinence Surgical History History of nasal surgery Nasal Reconstruction due to breathing issues History of bilateral total hip arthroplasty (06/11/20) History of cataract surgery Bilateral cataract 05/2020 Nuclear sclerotic cataract of right eye Nuclear sclerotic cataract of left eye s/p cataract VAGINAL 1965 1967 1972 Sinus Endoscopy resulting in all teeth being pulled Pyoderma and Abcesses Open Carpal Tunnel release 06/09/17 B/L;DR. MEJIA 10/31/17 B/L; DR. MEJIA Left ankle fracture 2003 Family History (Updated 11/01/24 @ 11:26 by Pinky Coffey) Mother , age 57 Diabetes Heart disease Hyperlipidemia Stroke Hypertension Sister Diabetes Heart disease Hyperlipidemia Breast cancer Sister Diabetes Breast cancer Heart disease Hyperlipidemia Brother Diabetes Myocardial infarction Lozano's lung Heart disease Hypertension Brother Diabetes Myocardial infarction Heart disease Hyperlipidemia Maternal Aunt Breast cancer FAMILY HISTORY Essential hypertension Father , age 82 Heart disease Myocardial infarction Diabetes Stroke Hyperlipidemia Hypertension Son No problems noted. Son No problems noted. Daughter No problems noted. Maternal Grandmother No problems noted. Maternal Grandfather No problems noted. Paternal Grandmother No problems noted. Paternal Grandfather No problems noted. 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[employer] Pets and animals: Yes Pets and animals: dog(s) Sexually active: No Do you think of yourself as: straight/heterosexual Current gender identity: female What is your relationship status?: How often do you talk on the phone with friends or family?: twice per week How often do you get together with friends or relatives?: once per week How often do you attend mormonism or shinto services?: 1-3 times per year Do you belong to any clubs or organized social groups?: yes Panel score (0-1 are the most socially isolated patients): 3 What type of physical activity do you participate in: walking and regular exercise Duration: 30-45 minutes/day Frequency: daily Pooja/Pentecostalism: Judaism Special pooja needs: No Agree to transfusion: Yes Seatbelt use: always Helmet use: Yes Helmet use: always Drive intox or ride w/intox oil truck driver: No Working smoke detector in home: Yes Carbon monox detector in home: Yes Firearms in home: Yes Firearms unloaded and locked: Yes Do you feel safe at home: Yes Do you feel safe in your relationship?: Yes Victim of physical abuse: No Victim of emotional abuse: No Victim of sexual abuse: No Would you like helpful sources: No Meds Allergies and Home Medications Allergies Allergy/AdvReac Type Severity Reaction Status Date / Time lisinopril AdvReac Intermediate cough Verified 11/04/25 08:20 hydrocodone bitartrate (From AdvReac Unknown [place] like Verified 11/04/25 08:20 Vicodin) worms were climbing on her legs Penicillins AdvReac Unknown Gets yeast Verified 11/04/25 08:20 infections tetracycline AdvReac per pt. Verified 11/04/25 08:20 I get very bad infections Home Medications ?Medication ?Instructions ?Recorded ?Confirmed ?Type calcium 1,000 mg (as 1 ea PO DAILY 03/28/17 11/04/25 History carbonate)-vitamin D3 20 mcg (800 unit) tablet multivitamin (Daily Multi-Vitamin 1 ea PO DAILY 03/28/17 11/04/25 History tablet) magnesium 250 mg tablet 250 mg PO BID 09/28/19 11/04/25 History carboxymethylcellulose sodium 0.25 1 drp ophthalmic (eye) BID 05/15/20 11/04/25 History % eye drops (TheraTears) acetaminophen 500 mg tablet 500 mg PO Q6H PRN 06/25/24 11/04/25 History (Tylenol Extra Strength) folic acid 1 mg tablet 1 mg PO DAILY #90 tabs 11/01/24 11/04/25 Rx potassium chloride 10 mEq 10 - 20 meq PO BID 04/22/25 11/04/25 History capsule,extended release omeprazole 20 mg capsule,delayed 20 mg PO DAILY #90 caps 05/30/25 11/04/25 Rx release famotidine 20 mg tablet 20 mg PO QHS #90 tabs 06/13/25 11/04/25 Rx atorvastatin 40 mg tablet 40 mg PO QHS #90 tabs 09/24/25 11/04/25 Rx losartan 100 mg tablet 100 mg PO HS #90 tabs 09/24/25 11/04/25 Rx methotrexate sodium 2.5 mg tablet 10 mg (4 x 2.5 mg) PO .WEEKLY #75 09/24/25 11/04/25 Rx tabs prednisone 10 mg tablet 10 mg PO DAILY #90 tabs 09/24/25 11/04/25 Rx Exam Const General: cooperative Neck Neck: supple Resp Effort & Inspection: normal respiratory effort Auscultation: clear to auscultation bilaterally Cardio Rate: regular rate Rhythm: regular rhythm GI Palpation: soft and no masses Neuro General: patient alert, patient awake and patient oriented x3 Results Last Vital Signs Temp 36.2 C L 11/04/25 08:05 Pulse 103 H 11/04/25 08:05 Resp 18 11/04/25 08:05 BP 143/79 H 11/04/25 08:05 Pulse Ox 96 11/04/25 08:05 VTE Prohylaxis Risk Level: Moderate/High Risk Contraindications: None Prophylaxis: Mechanical Time Spent Time spent with Patient: <40 minutes Time was spent: other
--- NOTE | 2025-11-04 10:20 | W.ANESPRE ---
General Info Date of Service Date Performed: 11/04/25 Height: 5 ft 1 in Weight: 72.8 kg Body Mass Index (BMI): 30.3 Surgical Procedure: Operation Date: 11/04/25 10:25 Proposed Procedure Side Surgeon p Cystoscopy/Transurethral Injection of Botox Jonas Farah MD Actual Procedure Side Surgeon p Cystoscopy/Transurethral Injection of Botox Jonas Farah MD Pre-Op Diagnosis Post-Op Diagnosis urinary incontinence urinary incontinence Meds Allergies and Home Medications Allergies Allergy/AdvReac Type Severity Reaction Status Date / Time lisinopril AdvReac Intermediate cough Verified 11/04/25 08:20 hydrocodone bitartrate (From AdvReac Unknown [place] like Verified 11/04/25 08:20 Vicodin) worms were climbing on her legs Penicillins AdvReac Unknown Gets yeast Verified 11/04/25 08:20 infections tetracycline AdvReac per pt. Verified 11/04/25 08:20 I get very bad infections Home Medication ?Medication ?Instructions ?Recorded calcium 1,000 mg (as 1 ea PO DAILY 03/28/17 carbonate)-vitamin D3 20 mcg (800 unit) tablet multivitamin (Daily Multi-Vitamin 1 ea PO DAILY 03/28/17 tablet) magnesium 250 mg tablet 250 mg PO BID 09/28/19 carboxymethylcellulose sodium 0.25 1 drp ophthalmic (eye) BID 05/15/20 % eye drops (TheraTears) acetaminophen 500 mg tablet 500 mg PO Q6H PRN 06/25/24 (Tylenol Extra Strength) folic acid 1 mg tablet 1 mg PO DAILY #90 tabs 11/01/24 potassium chloride 10 mEq 10 - 20 meq PO BID 04/22/25 capsule,extended release omeprazole 20 mg capsule,delayed 20 mg PO DAILY #90 caps 05/30/25 release famotidine 20 mg tablet 20 mg PO QHS #90 tabs 06/13/25 atorvastatin 40 mg tablet 40 mg PO QHS #90 tabs 09/24/25 losartan 100 mg tablet 100 mg PO HS #90 tabs 09/24/25 methotrexate sodium 2.5 mg tablet 10 mg (4 x 2.5 mg) PO .WEEKLY #75 09/24/25 tabs prednisone 10 mg tablet 10 mg PO DAILY #90 tabs 09/24/25 Current Visit Medications: Current Medications Generic Name Dose Route Start Last Admin Trade Name Freq PRN Reason Stop Dose Admin OnabotulinumtoxinA 100 units/ 0 units 11/04/25 06:00 Sodium Chloride 10 ml IJ 11/04/25 23:59 DIRECTED TICO Ringer's Solution 1,000 mls @ 80 mls/hr 11/04/25 06:00 11/04/25 08:40 IV 12/01/25 23:59 80 mls/hr INFUSION TICO Administration Sodium Chloride 0 ml 11/04/25 06:00 Normal Saline Flush 10 Ml Syr IV 12/01/25 23:59 PRN PRN Sodium Chloride 0 ml 11/04/25 06:00 Normal Saline 10 Ml Vial IJ 12/01/25 23:59 DIRECTED PRN Sterile Water 0 ml 11/04/25 06:00 Water,Injection,Sterile 10 Ml Vial IJ 12/01/25 23:59 DIRECTED PRN Trimethoprim/Sulfamethoxazole 1 tab 11/04/25 08:00 11/04/25 09:09 Sulfameth/Trimeth Ds Tab PO 11/04/25 23:59 1 tab .PREMED TICO Administration PFSH Active Problems Active Problems: Problem Status Onset Code Overactive bladder Acute N32.81 GERD (gastroesophageal reflux disease) Chronic K21.9 Aspiration into respiratory tract Acute T17.908A, W44.9XXA Difficulty swallowing Acute R13.10 Arthritis of both glenohumeral joints Acute M19.011, M19.012 Bilateral shoulder pain Acute M25.511, M25.512 Asymmetrical sensorineural hearing loss Acute H90.3 Cerumen impaction Acute H61.20 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 Eye abnormality Acute Q15.9 Memory changes Acute R41.3 Urinary incontinence Acute R32 Deep vein thrombosis (DVT) of lower extremity Acute 08/29/17 I82.409 Diverticulosis Chronic K57.90 Hypertension Chronic I10 Lumbar stenosis with neurogenic claudication Chronic 05/03/17 M48.062 Osteopenia Chronic M85.80 Vitamin D deficiency Chronic 05/31/17 E55.9 Medical History Medical History (Updated 11/04/25 @ 10:16 by Jonas Farah MD) Hypokalemia Edema, peripheral Right rotator cuff tendonitis Degenerative joint disease of right hip Impacted cerumen of both ears Bilateral edema of lower extremity (04/01/17) Overweight Pain in posterior left lower extremity (07/06/17) Skin sensation disturbance Disturbance of skin sensation Overweight Pain in posterior left lower extremity 07/06/17 DVT of lower extremity (deep venous thrombosis) 08/29/17 Cough due to JONNY inhibitor 10/24/17 Knee pain, bilateral Family history of diabetes mellitus Hyperlipidemia Pain in right shoulder Polymyalgia rheumatica Pronation of both feet (07/03/18) Sciatica, right side Urge incontinence Surgical History Surgical History History of nasal surgery Nasal Reconstruction due to breathing issues History of bilateral total hip arthroplasty (06/11/20) History of cataract surgery Bilateral cataract 05/2020 Nuclear sclerotic cataract of right eye Nuclear sclerotic cataract of left eye s/p cataract VAGINAL 1965 1967 1972 Sinus Endoscopy resulting in all teeth being pulled Pyoderma and Abcesses Open Carpal Tunnel release 06/09/17 B/L;DR. MEJIA 10/31/17 B/L; DR. MEJIA Left ankle fracture 2003 Tobacco Smoking/Tobacco Use Status: Never Passive smoking exposure: Yes Second hand exposure: Yes Alcohol Alcohol Intake: never Substance Use Substance use: Never Substance use type: does not use Vital Signs and Lab Results Vital Signs Most Recent Vital Signs in EMR: Most Recent Vital Signs Temp Pulse Resp BP Pulse Ox 36.2 C L 103 H 18 143/79 H 96 11/04/25 08:05 11/04/25 08:05 11/04/25 08:05 11/04/25 08:05 11/04/25 08:05 Lab Results Complete Blood Count: WBC, (4.4-10.8) 11.88 10^3/uL H 10/25/25, 14:20 RBC, (3.93-5.22) 4.13 10^6/uL 10/25/25, 14:20 Hgb, (11.2-15.7) 13.1 g/dL 10/25/25, 14:20 Hct, (36.0-46.0) 40.3 % 10/25/25, 14:20 Plt Count, (130-400) 212 10^3/uL 10/25/25, 14:20 Complete Metabolic Panel: Sodium, (136-145) 145 mmol/L 10/25/25, 14:20 Potassium, (3.5-5.1) 4.5 mmol/L 10/25/25, 14:20 Chloride, (98-107) 112 mmol/L H 10/25/25, 14:20 Carbon Dioxide, (20.0-31.0) 22.5 mmol/L 10/25/25, 14:20 BUN, (9-23) 19 mg/dL 10/25/25, 14:20 Creatinine, (0.55-1.02) 1.05 mg/dL H 10/25/25, 14:20 Est GFR (CKD-EPI 2020), (mL/min/1.73m2) 50.40 10/25/25, 14:20 Calcium, (8.3-10.6) 8.9 mg/dL 10/25/25, 14:20 Albumin, (3.2-5.0) 4.2 g/dL 10/25/25, 14:20 Glucose, (74-106) 104 mg/dL 10/25/25, 14:20 C-Reactive Protein, (<=0.50) < 0.50 mg/dL 10/25/25, 14:20 Liver Function Panel: ALT, (10-49) 27 U/L 10/25/25, 14:20 AST, (<34) 30 U/L 10/25/25, 14:20 Imaging and Studies Imaging and Studies Study information below may be from another EMR and interpreted by another provider. Please see original notes in EMR for more complete details. Echocardiogram Summary: 04/19/2017: Summary: 1. Left ventricle: The cavity size was normal. There was mild focal basal hypertrophy of the septum. Systolic function was normal. The estimated ejection fraction was 55-60%. Wall motion was normal; there were no regional wall motion abnormalities. 2. Right ventricle: The cavity size was normal. Systolic function was normal. 3. Mitral valve: There was mild regurgitation. 4. Pulmonary arteries: Pulmonary systolic pressure was within the normal range, in the range of 25mm Hg to 30mm Hg. 5. Inferior vena cava: The vessel was normal in size. The respirophasic diameter changes were in the normal range (greater than or equal to 50%), consistent with normal central venous pressure. Anesthesia Assessment and Plan Anesthesia History Personal History: No History of Anesthesia Complications Family History: No Family History of Anesthesia Complications Exercise Tolerance Exercise Tolerance: Metabolic Equivalents>4 Pertinent Negatives Pertinent Negatives: No Symptoms of GERD Cardiac & Pulmonary Exam Cardiac Exam: Normal S1/S2 Heart Sounds Pulmonary Exam: Clear Bilateral Breath Sounds Implantable Cardiac Device Does patient have a Pacemaker or an ICD?: No Airway Exam Known Difficult Airway: No Mallampati Class: 2 Mouth Opening: Normal (> 3cm) Thyromental Distance: Less than 3 cm Neck Range of Motion: Full ROM Neck Circumference: Normal Teeth Condition: Removable Dentures/Plates Upper and Removable Dentures/Plates Lower ASA Classification ASA Score: ASA 2 Emergency Case?: No NPO Status NPO Status: NPO Clears >2 hours, Solids >8 hours Anesthesia Plan Resuscitation Status: Full Code Anesthesia Technique: General Anesthesia Airway Planned: Natural Airway Monitors Used: Standard Monitors
[2025-11-04 10:39] VITALS: BMI 30.3
[2025-11-04] MEDS: Lidocaine 2% Jelly 6 ML SYR (11:03)
[2025-11-04] MEDS: [UNRECOGNIZED DRUG - OTHER] IJ (11:04)
[2025-11-04] MEDS: NORMAL SALINE IJ (11:04)
--- NOTE | 2025-11-04 11:12 | W.PM.DSUDISC ---
Date of service: 11/04/25 Discharge Plan Disposition Patient Disposition: Home Condition: Stable Discharge Details Reason For Visit: cystoscopy with Botox Attending Provider: Jonas Farah Primary Care Provider: Kiera Ji Home Meds and New Rx's Prescriptions: No Action TheraTears 0.25 % drops 1 drp ophthalmic (eye) BID atorvastatin 40 mg tablet 40 mg PO QHS Qty: 90 4RF losartan 100 mg tablet 100 mg PO HS Qty: 90 4RF methotrexate sodium 2.5 mg tablet 10 mg PO .WEEKLY Qty: 75 5RF prednisone 10 mg tablet 10 mg PO DAILY Qty: 90 3RF folic acid 1 mg tablet 1 mg PO DAILY Qty: 90 4RF famotidine 20 mg tablet 20 mg PO QHS Qty: 90 5RF multivitamin [Daily Multi-Vitamin] 1 EACH tablet 1 ea PO DAILY calcium carbonate-vitamin D3 1 EACH tablet 1 ea PO DAILY magnesium 250 mg tablet 250 mg PO BID omeprazole 20 mg capsule,delayed release(DR/EC) 20 mg PO DAILY Qty: 90 4RF acetaminophen [Tylenol Extra Strength] 500 mg tablet 500 mg PO Q6H PRN potassium chloride 10 mEq capsule, extended release 10 - 20 meq PO BID Rx Instructions: take more if advised by JMD. Discharge Instructions Additional Instructions: followup 6 months Stand Alone Forms: Portal Information Activity:: Activity as Tolerated Shower/Bathe:: 24 hours Diet:: As Tolerated Discharge Orders Discharge Orders: Discharge Order (Routine); Ordered 11/04/25 Ordered By: Jonas Farah DS: Diagnosis Discharge Diagnosis (1) Urinary incontinence: Status: Acute (2) Overactive bladder: Status: Acute
[2025-11-04 11:13] VITALS: BP 117/59; PULSE 70; RESP 16; TEMP 35.8; O2SAT 98
--- NOTE | 2025-11-04 11:13 | W.PM.OP ---
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 She has failed behavioral modification and oral medications. 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 Her previous injection was over 6 months ago. She presents for repeat injection. Findings: Normal bladder Procedure Description: The patient was given oral antibiotics and brought to the operating room on 11/04/2025. After successful induction of general anesthesia without intubation, she was placed in the dorsal lithotomy position. Her genitalia was prepped and draped. 2% Xylocaine jelly was instilled into the urethra. A 20 [place] urethrotome sheath was passed through the urethra into the bladder. Using a transurethral injection system, we injected a total of 100 units of Botox into the detrusor muscle. The Botox had been diluted in 10 mL of dilute. A total of 0.5 cc of a solution was then injected into 20 different locations. We injected on the posterior bladder wall in a grid pattern. We utilized 5 vertical rows and 4 horizontal rows. We avoided the trigone and bladder neck with our injections. The bladder was then emptied and the scope was removed. The patient tolerated the procedure well. She was taken back to the day surgery unit in stable condition. Date of Procedure: 11/04/25
[2025-11-04] MEDS: Phenazopyridine 200 MG TAB PO (11:31)
[2025-11-04 11:45] VITALS: BP 166/78; PULSE 91; RESP 16; TEMP 36; O2SAT 100
--- NOTE | 2025-11-04 11:46 | W.ANESPOSTOP ---
Postoperative Evaluation Date, Time and Location Date Performed: 11/04/25 Time Performed: 11:13 Patient Location: Day Surgery Unit Vital Signs Most Recent Imported Vital Signs: Most Recent Vital Signs Temp Pulse Resp BP Pulse Ox 35.8 C L 70 16 117/59 L 98 11/04/25 11:13 11/04/25 11:13 11/04/25 11:13 11/04/25 11:13 11/04/25 11:13 Pain Score Most Recent Pain Score: Most Recent Pain Score Pain Level 0 11/04/25 11:13 Assessment Mental Status: Awake (Alert & Oriented to Patient Baseline) Airway and Respiratory Function: Patent airway with normal (patient baseline) respiratory exam Cardiovascular Function: Hemodynamically Stable Hydration Status: Adequately Hydrated Nausea & Vomiting: No Nausea or Vomiting Pain: Pt. Denies Any Pain Peripheral Nerve Block: Patient did not receive a nerve block
== END 2025-11-04 12:05 | disposition home or self-care (01) ==
PROVIDERS: PCP Family Medicine; Visit Provider Urology
PROC: (CPT 52287; principal; 2025-11-04 10:15)
DX: N32.81 Overactive bladder (principal); N39.46 Mixed incontinence
CPT/HCPCS: 52287; J0585; J2704